=== PATIENT | female | born 1950 | race Caucasian/White ===

== ENCOUNTER → 2017-01-12 | Outpatient (CLI) | payer BC ==
[~2017-01-12] MED LIST: ACET65TA OR; ASPI81TA83 AD; BENI20TA11 OR; CETI10TA OR; K-TA10TA OR; PRIL20CA OR; SYNT137T OR
[2017-01-12 07:30] LABS: MEAN CORPUSCULAR HEMOGLOBIN 31.4 pg (27.0-33.0); MEAN CORPUSCULAR HGB CONC 33.8 g/dl (32.0-36.5); RED CELL DISTRIBUTION WIDTH 12.9 % (11.5-14.5); WHITE BLOOD COUNT 6.9 10^3/uL (4.0-10.0)
[2017-01-12 07:58] LABS: ALBUMIN 3.8 GM/DL (3.2-5.2); ALBUMIN/GLOBULIN RATIO 1.09 (1.00-1.93); ALKALINE PHOSPHATASE 77 U/L (45-117); ALT/SGPT 25 U/L (12-78); ANION GAP 10 MEQ/L (8-16); AST/SGOT 20 U/L (15-37); BILIRUBIN,TOTAL 0.6 MG/DL (0.2-1.0); BLOOD UREA NITROGEN 17 MG/DL (7-18); CALCIUM LEVEL 9.3 MG/DL (8.8-10.2); CARBON DIOXIDE LEVEL 27 MEQ/L (21-32); CHLORIDE LEVEL 104 MEQ/L (98-107); CHOLESTEROL LEVEL 234 MG/DL (<200); CREATININE FOR GFR 0.77 MG/DL (0.55-1.02); GLOMERULAR FILTRATION RATE > 60.0 (>45); GLUCOSE, FASTING 101 MG/DL (80-110); POTASSIUM SERUM 4.1 MEQ/L (3.5-5.1); SODIUM LEVEL 141 MEQ/L (136-145); TOTAL PROTEIN 7.3 GM/DL (6.4-8.2); TRIGLYCERIDES LEVEL 114 MG/DL (<150)
--- NOTE | 2017-01-12 08:01 | REP ---
Clinical: Hypertension . Comparison: 09/27/2013 . Technique: PA and lateral. Findings: The mediastinum and cardiac silhouette are normal. The lung dahl are clear and without acute consolidation, effusion, or pneumothorax. The skeletal structures are intact and normal. Impression: 1. No acute cardiopulmonary process. Signed by Luis Sheth MD 01/12/2017 07:52 A
--- NOTE | 2017-01-12 21:05 | ECGEPIP ---
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
== END ==
LOC: M RAD 06:07
PROVIDERS: ATTEND Family Medicine
DX: I10 Essential (primary) hypertension (principal); R53.83 Other fatigue

== ENCOUNTER 2017-09-25 07:24 | Emergency (ER) | payer MEDICARE ==
[2017-09-25] MEDS ORDERED: ISOVUE-370 76% 100ML VIAL (Q9967) As Ordered (07:51)
[2017-09-25] MEDS: PROMETHAZINE INJ 25 MG/ML VIAL (J2550) IV (08:12)
[2017-09-25] MEDS: MORPHINE 2 MG/ML 1ML SYRINGE (J2270) IV (08:29)
[2017-09-25 08:47] LABS: ALBUMIN 3.1 GM/DL (3.2-5.2); ALBUMIN/GLOBULIN RATIO 0.74 (1.00-1.93); ALKALINE PHOSPHATASE 73 U/L (45-117); ALT/SGPT 25 U/L (12-78); ANION GAP 6 MEQ/L (8-16); AST/SGOT 15 U/L (7-37); BILIRUBIN,DIRECT 0.1 MG/DL (0.0-0.2); BILIRUBIN,TOTAL 0.4 MG/DL (0.2-1.0); BLOOD UREA NITROGEN 12 MG/DL (7-18); CALCIUM LEVEL 8.6 MG/DL (8.8-10.2); CARBON DIOXIDE LEVEL 28 MEQ/L (21-32); CHLORIDE LEVEL 103 MEQ/L (98-107); CK-MB VALUE MASS < 1.0 NG/ML (<3.6); CPK CREATINE PHOSPHOKINASE 125 U/L (26-192); CREATININE FOR GFR 0.78 MG/DL (0.55-1.30); GLOMERULAR FILTRATION RATE > 60.0 (>45); GLUCOSE, FASTING 153 MG/DL (70-100); LIPASE 140 U/L (73-393); POTASSIUM SERUM 3.2 MEQ/L (3.5-5.1); SODIUM LEVEL 137 MEQ/L (136-145); TOTAL PROTEIN 7.3 GM/DL (6.4-8.2); TROPONIN I < 0.02 NG/ML (< 0.10)
[2017-09-25] MEDS: diphenhydrAMINE INJ 50MG/ML VIAL (J1200) IV (09:40)
[2017-09-25] MEDS: methylPREDNISolone INJ 125 MG/2 ML VIAL (J2930) IV (09:40)
[2017-09-25] MEDS: KETOROLAC 30 MG/ML VIAL (J1885) IV (10:56)
[2017-09-25] MEDS: AZITHROMYCIN 250 MG TAB PO (12:20)
== END 2017-09-25 12:37 | disposition home or self-care (01) ==
LOC: M ED 07:24
DX: R51 Headache (principal); R07.9 Chest pain, unspecified; R91.8 Other nonspecific abnormal finding of lung field; J02.0 Streptococcal pharyngitis; I10 Essential (primary) hypertension; E03.9 Hypothyroidism, unspecified; Z79.890 Hormone replacement therapy; Z79.899 Other long term (current) drug therapy; Z87.440 Personal history of urinary (tract) infections; Z86.69 Personal history of other diseases of the nervous system and sense organs; Z85.3 Personal history of malignant neoplasm of breast; Z87.09 Personal history of other diseases of the respiratory system; Z98.890 Other specified postprocedural states; Z88.8 Allergy status to other drugs, medicaments and biological substances; Z88.1 Allergy status to other antibiotic agents; Z88.2 Allergy status to sulfonamides
CPT/HCPCS: J1200

== ENCOUNTER → 2017-10-07 | Outpatient (CLI) | payer MEDICARE ==
[2017-10-07 20:09] LABS: BASO # 0.1 10^3/uL (0.0-0.2); BASO % 0.4 % (0.0-1.0); EOS # 0.2 10^3/uL (0.0-0.50); EOS % 1.3 % (0.0-3.0); HEMATOCRIT 41.3 % (36.0-47.0); HEMOGLOBIN 13.6 g/dl (12.0-15.5); LYMPH # 2.7 10^3/uL (1.5-4.5); LYMPH % 19.6 % (24.0-44.0); MEAN CORPUSCULAR HEMOGLOBIN 30.9 pg (27.0-33.0); MEAN CORPUSCULAR HGB CONC 32.9 g/dl (32.0-36.5); MEAN CORPUSCULAR VOLUME 93.9 fl (80.0-96.0); MONO # 0.8 10^3/uL (0.0-0.8); NEUTROPHILS # 9.7 10^3/uL (1.8-7.7); NEUTROPHILS % 71.7 % (36.0-66.0); PLATELET COUNT, AUTOMATED 282 10^3/uL (150-450); RED CELL DISTRIBUTION WIDTH 12.9 % (11.5-14.5); WHITE BLOOD COUNT 13.5 10^3/uL (4.0-10.0)
== END ==
LOC: M WUC 15:30
DX: R91.8 Other nonspecific abnormal finding of lung field (principal)
CPT/HCPCS: 86713

== ENCOUNTER → 2017-10-19 | Outpatient (CLI) | payer MEDICARE | LOC: M SMT 09:17 | DX: R91.8 Other nonspecific abnormal finding of lung field (principal) | CPT/HCPCS: 71046 ==

== ENCOUNTER → 2017-11-15 | Outpatient (CLI) | payer MEDICARE | LOC: M RAD 07:10 | DX: J84.10 Pulmonary fibrosis, unspecified (principal) | CPT/HCPCS: 71250 ==

== ENCOUNTER → 2018-11-17 | Outpatient (CLI) | payer MEDICARE ==
[~2018-11-17] MED LIST changes: +AZIT500T2 PO; +LOSARTAN/HCT
[2018-11-17 10:48] LABS: HEMATOCRIT 42.2 % (36.0-47.0); MEAN CORPUSCULAR HEMOGLOBIN 31.4 pg (27.0-33.0); MEAN CORPUSCULAR HGB CONC 33.2 g/dl (32.0-36.5); MEAN CORPUSCULAR VOLUME 94.6 fl (80.0-96.0); PLATELET COUNT, AUTOMATED 207 10^3/uL (150-450); RED BLOOD COUNT 4.46 10^6/uL (4.00-5.40); WHITE BLOOD COUNT 6.3 10^3/uL (4.0-10.0)
[2018-11-17 11:16] LABS: ALBUMIN 3.8 GM/DL (3.2-5.2); ALT/SGPT 28 U/L (12-78); AMYLASE 25 U/L (25-115); BILIRUBIN,TOTAL 0.4 MG/DL (0.2-1.0); BLOOD UREA NITROGEN 16 MG/DL (7-18); CALCIUM LEVEL 9.3 MG/DL (8.8-10.2); CARBON DIOXIDE LEVEL 31 MEQ/L (21-32); CHLORIDE LEVEL 105 MEQ/L (98-107); CREATININE FOR GFR 0.76 MG/DL (0.55-1.30); GLOMERULAR FILTRATION RATE > 60.0 (>45); GLUCOSE, FASTING 98 MG/DL (70-100); POTASSIUM SERUM 4.2 MEQ/L (3.5-5.1); SODIUM LEVEL 141 MEQ/L (136-145); TOTAL PROTEIN 7.1 GM/DL (6.4-8.2)
== END ==
LOC: M RAD 09:10
PROVIDERS: ATTEND Family Medicine
DX: K85.92 Acute pancreatitis with infected necrosis, unspecified (principal); Z79.899 Other long term (current) drug therapy

== ENCOUNTER → 2018-11-23 | Outpatient (CLI) | payer MEDICARE ==
[~2018-11-23] MED LIST changes: -AZIT500T2 PO; +AZIT500T5 PO; +GASTROGRAFIN SOLUTION 30ML (Q9963) As Ordered ONE; +ISOVUE-370 76% 100ML VIAL (Q9967) As Ordered ONE
--- NOTE | 2018-11-23 13:51 | REP ---
CT ABDOMEN WITH ORAL CONTRAST, WITH AND WITHOUT IV CONTRAST: TECHNIQUE: Axial noncontrast images through the abdomen followed by contrast-enhanced images through the abdomen using 100 mL Isovue 370 intravenous contrast material, with coronal and sagittal reformations. The visualized lung bases are clear. Tiny cyst or hemangioma seen at the right dome of the liver. This measures only a few millimeters in diameter. No other liver abnormality is seen. The gallbladder is mildly distended and grossly unremarkable. I do not see definite biliary dilatation. The spleen is normal in size with no intrinsic abnormality. The adrenals and pancreas are grossly unremarkable. A couple of tiny subcentimeter cysts are seen in the left kidney. No nephrolithiasis is seen bilaterally and there is no hydroureteronephrosis, with the ureters visualized into the upper pelvis. There is no abdominal aortic aneurysm with mild scattered arthrosclerotic calcification. There is no adenopathy. There is no free air or free fluid in the abdomen. No bowel wall thickening is seen. The appendix is normal. Metallic clips are seen in the anterior abdominal wall. There is a partially imaged left ovarian cyst, diameter of the visualized portion is 3.4 cm maximally. There are degenerative changes of the spine. IMPRESSION: Tiny liver and left renal cysts. No free air, free fluid, adenopathy, or bowel abnormality. In the visualized upper pelvis, a partially imaged cyst is seen of the left ovary 3.4 cm in maximum diameter. Recommend pelvic ultrasound to further evaluate. Electronically Signed by Barrett Deleon MD 11/24/2018 07:43 A
== END ==
LOC: M RAD 08:30
PROVIDERS: ATTEND Family Medicine
DX: N83.202 Unspecified ovarian cyst, left side (principal); K76.89 Other specified diseases of liver; N28.1 Cyst of kidney, acquired
CPT/HCPCS: 74170; Q9963; Q9967

== ENCOUNTER → 2018-12-02 | Outpatient (CLI) | payer MEDICARE ==
[~2018-12-02] MED LIST changes: +AZIT500T2 PO; -AZIT500T5 PO; -GASTROGRAFIN SOLUTION 30ML (Q9963) As Ordered ONE; -ISOVUE-370 76% 100ML VIAL (Q9967) As Ordered ONE
--- NOTE | 2018-12-02 10:30 | REP ---
REASON: Left lower quadrant pain. COMPARISON: 02/25/2009. Transvesical and transvaginal imaging was obtained. The uterus measures 6.9 x 37 x 3.7 cm. Two hypoechoic structures are seen in the uterine parenchyma. One is anterior measuring 1 cm in its greatest dimension, the other seen posterior measuring 1.5 cm in its greatest dimension both representing myomatous change. The endometrial echo complex is thin with a maximal thickness of approximately 2 mm but slightly distorted by the myomatous change. There is no free fluid in the endometrial cavity and there is no free fluid in the cervical canal. The right ovary was not visualized transvesically or transvaginally. The left ovary measures 3.9 x 2.6 x 3.8 cm. Within the substance of the left ovary, there is a 3 cm size anechoic structure, which exhibits posterior wall enhancement and increased through transmission showing no evidence of papillary projections or septations. The urinary bladder measures 5 x 4 x 10 cm. IMPRESSION: 1. Uterine myomatous changes as described above. 2. Left ovarian cyst. 2-month followup is recommended to ensure resolution. Electronically Signed by Jose Martin Willingham DO 12/02/2018 02:12 P
== END ==
LOC: M RAD 08:20
PROVIDERS: ATTEND Family Medicine
DX: R10.32 Left lower quadrant pain (principal); N83.9 Noninflammatory disorder of ovary, fallopian tube and broad ligament, unspecified

== ENCOUNTER → 2018-12-22 | Outpatient (CLI) | payer MEDICARE ==
[~2018-12-22] MED LIST changes: -AZIT500T2 PO; +AZIT500T5 PO
--- NOTE | 2018-12-22 12:59 | REP ---
Clinical: Abnormal lung findings. Technique: Axial noncontrast images from the thoracic inlet to the upper abdomen with coronal and sagittal re-formations. Comparison: 11/08/2017. Findings: Bilateral lung dahl are well-aerated, symmetric and clear. Previously noted left lower lobe infiltrate has completely resolved. No acute consolidation,, nodule or mass lesion. No pleural effusion. No pneumothorax. Tracheobronchial tree is patent. No adenopathy. Mediastinum demonstrates normal thoracic aorta, pulmonary vasculature and heart/pericardium. Musculoskeletal structures are intact. Limited upper abdomen demonstrates normal bilateral adrenal glands. Evidence for prior bilateral mastectomy. Impression: 1. No acute mediastinal or pleuroparenchymal process appreciated. 2. Complete resolution to the previously noted left lower lobe infiltrate. Electronically Signed by Luis Sheth MD 12/22/2018 12:50 P
== END ==
LOC: M RAD 12:29
PROVIDERS: ATTEND Internal Medicine Pulmonary Disease
DX: R91.8 Other nonspecific abnormal finding of lung field (principal); Z90.13 Acquired absence of bilateral breasts and nipples

== ENCOUNTER → 2019-02-06 | Outpatient (CLI) | payer MEDICARE ==
--- NOTE | 2019-02-06 11:33 | REP ---
PELVIC ULTRASOUND: Real-time sonographic evaluation of the pelvis is performed utilizing transabdominal and endovaginal technique. The bladder measures 4.9 x 3.8 x 8.9 cm. The uterus measures 7.6 x 3.6 x 4.2 cm. Endometrial thickness is approximately 2 mm. There is no endometrial fluid collection. There appears to be a fundal fibroid 1.3 cm in diameter. There is an adjacent subcentimeter fibroid. Right ovary is not visualized. Left ovary measures 4.4 x 2.8 x 3.7 cm. There is a simple cyst in the left ovary 3.3 x 2.4 x 2.8 cm. This is essentially unchanged compared to the prior study of 12/02/2018. Blood flow is seen in the left ovary with duplex Doppler evaluation, with no torsion. No free fluid is seen. IMPRESSION: Fibroid changes again seen of the uterus. Simple cyst left ovary is stable compared to the prior study of 12/02/2018. Electronically Signed by Barrett Deleon MD 02/07/2019 05:32 P
== END ==
LOC: M RAD 10:22
PROVIDERS: ATTEND Nurse Practitioner Women's Health
DX: N83.202 Unspecified ovarian cyst, left side (principal); D25.9 Leiomyoma of uterus, unspecified

== ENCOUNTER → 2019-02-20 | Outpatient (CLI) | payer MEDICARE ==
[2019-02-20 10:07] LABS: HEMATOCRIT 45.6 % (36.0-47.0); HEMOGLOBIN 14.9 g/dl (12.0-15.5); MEAN CORPUSCULAR HGB CONC 32.7 g/dl (32.0-36.5); MEAN CORPUSCULAR VOLUME 94.8 fl (80.0-96.0); PLATELET COUNT, AUTOMATED 216 10^3/uL (150-450); RED BLOOD COUNT 4.81 10^6/uL (4.00-5.40); WHITE BLOOD COUNT 6.1 10^3/uL (4.0-10.0)
[2019-02-20 10:28] LABS: INR 1.05; PROTHROMBIN TIME 13.4 SECONDS (11.8-14.0)
[2019-02-20 10:46] LABS: ALBUMIN 3.9 GM/DL (3.2-5.2); ALT/SGPT 28 U/L (12-78); BILIRUBIN,TOTAL 0.5 MG/DL (0.2-1.0); BLOOD UREA NITROGEN 16 MG/DL (7-18); CALCIUM LEVEL 9.3 MG/DL (8.8-10.2); CARBON DIOXIDE LEVEL 29 MEQ/L (21-32); CHLORIDE LEVEL 107 MEQ/L (98-107); CHOLESTEROL LEVEL 244 MG/DL (<200); CHOLESTEROL RISK RATIO 3.436 (<5); CREATININE FOR GFR 0.83 MG/DL (0.55-1.30); GLOMERULAR FILTRATION RATE > 60.0 (>45); GLUCOSE, FASTING 101 MG/DL (70-100); HDL CHOLESTEROL 71 MG/DL (>40); LDL CHOLESTEROL 155 MG/DL (<100); NON-HDL-C 173 MG/DL; POTASSIUM SERUM 4.1 MEQ/L (3.5-5.1); SODIUM LEVEL 142 MEQ/L (136-145); THYROID STIMULATING HORMONE 0.528 uIU/ML (0.358-3.740); TOTAL PROTEIN 7.6 GM/DL (6.4-8.2); TRIGLYCERIDES LEVEL 88 MG/DL (<150)
[2019-02-20 11:06] LABS: HEMOGLOBIN A1c 5.5 %
--- NOTE | 2019-02-20 11:34 | REP ---
CHEST X-RAY: Two views. HISTORY: Preop eye surgery. Comparison chest x-ray October 19, 2017. FINDINGS: The lungs are symmetrically aerated and clear. There are surgical clips overlying the axillary soft tissues bilaterally. The patient appears to be status post bilateral mastectomy. Pleural angles are sharp. Heart size is normal. There are degenerative changes in the thoracic spine. IMPRESSION: Patient status post bilateral mastectomy. Surgical clips are noted. Degenerative changes are seen in the thoracic spine. Otherwise no acute disease. Electronically Signed by Remi Jiménez MD 02/20/2019 12:38 P
--- NOTE | 2019-02-20 21:48 | ECGEPIP ---
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
== END ==
LOC: M LAB 09:44
PROVIDERS: ATTEND Family Medicine
DX: I10 Essential (primary) hypertension (principal); Z90.13 Acquired absence of bilateral breasts and nipples; M51.34 Other intervertebral disc degeneration, thoracic region; Z79.899 Other long term (current) drug therapy

== ENCOUNTER → 2019-12-19 | Outpatient (CLI) | payer MEDICARE ==
[2019-12-19 06:43] LABS: HEMATOCRIT 42.9 % (36.0-47.0); HEMOGLOBIN 14.2 g/dl (12.0-15.5); MEAN CORPUSCULAR HEMOGLOBIN 31.2 pg (27.0-33.0); MEAN CORPUSCULAR HGB CONC 33.1 g/dl (32.0-36.5); MEAN CORPUSCULAR VOLUME 94.3 fl (80.0-96.0); PLATELET COUNT, AUTOMATED 207 10^3/uL (150-450); RED BLOOD COUNT 4.55 10^6/uL (4.00-5.40); WHITE BLOOD COUNT 7.9 10^3/uL (4.0-10.0)
[2019-12-19 07:20] LABS: ALBUMIN 3.8 GM/DL (3.2-5.2); ALT/SGPT 28 U/L (12-78); BILIRUBIN,TOTAL 0.4 MG/DL (0.2-1.0); BLOOD UREA NITROGEN 17 MG/DL (7-18); CARBON DIOXIDE LEVEL 31 MEQ/L (21-32); CHLORIDE LEVEL 106 MEQ/L (98-107); CHOLESTEROL LEVEL 229 MG/DL (<200); CHOLESTEROL RISK RATIO 3.948 (<5); CREATININE FOR GFR 0.75 MG/DL (0.55-1.30); GLOMERULAR FILTRATION RATE > 60.0 (>45); GLUCOSE, FASTING 101 MG/DL (70-100); HDL CHOLESTEROL 58 MG/DL (>40); LDL CHOLESTEROL 150 MG/DL (<100); NON-HDL-C 171 MG/DL; SODIUM LEVEL 140 MEQ/L (136-145); TOTAL PROTEIN 7.1 GM/DL (6.4-8.2); TRIGLYCERIDES LEVEL 107 MG/DL (<150)
[2019-12-19 07:44] LABS: HEMOGLOBIN A1c 5.6 %
[2019-12-19 10:14] LABS: TOTAL 25(OH) VITAMIN D 37.4 NG/ML (30.0-100.0)
== END ==
LOC: M LAB 06:01
PROVIDERS: ATTEND Family Medicine
DX: I10 Essential (primary) hypertension (principal); E11.9 Type 2 diabetes mellitus without complications; E03.9 Hypothyroidism, unspecified; R53.83 Other fatigue

== ENCOUNTER → 2020-10-23 | Outpatient (REF) | payer MEDICARE | LOC: M LAB REF 12:10 | PROVIDERS: ATTEND Internal Medicine | DX: R10.9 Unspecified abdominal pain (principal) ==

== ENCOUNTER 2020-11-05 06:29 | Emergency (ER) | payer MEDICARE ==
[~2020-11-05] VITALS: Ht 157.5 cm; Wt 81.8 kg
[2020-11-05 06:30] VITALS: BP 178/93
[2020-11-05] MEDS ORDERED: HYDR12.55 (06:39)
[2020-11-05] MEDS ORDERED: SYNT137T7 (06:39)
[2020-11-05] MEDS ORDERED: LOSA50TA88 (06:39)
[2020-11-05] MEDS ORDERED: DOXY100T27 (06:39)
[2020-11-05] MEDS ORDERED: PRED20TA (06:39)
[2020-11-05] MEDS ORDERED: POTA1TAB23 (06:39)
[2020-11-05] MEDS ORDERED: ALBU8.5H (06:39)
--- NOTE | 2020-11-05 08:10 | REP ---
INDICATION: cough x10 days. COMPARISON: Comparison radiographs September 27, 2013.. TECHNIQUE: Three views, soft tissue neck series. FINDINGS: There is straightening of the normal cervical lordosis. Degenerative disc disease is noted at C5-6 and C6-7 similar to the changes seen on the 2014 prior study. The prevertebral soft tissues are not widened. Epiglottis and aryepiglottic folds are intact. The laryngeal and subglottic airway is unremarkable. Nasopharynx and hypopharynx appear clear. IMPRESSION: Negative soft tissue neck radiographs apart from some spondylosis in the cervical spine. <Electronically signed by Conor Jiménez > 11/05/20 0868
--- NOTE | 2020-11-05 08:12 | REP ---
INDICATION: cough x10 days. COMPARISON: 02/20/2019 TECHNIQUE: Two views FINDINGS: The lung dahl are well inflated. CP angles sharply defined without effusion and there is no lateral pleural thickening, apical scarring, pulmonary nodule or parenchymal mass. Prominent epicardial fat pad along the right heart border again seen. Heart is not enlarged. No vascular redistribution. The aorta is normal for age. Airway intact. Degenerative changes in the spine. No free air under the diaphragm. The patient is status post bilateral mastectomy with axillary surgical clips bilaterally. IMPRESSION: Prior bilateral mastectomy without acute cardiopulmonary change. <Electronically signed by Jeffery Greenberg > 11/05/20 0819
[2020-11-05] MEDS ORDERED: ONDANSETRON 4MG/2ML VIAL IV ONE (09:10)
[2020-11-05] MEDS ORDERED: NS 1,000 ML IV ONE (09:10)
[2020-11-05] MEDS ORDERED: ACETAMINOPHEN 500 MG TAB PO ONE (09:10)
--- NOTE | 2020-11-05 09:42 | REP ---
INDICATION: headache, nausea. COMPARISON: None. TECHNIQUE: CT BRAIN PERFORMED IN THE AXIAL PLANE. CORONAL RECONSTRUCTION IMAGES ARE PERFORMED. FINDINGS: THE VENTRICLES ARE NORMAL IN SIZE AND POSITION FOR HER GIVEN AGE. THERE IS NO MIDLINE SHIFT OR MASS EFFECT. MONTERO-WHITE DIFFERENTIATION IS WELL MAINTAINED. THERE IS NO ACUTE INTRACRANIAL HEMORRHAGE OR EXTRA-AXIAL FLUID COLLECTION. BONE WINDOW EXAMINATION IS UNREMARKABLE. VISUALIZED MASTOID AIR CELLS AND PARANASAL SINUSES ARE CLEAR. IMPRESSION: NEGATIVE NONCONTRAST CT BRAIN. <Electronically signed by Jeffery Greenberg > 11/05/20 0938
[2020-11-05 09:52] LABS: HEMATOCRIT 49.7 % (36.0-47.0); HEMOGLOBIN 16.5 g/dl (12.0-15.5); MEAN CORPUSCULAR HEMOGLOBIN 31.1 pg (27.0-33.0); MEAN CORPUSCULAR HGB CONC 33.2 g/dl (32.0-36.5); MEAN CORPUSCULAR VOLUME 93.8 fl (80.0-96.0); PLATELET COUNT, AUTOMATED 237 10^3/uL (150-450); WHITE BLOOD COUNT 14.8 10^3/uL (4.0-10.0)
[2020-11-05] MEDS ORDERED: ALBUTEROL 90 MCG/ACT 8GM HFA INHALER INH ONE (10:00)
[2020-11-05] MEDS ORDERED: BENZONATATE 100 MG CAP PO ONE (10:00)
[2020-11-05 10:46] LABS: ATYPICAL LYMPH 7 % (0-5); BASOPHILS 1 % (0-1); LYMPHOCYTES 27 % (16-44); MONOCYTES 8 % (0-5); NEUTROPHILS 56 % (28-66)
[2020-11-05 10:47] LABS: EOSINOPHILS 1 % (0-3)
[2020-11-05 10:48] LABS: PLATELET ESTIMATE NORMAL (NORMAL)
[2020-11-05 12:08] LABS: ALBUMIN 3.7 GM/DL (3.2-5.2); ALT/SGPT 52 U/L (12-78); AMYLASE 17 U/L (25-115); BILIRUBIN,DIRECT < 0.1 MG/DL (0.0-0.2); BILIRUBIN,TOTAL 0.6 MG/DL (0.2-1.0); BLOOD UREA NITROGEN 24 MG/DL (7-18); CALCIUM LEVEL 8.5 MG/DL (8.8-10.2); CARBON DIOXIDE LEVEL 29 MEQ/L (21-32); CHLORIDE LEVEL 105 MEQ/L (98-107); CK-MB VALUE MASS < 1.0 NG/ML (<3.6); CPK CREATINE PHOSPHOKINASE 76 U/L (26-192); CREATININE FOR GFR 0.83 MG/DL (0.55-1.30); FREE T4 1.41 NG/DL (0.76-1.46); GLOMERULAR FILTRATION RATE > 60.0 (>45); GLUCOSE, FASTING 88 MG/DL (70-100); LIPASE 167 U/L (73-393); MB/CK RELATIVE INDEX 1.32 (< OR =4); SODIUM LEVEL 140 MEQ/L (136-145); TROPONIN I < 0.02 NG/ML (< 0.10)
[2020-11-05] MEDS ORDERED: METOCLOPRAMIDE INJ 10MG/2ML VIAL (J2765 PER 1) IV ONE (12:45)
[2020-11-05] MEDS ORDERED: PANTOPRAZOLE 40MG VIAL (C9113 PER 1) IV ONE (12:45)
[2020-11-05] MEDS ORDERED: FLON1SPR NARES (13:14)
[2020-11-05] MEDS ORDERED: REGL5TAB2 PO (13:15)
[2020-11-05] MEDS ORDERED: ACETAMINOPHEN 325 MG TAB PO ONE (13:25)
[2020-11-05] MEDS ORDERED: PANT20TA6 PO (14:27)
[2020-11-05] MEDS ORDERED: AUGM875T28 PO (14:29)
--- NOTE | 2020-11-06 05:10 | ECGEPIP ---
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
== END 2020-11-05 15:39 | disposition home or self-care (01) ==
LOC: M ED 06:29
DX: J01.90 Acute sinusitis, unspecified (principal); H61.20 Impacted cerumen, unspecified ear; R11.0 Nausea; E86.0 Dehydration; I10 Essential (primary) hypertension; E03.9 Hypothyroidism, unspecified; Z90.13 Acquired absence of bilateral breasts and nipples
CPT/HCPCS: 36415; 70360; 70450; 71046; 80048; 80076; 81001; 82150; 82550; 82553; 83690; 84439; 84443; 84484; 85025; 87798; 87880; 93005; 94640; 96361; 96374; 96375; 99284; C9113; J2405; J2765

== ENCOUNTER → 2020-11-06 | Outpatient (CLI) | payer MEDICARE ==
[~2020-11-06] MED LIST changes: +ALBU8.5H; +AUGM875T28 PO; +DOXY100T27; +FLON1SPR NARES; +HYDR12.55; +LOSA50TA88; +PANT20TA6 PO; +POTA1TAB23; +PRED20TA; +REGL5TAB2 PO; +SYNT137T7
--- NOTE | 2020-11-06 13:35 | REP ---
INDICATION: F/U LT OVARIAN CYST. COMPARISON: 02/06/2019 TECHNIQUE: Transabdominal sonography using the bladder is acoustic window with color and Doppler evaluation of the adnexa. FINDINGS: Bladder is well filled. Uterus seen and anteverted measuring 8.2 x 2.8 x 5.9 cm. There is a central endometrial echogenic stripe with a thickness of 6.9 mm. No definite fluid in the endometrial cavity. No free fluid in the cul-de-sac. Left ovary is 2.4 x 1.3 x 1.7 cm. Doppler tracing shows resistive index 0.51. There is complete resolution of the cyst seen in the left ovary on the previous study. Normal color flow in that ovary. Right ovary is 4.4 x 3 x 3.7 cm and it shows Doppler tracing with resistive index 0.68. Color flow is confirmed in the ovary without torsion. However there is now a 3.6 x 3.2 x 2.9 cm cyst within the right ovary. It may have 1 septation or be 2 adjacent cysts. No fluid adjacent to either ovary or in the cul-de-sac. IMPRESSION: 1. Complete clearing of the left ovarian cyst seen on previous ultrasound 02/06/2019. 2. Interval development of a cyst in the right ovary 3.6 x 3.2 x 2.9 cm, either a mildly complex cyst with septation or 2 adjacent cysts. No color flow within it or other internal echoes. There is normal blood flow to both ovaries and Doppler tracings show arterial flow, no evidence of torsion. 3. Uterus, endometrial stripe and cul-de-sac unremarkable. <Electronically signed by Jeffery Greenberg > 11/06/20 [id number]
== END ==
LOC: M RAD 12:44
PROVIDERS: ATTEND Internal Medicine
DX: N83.202 Unspecified ovarian cyst, left side (principal)

== ENCOUNTER → 2020-11-28 | Outpatient (CLI) | payer MEDICARE ==
[~2020-11-28] MED LIST changes: +E-Z-GAS II EFFERVESCENT PACKET (SODIUM BICARB./CITRIC ACID/SIMETHICONE) As Ordered ONE; +E-Z-HD 98% w/w 340GM SUSP BTL As Ordered ONE; +E-Z-PAQUE 96% w/w SUSP 176GM BTL As Ordered ONE
--- NOTE | 2020-11-28 21:56 | REP ---
INDICATION: DYSPHAGIA. COMPARISON: None. TECHNIQUE: The procedure was performed under the direct supervision of Dr. Jiménez. The images were reviewed with Dr. Jiménez. Liquid barium and gas producing crystals were given in the erect position as well as liquid barium in the prone oblique position in order to perform a double contrast upper GI examination. A combination of fluoroscopy, spot films and last image hold technology was utilized. 2.2 minutes of fluoro time was utilized for this procedure. 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 The intestinal gas pattern is non-specific. There are multiple surgical clips seen throughout the abdomen. There are osteoarthritic changes at the lumbar facets and pubic symphysis. The oral and pharyngeal stages of deglutition are unremarkable. During esophageal transport there are tertiary waves demonstrated. There is no esophagitis, stricture, mucosal ring or hiatal hernia. There is gastroesophageal reflux demonstrated to the level of the miles. The stomach conway are normally outlined. The rugal folds are smooth and regular. There is no gastritis neoplasm or ulcer disease. The duodenal conway are normally outlined. The mucosal folds are smooth and regular. There is no duodenitis pancreatitis peptic ulcer disease or neoplasm. The visualized portion of the proximal small bowel appears normal in course and caliber. IMPRESSION: 1. Tertiary waves. 2. There is gastroesophageal reflux demonstrated to the level of the miles. <Electronically signed by Jeronimo Wolfe > 11/28/20 1617 <Electronically signed by Conor Jiménez > 11/28/20 [id number]
== END ==
LOC: M RAD 08:45
PROVIDERS: ATTEND Internal Medicine
DX: R13.10 Dysphagia, unspecified (principal)

== ENCOUNTER → 2021-01-07 | Outpatient (CLI) | payer MEDICARE ==
[~2021-01-07] MED LIST changes: -E-Z-GAS II EFFERVESCENT PACKET (SODIUM BICARB./CITRIC ACID/SIMETHICONE) As Ordered ONE; -E-Z-HD 98% w/w 340GM SUSP BTL As Ordered ONE; -E-Z-PAQUE 96% w/w SUSP 176GM BTL As Ordered ONE
== END ==
LOC: M PLALAB 10:50
PROVIDERS: ATTEND Obstetrics & Gynecology
DX: N83.201 Unspecified ovarian cyst, right side (principal); Z79.51 Long term (current) use of inhaled steroids; Z79.52 Long term (current) use of systemic steroids; Z79.899 Other long term (current) drug therapy

== ENCOUNTER → 2021-01-16 | Outpatient (CLI) | payer MEDICARE ==
--- NOTE | 2021-01-16 13:06 | REP ---
INDICATION: RIGHT OVARIAN CYST. COMPARISON: Comparison pelvic sonography November 06, 2020. TECHNIQUE: Transabdominal and transvaginal scanning were performed. FINDINGS: Uterine dimensions are normal at 7.1 x 3.8 by 4.5 cm. Endometrial echo is 0.3 cm thick and centrally placed. No free fluid is seen in the cul-de-sac. Visualized bladder conway are smooth. There is a 0.6 cm hypoechoic area in the anterior uterus and a 1.4 cm hyperechoic area posterior to the endometrium in the uterus consistent with fibroid change. The right ovary has dimensions of 2.3 x 1.4 x 1.9 cm. It's Doppler flow is normal with a resistive index of 0.61. No right ovarian abnormality. No right ovarian cyst seen. The left ovary dimensions are normal as well at 3.9 x 3.0 x 3.8 cm. It's Doppler flow was normal with resistive index of 0.55. There is a 3.7 x 2.5 x 3.1 cm unilocular simple cyst in the left ovary. IMPRESSION: Small uterine fibroids. 3.7 cm unilocular simple appearing left ovarian cyst. No right ovarian cyst seen today. <Electronically signed by Conor Jiménez > 01/16/21 [id number]
== END ==
LOC: M WHC 12:22
PROVIDERS: ATTEND Obstetrics & Gynecology
DX: N83.202 Unspecified ovarian cyst, left side (principal); D25.9 Leiomyoma of uterus, unspecified

== ENCOUNTER → 2021-02-12 | Outpatient (CLI) | payer MEDICARE ==
[~2021-02-12] MED LIST changes: +LEVOTAB10; +OMEP40CA4
== END ==
LOC: M LABSMTC 09:45
PROVIDERS: ATTEND Anesthesiology
DX: Z01.812 Encounter for preprocedural laboratory examination (principal); Z20.822 Contact with and (suspected) exposure to COVID-19

== ENCOUNTER 2021-02-17 07:28 | Day surgery (SDC) | payer MEDICARE ==
[~2021-02-17] VITALS: Ht 157.5 cm; Wt 83.8 kg
[~2021-02-17 07:28] MED LIST changes: +NS 1,000 ML IV ONE
--- OUTSIDE RECORDS SUMMARY | 2021-02-17 07:32 | CCD | Continuity of Care Document ---
Author Author Marycruz Keating M.D. Organization Unknown Address [address] [place] [address] Phone [phone] Care Team Providers Care Lead Consultant Name Role Phone Tamara Keating MD [facility] [phone] Problems Active Problems Provider Date Essential hypertension Tamara Keating M.D. Onset: 2020 Abnormal glucose level Tamara Keating M.D. Onset: 2020 Pure hypercholesterolemia Tamara Keating M.D. Onset: 10/2020 Hypothyroidism Tamara Keating M.D. Onset: Social History Type Date Description Comments Sex Unknown ETOH Use Occasionally consumes alcohol 1- 3 times a week Tobacco Use Start: Unknown End: Unknown Patient is a former smoker smoked for 12 years x1/2 ppd quit in 1987 Smoking Status Reviewed: 10/23/20 Patient is a former smoker sm oked for 12 years x1/2 ppd quit in 1987 Allergies and adverse reactions Active Allergies Criticality Reaction | Severity Comments Date Heparin Unable to assess criticality causes her t o clot 10/23/2020 Medications Active Medications SIG Qnty Indications Ordering Provide r Date Xyzal Allergy 24HR 5mg Tablets 1 by mouth every day and 1 po qd prn machine bender Jennifer Coker 01/23/[address] 1 by mouth every day 30caps Tamara Keating M.D. 12/04/19 21 Losartan Potassium 50mg Tablets 1 by mouth every day 90tabs Tamara Keating M.D. 10/24/19 21 Synthroid 137mcg Tablets 1 by mouth every day Jose 90tabs Tamara Keating M.D. 10/24/19 21 Hydrochlorothiazide 12.5mg Tablets 1 by mouth every day 90tabs Tamara Keating M.D. 10/24/19 21 Klor-Con M10 10Meq Tablets ER 1 by mouth every day 90tabs Tamara Keating M.D. 10/24/19 21 Multi For Her 50+ Capsules e very day Tamara Keating M.D. 10/23/2020 Vitamin D3 Super Strength 50mcg (2000 Ut) Capsules 1 by mouth every day 30caps Monster Coker 10/23/2020 Calcium 600mg/d Tamara Keating M.D. 0 10/23/2020 History Medications Omeprazole 20mg Capsules DR 1 by mouth twice a day 60caps Tamara Keating M.D. 11/30/19 21 - 12/03/2020 Fexofenadine HCL 180mg Tablets take one tablet by mouth every day 90tabs Jennifer Coker 10/23/2020 - 01/23/2021 Medications Administered in Office Medication SIG Qnty Indications Ordering Provider Date Administration Of Flu Vaccine Inj ection Tamara Keating M.D. 01/24/20 21 Covid-19 vaccine, Unspecified Inj ection Unknown 06/21/2020 Covid-19 vaccine, Unspecified Inj ection Unknown 05/21/2020 Immunizations CPT Code Status Date Vaccine Lot # [id number] Given 01/23/2021 Influenza Vaccin e Quadrivalent Preser/Antibiotic Free Im Use [id number] Vital Signs Date Vital Result Comment 01/23/2021 8:22am BP Systolic 126 mmHg LT Arm BP Diastolic 86 mmHg LT Arm Heart Rate 64 /min Height 62 inches 5'2" Weight 186.50 lb BMI (Body Mass Index) 34.1 kg/m2 10/23/2020 7:53am BP Systolic 124 mmHg BP Diastolic 72 mmHg Heart Rate 81 /min Height 62 inches 5'2" Weight 187.00 lb BMI (Body Mass Index) 34.2 kg/m2 Results Test Acquired Date Facility Test Result H/L Range Note Lipid Profile 01/21/2021 [facility] Tool Drawing Checker: [place] [address] [phone] Cholesterol 237 mg/dL High 131 - 200 Triglycerides 93 mg/dL 30 - 150 HDL Cholesterol 62 mg/dL High 35 - 60 LDL (Calculated) 156 CALC 50 - 159 Basic Metabolic Panel 01/21/2021 [facility] Tool Drawing Checker: Dr Nomi Aragon [place] [id number] [phone] Glucose 99 mg/dL 74 - 99 1 BUN 18 mg/dL 7 - 18 Creatinine 0.9 mg/dL 0.6 - 1.3 Sodium 143 mEq/L 136 - 145 Potassium 4.0 mEq/L 3.5 - 5.1 Chloride 104 mEq/L 98 - 107 Carbon Dioxide 24 mEq/L 21 - 32 Calcium 9.5 mg/dL 8.5 - 10.1 GFR >= 60 mL/min >60 GFR >= 60 mL/min >60 2 Laboratory test finding 01/07/2021 [place] [id number] [phone] CA 125 3.8 U/ML Normal <30.2 3 Human Epididymis Protein 4 01/07/[address] [address] [phone] He4 45.3 pmol/L Normal 0.0-96.5 4 Liver Profile 11/05/2020 [facility] nter [address] [place] [address] [phone] Ast/Sgot 26 U/L Normal 7-37 Alt/SGPT 52 U/L Normal 12-78 Alkaline Phosphatase 81 U/L Normal 45-117 Bilirubin,Total 0.6 mg/dL Normal 0.2-1.0 Bilirubin,Direct < 0.1 mg/dL Normal 0.0-0.2 Total Protein 7.0 GM/DL Normal 6.4-8.2 Albumin 3.7 GM/DL Normal 3.2-5.2 Albumin/Globulin Ratio 1.1 Low 1.2-2.2 Ua W/ Reflex To Culture 11/05/2020 [place] [id number] [phone] Appearance, Urine RFX CLEAR Normal Clear Color, Urine RFX STRAW Normal Yellow PH,Urine RFX 6.0 units Normal 5.0-9.0 Specific Laurel Ur Auto RFX 1.005 Normal 1.002-1.035 Protein, Urine Auto RFX NEGATIVE mg/dL Normal Negative Glucose, Urine (Ua) Auto RFX NEGATIVE mg/dL Normal Negative Ketone, Urine Auto RFX NEGATIVE mg/dL Normal Negative Urobilinogen, Urine Auto RFX 0.2 mg/dL Normal 0.0-2.0 Bilirubin, Urine Auto RFX NEGATIVE Normal Negative Nitrite, Urine Auto RFX NEGATIVE Normal Negative Leukocyte Esterase Ur Auto RFX NEGATIVE Normal Negative Blood, Urine Blood RFX NEGATIVE Normal Negative WBC, Urine Auto RFX 0 /HPF Normal 0-3 RBC, Urine Auto RFX 1 /HPF Normal 0-3 Bacteria, Urine Auto RFX NEGATIVE Normal Negative Squam Epithelial Cell Ur Aurfx 0 /HPF Normal 0-6 Hyaline Cast, Urine Auto RFX 0 /LPF Normal 0-1 Gats (Negative Strep Screen) 11/05/[address] [address] [phone] Gats Culture (Neg Strep SCR) FULL REPORT IN L <SEE N OTE> Normal 5 Laboratory test finding 11/05/[address] [address] [phone] Platelet Estimate NORMAL Normal Normal Differential 11/05/2020 [facility] nter [address] [place] [address] [phone] Neutrophils 56 % Normal 28-66 Lymphocytes 27 % Normal 16-44 Monocytes 8 % High 0-5 Eosinophils 1 % Normal 0-3 Basophils 1 % Normal 0-1 Atypical Lymph 7 % High 0-5 RBC Morphology NORMAL Normal CBC With Differential 11/05/[address] [address] [phone] White Blood Count 14.8 10 High 4.0-10.0 Red Blood Count 5.30 10 Normal 4.00-5.40 Hemoglobin 16.5 g/dL High 12.0-15.5 Hematocrit 49.7 % High 36.0-47.0 Mean Corpuscular Volume 93.8 fl Normal 80.0-96.0 Mean Corpuscular Hemoglobin 31.1 pg Normal 27.0-33.0 Mean Corpuscular HGB Conc 33.2 g/dL Normal 32.0-36.5 Red Cell Distribution Width 13.1 % Normal 11.5-14.5 Platelet Count, Automated 237 10 Normal 150-450 Nucleated Red Blood Cell % 0.0 % Normal 0-0 Laboratory test finding 11/05/2020 [facility] [address] [place] [address] [phone] Gisela Strep A NEGATIVE Normal Negative Respiratory Panel 11/05/2020 [facility] nter [address] [place] [address] [phone] Respiratory Panel This respiratory <SEE NOTE> 6 Laboratory test finding 11/05/[address] [address] [phone] Amylase 17 U/L Low 25-115 7 Lipase 167 U/L Normal 73-393 8 Thyroid Stimulating Hormone 1.390 uIU/ML Normal 0.358-3.740 9 Free T4 1.41 ng/dL Normal 0.76-1.46 10 Basic Metabolic Profile 11/05/[address] [address] [phone] Glucose, Fasting 88 mg/dL Normal 70-100 Blood Urea Nitrogen 24 mg/dL High 7-18 Creatinine For GFR 0.83 mg/dL Normal 0.55-1.30 Glomerular Filtration Rate > 60.0 Normal >45 1 1 Sodium Level 140 mEq/L Normal 136-145 Potassium Serum 4.0 mEq/L Normal 3.5-5.1 Chloride Level 105 mEq/L Normal 98-107 Carbon Dioxide Level 29 mEq/L Normal 21-32 Anion Gap 6 mEq/L Low 8-16 Calcium Level 8.5 mg/dL Low 8.8-10.2 Cardiac Marker Panel 11/05/2020 [facility] enter [address] [place] [address] [phone] CPK Creatine Phosphokinase 76 U/L Normal 26-19 2 CK-MB Value Mass < 1.0 NG/ML Normal <3.6 MB/CK Relative Index 1.32 Normal < Or =4 12 Troponin I < 0.02 NG/ML Normal < 0.10 13 Laboratory test finding 10/23/2020 [facility] [address] [place], [place] [id number] [phone] Lipase 181 U/L Normal 73-393 Complete Blood Count 10/23/2020 [facility] Tool Drawing Checker: [place] [address] [phone] WBC 7.1 x10*3/UL 4.1 - 10.9 RBC 4.41 x10*6/UL 4.20 - 6.30 Hemoglobin 13.7 g/dL 12.0 - 18.0 Hematocrit 40.0 % 37.0 - 51.0 MCV 90.7 fL 80.0 - 97.0 MCH 31.1 pg 26.0 - 32.0 MCHC 34.3 g/dL 31.0 - 38.0 RDW 13.2 % 11.6 - 13.7 PLT 195 x10*3/UL 140 - 440 MPV 8.0 FL 7.8 - 11.0 Lymph % 30.1 % 10.0 - 58.5 Mid % 7.8 % 1.7 - 9.3 Neut % 62.1 % 37.0 - 92.0 Lymph # 2.1 x10*3/UL 0.6 - 4.1 Mid # 0.6 x10*3/UL 0.1 - 0.6 Neut # 4.4 x10*3/UL 2.0 - 7.8 A1c 10/23/2020 [facility] Tool Drawing Checker: [place] [address] [phone] Hba1c 5.8 % High <5.7 14 Est Avg Glucose 120 mg/dL High 60 - 110 Laboratory test finding 10/23/2020 [facility] Tool Drawing Checker: [place] [address] [phone] Magnesium 2.0 mg/dL 1.8 - 2.4 Comprehensive Chem Profile 10/23/2020 [facility] Tool Drawing Checker: Dr Nomi Aragon [place] [id number] [phone] Glucose 110 mg/dL High 74 - 99 15 BUN 22 mg/dL High 7 - 18 Creatinine 0.8 mg/dL 0.6 - 1.3 Sodium 142 mEq/L 136 - 145 Potassium 4.2 mEq/L 3.5 - 5.1 Chloride 104 mEq/L 98 - 107 Carbon Dioxide 29 mEq/L 21 - 32 Calcium 9.2 mg/dL 8.5 - 10.1 Alk. Phosphatase 89 mg/dL 46 - 116 Total Bilirubin 0.5 mg/dL 0.2 - 1.0 Ast (Sgot) 23 U/L 15 - 37 Alt (SGPT) 29 U/L 12 - 78 Albumin 4.1 g/dL 3.4 - 5.0 Total Protein 7.3 g/dL 6.4 - 8.2 A/G Ratio 1.28 CALC 1.00 - 1.90 GFR >= 60 mL/min >60 GFR >= 60 mL/min >60 16 Lipid Profile 10/23/2020 [facility] , Tool Drawing Checker: [place] [address] [phone] Cholesterol 242 mg/dL High 131 - 200 Triglycerides 76 mg/dL 30 - 150 HDL Cholesterol 67 mg/dL High 35 - 60 LDL (Calculated) 160 CALC High 50 - 159 Laboratory test finding 10/23/2020 [facility], Tool Drawing Checker: Dr Nomi Aragon [place] [id number] [phone] Thyroid Stimulating Hormone 0.51 uIU/mL 0.3 6 - 3.74 Ua Dipstick Only 10/23/2020 [facility] , Tool Drawing Checker: Dr Nomi Aragon [place] [id number] [phone] Urine Color YELLOW Yellow Urine Appearance CLEAR Clear Urine PH 7.0 units 5.0 - 9.0 Urine Specific Laurel 1.015 1.005 - 1.030 Urine Leukocytes NEGATIVE Negative Urine Blood NEGATIVE Negative Urine Protein NEGATIVE Negative -Trace Urine Glucose NEGATIVE mg/dL Negative Urine Nitrite NEGATIVE Negative Urine Ketone NEGATIVE mg/dL Negative Urine Bilirubin NEGATIVE Negative Urine Urobilinogen 0.2 mg/dL 0.2 - 1.0 1 100-125 mg/dL PRE-DIABET ES/FASTING >126 mg/dL DIABETES/FASTING 2 CHRONIC KIDNEY DISEASE STAGI NG PER NKF STAGE I & II GFR >= 60 NORMAL TO MILDLY DECREASED STAGE III GFR 30-59 MODERATELY DECREASED STAGE IV GFR 15-29 SEVERELY DECREASED STAGE V GFR <15 VERY LITTLE GFR LEFT ESRD GFR <15 ON AWARD MACHINE OPERATOR 3 THE [place] 125 ASSAY IS PERFORME D ON THE Mall StreetAUR BY CHEMILUMINESCENCE AND SHOULD NOT BE COMPARED INTERCHANGEABLY WITH OTHER METHODS. IT SHOULD NOT BE USED ALONE A SCREENING TEST OR DIAGNOSIS FOR THE PRESENCE OR ABSENCE OF MALIGNANT DISEASE. PREDICTIONS OF DISEASE RECURRENCE SHOULD NOT BE BASED SOLELY ON VALUES OBTAINED FROM SERIAL PATIENT SERUM VALUES. 4 [employer] Electroche miluminescence Immunoassay (ECLIA) . Values obtained with different assay methods or kits cannot be used interchangeably. Results cannot be interpreted as absolute evidence of the presence or absence of malignant disease. Performed at: [address] [id number] Tool Drawing Checker: Brian Zimmerman MD, Phone: [phone] FULL REPORT IN LAB NOTES (eC W and [place]). NEGATIVE FOR STREP PYOGENES (GROUP A) 6 This respiratory PCR panel d etects Influenza A H1, H3 and 2009 H1 viruses, Influenza B virus, Resp iratory Syncytial Virus, Human metapneumovirus, Parainfluenza virus 1, 2, 3 and 4, Adenovirus, Rhinovirus/Enterovirus, Coronavirus HKU1, NL63, OC43, 229E and SARS-CoV-2 (COVID 19), Bordetella pertussis, Bordetella parapertussis, Mycoplasma pneumoniae and Chlamydia pneumoniae. POSITIVE by MULTIPLEXED NUCLEIC ACID PCR SARS-CoV-2 (COVID 19) NEGATIVE - SARS-CoV-2 (COVID19) ORGANISM 1: PARAINFLUENZA 3 (PIV3) Parainfluenza 3 (PIV 3) is usually seen in children under 6 months old. Outbreaks have been seen in intensive care units and epidemics are most common in the spring and summer. Symptoms of PIV 3 usually include bronchiolitis, bronchitis, and pneumonia. ORGANISM 1: PARAINFLUENZA 3 (PIV3) 7 SPECIMEN TO BE RECOLLECTED D UE TO HEMOLYSIS. LAB ASSIST at 1017 SPECIMEN TO BE RECOLLECTED DUE TO HEMOLYSIS. @Previously received by ELAINE on 11/05/20 at 0948. @Unreceived by ELAINE on 11/05/20 at 1017. 8 SPECIMEN TO BE RECOLLECTED D UE TO HEMOLYSIS. LAB ASSIST at 1017 SPECIMEN TO BE RECOLLECTED DUE TO HEMOLYSIS. @Previously received by ADRIANA on 11/05/20 at 0948. @Unreceived by TIM on 11/05/20 at 1017. 9 SPECIMEN TO BE RECOLLECTED D UE TO HEMOLYSIS. LAB ASSIST at 1017 SPECIMEN TO BE RECOLLECTED DUE TO HEMOLYSIS. @Previously received by ADRIANA on 11/05/20 at 0948. @Unreceived by TIM on 11/05/20 at 1017. 10 SPECIMEN TO BE RECOLLECTED D UE TO HEMOLYSIS. LAB ASSIST at 1017 SPECIMEN TO BE RECOLLECTED DUE TO HEMOLYSIS. @Previously received by ADRIANA on 11/05/20 at 0948. @Unreceived by TIM on 11/05/20 at 1017. 11 Units are mL/min/1.73 m2 Chronic Kidney Disease Staging per NKF: Stage I & II GFR >=60 Normal to Mildly Decreased Stage III GFR 30-59 Moderately Decreased Stage IV GFR 15-29 Severely Decreased Stage V GFR <15 Very Little GFR Left ESRD GFR <15 on AWARD MACHINE OPERATOR 12 DIAGNOSIS CRITERIA MMB ng/ml Relative Index (RI) NON-AMI < or = 5 N/A MONTERO ZONE > 5 < or = 4 AMI > 5 > 4 13 Troponin I Reference Interva l for [employer] LOCI: 99th Percentile= 0.00-0.045 ng/ml Risk Stratification: <= 0.10 ng/ml Decreased Risk for Adverse Clinical Events. 0.10-1.50 ng/ml Increased Risk for Adv erse Clinical Events. Evaluation of additional criterion and/or repeat testing in 2-6 hours is suggested to rule out myocardial damage. >= 1.50 ng/ml Indicative of Myocardial Injury. 14 Lab Result Notes: Pre-Diabetes 5.7 - 6.4 % Diabetes = or > 6.5% 15 100-125 mg/dL PRE-DIABET ES/FASTING >126 mg/dL DIABETES/FASTING 16 CHRONIC KIDNEY DISEASE STAGI NG PER NKF STAGE I & II GFR >= 60 NORMAL TO MILDLY DECREASED STAGE III GFR 30-59 MODERATELY DECREASED STAGE IV GFR 15-29 SEVERELY DECREASED STAGE V GFR <15 VERY LITTLE GFR LEFT ESRD GFR <15 ON AWARD MACHINE OPERATOR Procedures Date Code Description Status 01/23/2021 40298 Office/Outpatient Established Mo d MDM 30-39 Min Completed 10/23/2020 72577 Office/Outpatient New Moderate M DM 45-59 Minutes Completed 10/23/2020 24660 EKG/Interpretation & Report Comp leted 01/27/2019 [id number] Bone Mineral Density Test Comple Digital Fuel Description No Information Available Encounters Type Date Location Provider Dx Diagnosis Office Visit 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 01/23/2021 R73.09 Other abnormal glucose Tamara Keating M.D. 01/23/2021 I49.3 Ventricular premature depolariza tion Tamara Keating M.D. 01/23/2021 Z85.3 Personal history of malignant ne oplasm of breast Tamara Keating M.D. 01/23/2021 L50.0 Allergic urticaria Tamara hernández M.D. 01/23/2021 N83.299 Other ovarian cyst, unspecified side Tamara Keating M.D. 01/23/2021 R13.10 Dysphagia, unspecified Tamara Keating M.D. 01/23/2021 Z15.89 Genetic susceptibility to other disease Tamara Keating M.D. 01/23/2021 H04.123 Dry eye syndrome of bilateral la crimal glands Tamara Keating M.D. 01/23/2021 E03.9 Hypothyroidism, unspecified Monica Keating M.D. 01/23/2021 R01.1 Cardiac murmur, unspecified Monica Keating M.D. 01/23/2021 Z23 Encounter for immunization Tamara Keating M.D. 01/23/2021 H61.23 Impacted cerumen, bilateral Monica Keating M.D. 01/21/2021 E78.00 Pure hypercholesterolemia, unspe cified Tamara Keating M.D. 01/21/2021 E78.00 Pure hypercholesterolemia, unspe cified Lab Schedule 10/23/2020 Z85.3 Personal history of malignant ne oplasm of breast Tamara Keating M.D. 10/23/2020 Z15.89 Genetic susceptibility to other disease Tamara Keating M.D. 10/23/2020 I10 Essential (primary) hypertension Tamara Keating M.D. 10/23/2020 I49.3 Ventricular premature depolariza tion Tamara Keating M.D. 10/23/2020 R01.1 Cardiac murmur, unspecified Monica Keating M.D. 10/23/2020 L23.9 Allergic contact dermatitis, uns pecified cause Tamara Keating M.D. 10/23/2020 N83.299 Other ovarian cyst, unspecified side Tamara Keating M.D. 10/23/2020 R73.09 Other abnormal glucose Tamara Keating M.D. 10/23/2020 E78.00 Pure hypercholesterolemia, unspe cified Tamara Keating M.D. 10/23/2020 R13.10 Dysphagia, unspecified Tamara Keating M.D. 10/23/2020 E03.9 Hypothyroidism, unspecified Monica Keating M.D. 10/23/2020 Z13.89 Encounter for screening for othe r disorder Tamara Keating M.D. 10/23/2020 M19.90 Unspecified osteoarthritis, unsp ecified site Tamara Keating M.D. Plan of Treatment Future Appointment(s):* 05/27/2021 7:40 am - Lab Schedule at [facility] * 05/29/2021 8:30 am - Tamara Keating M.D. at [facility] * 05/29/2021 8:00 am - [facility] 01/23/2021 - Tamara Keating M.D.* I10 Essential (primary) hypertension * R73.09 Other abnormal glucose * I49.3 Ventricular premature depolarization * Z85.3 Personal history of malignant neoplasm of breast * L50.0 Allergic urticaria * N83.299 Other ovarian cyst, unspecified side * R13.10 Dysphagia, unspecified * Z15.89 Genetic susceptibility to other disease * H04.123 Dry eye syndrome of bilateral lacrimal glands * E03.9 Hypothyroidism, unspecified * R01.1 Cardiac murmur, unspecified * Z23 Encounter for immunization * H61.23 Impacted cerumen, bilateral * All * New Medication:* Xyzal Allergy 24HR 5 mg - 1 by mouth every day and 1 po qd prn * Comments:* 13. Health Maintenance. She is getting flu shot and will get a COVID booster when Moderna is approved. 2019 DEXA reviewed and essentially normal, consider repeat in 5 years. She is about to have her EGD/Colonoscopy Functional Status Description No Information Available Mental Status Description No Information Available Referrals Refer to Reason for Referral Status Appt Date [facility] CONSULT FOR RT OVARIAN C YST Created [address] [place] [address] [phone] Alexy Tipton MD [facility] CONSULT FOR ALLERGIC DERMATITIS Pat ient Notified 12/06/2020 [facility] [address],[place] [address] [phone] Jalen Zamora MD CONSULT FOR SCREENING COLONOSCOPY Patien t Notified 12/19/2020 [address] [place] [address] [phone] Christopher Lora MD CARDIAC ECHO WITH DOPPLER DX : MURMUR NO PRIOR AUTH REQ PER [employer] Sent 01/16/2021 [facility] [address], [place] [address] [phone]
--- OUTSIDE RECORDS SUMMARY | 2021-02-17 07:32 | CCD ---
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 12/04/19 21 Losartan Potassium 50mg Tablets 1 by mouth every day 90tabs Tamara Keating M.D. 10/24/19 21 Synthroid 137mcg Tablets 1 by mouth every day Jose 90tabs Tamara Keating M.D. 10/24/19 21 Hydrochlorothiazide 12.5mg Tablets 1 by mouth every day 90tabs Tamara Keaitng M.D. 10/24/19 21 Klor-Con M10 10Meq Tablets [...] DR 1 by mouth twice a day 60caplibby Keating M.D. 11/30/19 21 - 12/03/2020 Fexofenadine HCL 180mg Tablets take one tablet by mouth every day 90tabs Jennifer Coker 10/23/2020 - 01/23/2021 Medications Administered in Office Medication SIG Qnty Indications Ordering Provider Date Covid-19 vaccine, Unspecified Inj ection Unknown 06/21/2020 Covid-19 vaccine, Unspecified Inj ection Unknown 05/21/2020 Immunizations CPT Code Status Date Vaccine Lot # [id number] Given 01/23/2021 Influenza Vaccin e Quadrivalent Preser/Antibiotic Free Im Use [id number] Vital Signs Date Vital Result Comment 01/23/2021 [...] Result H/L Range Note Lipid Profile 01/21/2021 [facility] Nail Expert: Dr Nomi Aragon [place] [id number] [phone] Cholesterol 237 mg/dL High 131 - 200 Triglycerides 93 mg/dL 30 - 150 HDL Cholesterol 62 mg/dL High 35 - 60 LDL (Calculated) 156 CALC 50 - 159 Basic Metabolic Panel 01/21/2021 [facility] Nail Expert: [place] [address] [phone] Glucose 99 mg/dL 74 - 99 1 [...] mL/min >60 2 Laboratory test finding 01/07/[address] [address] [phone] CA 125 3.8 U/ML Normal <30.2 3 Human Epididymis Protein 4 01/07/[address] [address] [phone] He4 45.3 pmol/L Normal 0.0-96.5 4 Liver Profile 11/05/2020 [facility] nter [address] [place] [address] [phone] Ast/Sgot 26 U/L Normal 7-37 Alt/SGPT 52 U/L Normal 12-78 Alkaline Phosphatase 81 U/L Normal 45-117 Bilirubin,Total 0.6 mg/dL Normal 0.2-1.0 Bilirubin,Direct < 0.1 mg/dL Normal 0.0-0.2 Total Protein 7.0 GM/DL Normal 6.4-8.2 Albumin 3.7 GM/DL Normal 3.2-5.2 Albumin/Globulin Ratio 1.1 Low 1.2-2.2 Ua W/ Reflex To Culture 11/05/[address] [address] [phone] Appearance, Urine RFX CLEAR Normal Clear Color, Urine RFX STRAW Normal Yellow PH,Urine RFX 6.0 units Normal 5.0-9.0 Specific [place] Ur Auto RFX 1.005 Normal 1.002-1.035 Protein, [...] Normal 0-1 Gats (Negative Strep Screen) 11/05/[address] [id number] [phone] Gats Culture (Neg Strep SCR) FULL REPORT IN L <SEE N OTE> Normal 5 Laboratory test finding 11/05/2020 [facility] [address] [place] [address] [phone] Platelet Estimate NORMAL Normal Normal Differential 11/05/2020 [facility] nter [address] [place] [address] [id number] [phone] Neutrophils 56 % Normal 28-66 Lymphocytes 27 % Normal 16-44 Monocytes 8 % High 0-5 Eosinophils 1 % Normal 0-3 Basophils 1 % Normal 0-1 Atypical Lymph 7 % High 0-5 RBC Morphology NORMAL Normal CBC With Differential 11/05/[address] [id number] [phone] White Blood Count 14.8 10 High 4.0-10.0 [...] % Normal 0-0 Laboratory test finding 11/05/2020 [facility] [address] [place] [address] [phone] Gisela Strep A NEGATIVE Normal Negative Respiratory Panel 11/05/2020 [facility] nter [address] [place] [address] [phone] Respiratory Panel This respiratory <SEE NOTE> 6 Laboratory test finding 11/05/[address] [address] [phone] Amylase 17 U/L Low 25-115 7 Lipase 167 U/L Normal 73-393 8 Thyroid Stimulating Hormone 1.390 uIU/ML Normal 0.358-3.740 9 Free T4 1.41 ng/dL Normal 0.76-1.46 10 Basic Metabolic Profile 11/05/[address] [address] [phone] Glucose, Fasting 88 mg/dL Normal 70-100 Blood [...] mg/dL Low 8.8-10.2 Cardiac Marker Panel 11/05/2020 [facility] enter [address] [place] [address] [phone] CPK Creatine Phosphokinase 76 U/L Normal 26-19 2 CK-MB Value Mass < 1.0 NG/ML Normal <3.6 MB/CK Relative Index 1.32 Normal < Or =4 12 Troponin I < 0.02 NG/ML Normal < 0.10 13 Laboratory test finding 10/23/2020 [place] [address] [employer] [place], [place] [id number] [phone] Lipase 181 U/L Normal 73-393 Complete Blood Count 10/23/2020 [facility] Nail Expert: Dr Nomi Aragon [place], [place] [id number] [phone] WBC 7.1 x10*3/UL 4.1 - 10.9 RBC [...] 4.4 x10*3/UL 2.0 - 7.8 A1c 10/23/2020 [facility] Nail Expert: [place] [address] [phone] Hba1c 5.8 % High <5.7 14 Est Avg Glucose 120 mg/dL High 60 - 110 Laboratory test finding 10/23/2020 [facility] Nail Expert: [place] [address] [phone] Magnesium 2.0 mg/dL 1.8 - 2.4 Comprehensive Chem Profile 10/23/2020 [facility] Nail Expert: [place] [address] [phone] Glucose 110 mg/dL High 74 - 99 [...] 60 mL/min >60 16 Lipid Profile 10/23/2020 [facility] , Nail Expert: [place] [address] [phone] Cholesterol 242 mg/dL High 131 - 200 Triglycerides 76 mg/dL 30 - 150 HDL Cholesterol 67 mg/dL High 35 - 60 LDL (Calculated) 160 CALC High 50 - 159 Laboratory test finding 10/23/2020 [facility], Nail Expert: [place] [address] [phone] Thyroid Stimulating Hormone 0.51 uIU/mL 0.3 6 - 3.74 Ua Dipstick Only 10/23/2020 [facility] Nail Expert: [place] [address] [phone] Urine Color YELLOW Yellow Urine Appearance CLEAR Clear Urine PH 7.0 units 5.0 - 9.0 Urine Specific [place] 1.015 1.005 - 1.030 Urine Leukocytes NEGATIVE [...] LITTLE GFR LEFT ESRD GFR <15 ON [address] 3 THE CA 125 ASSAY IS PERFORME D ON THE [employer] BY CHEMILUMINESCENCE AND SHOULD NOT BE COMPARED [...] or absence of malignant disease. Performed at: [address] [id number] Nail Expert: Brian Zimmerman MD, Phone: [phone] FULL REPORT IN LAB NOTES (eC [...] ELAINE on 11/05/20 at 0948. @Unreceived by KWILLI on 11/05/20 at 1017. 9 SPECIMEN TO BE RECOLLECTED D UE TO HEMOLYSIS. LAB ASSIST at 1017 SPECIMEN TO BE RECOLLECTED DUE TO HEMOLYSIS. @Previously received by on 11/05/20 at 0948. @Unreceived by on 11/05/20 at 1017. 10 SPECIMEN TO BE RECOLLECTED D UE TO HEMOLYSIS. LAB ASSIST at 1017 SPECIMEN TO BE RECOLLECTED DUE TO HEMOLYSIS. @Previously received by VINITA on 11/05/20 at 0948. @Unreceived by on 11/05/20 at 1017. 11 Units are mL/min/1.73 m2 Chronic Kidney Disease Staging per NKF: Stage I & II GFR >=60 Normal to Mildly Decreased Stage III GFR 30-59 Moderately Decreased Stage IV GFR 15-29 Severely Decreased Stage V GFR <15 Very Little GFR Left ESRD GFR <15 on [address] 12 DIAGNOSIS CRITERIA MMB ng/ml Relative Index (RI) NON-AMI < or = 5 N/A MONTERO ZONE > 5 < or = 4 AMI > 5 > 4 13 Troponin I Reference Interva l for Siemens Brokaw LOCI: 99th Percentile= 0.00-0.045 ng/ml Risk Stratification: [...] LITTLE GFR LEFT ESRD GFR <15 ON [address] Procedures Date Code Description Status 10/23/2020 52911 Office/Outpatient New Moderate M DM 45-59 Minutes Completed 10/23/2020 01828 EKG/Interpretation & Report Comp leted 01/27/2019 973331582 Bone Mineral Density Test Comple Interventional Spine Description No Information Available Encounters Type Date Location Provider Dx Diagnosis Office Visit 10/23/2020 8:00a [facility], PLeanna Keating M.D. 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 01/23/2021 H61.23 Impacted cerumen, bilateral Monica Keating M.D. 01/23/2021 R01.1 Cardiac murmur, unspecified Monica Keating M.D. 01/21/2021 E78.00 Pure hypercholesterolemia, [...] Keating M.D. 10/23/2020 E78.00 Pure hypercholesterolemia, unspe cianabella Keating M.D. 10/23/2020 R13.10 Dysphagia, mariaelenaified Tamara Keating M.D. 10/23/2020 E03.9 Hypothyroidism, unspecified Monica Keating M.D. 10/23/2020 Z13.89 Encounter for screening for othe r disorder Tamara Keating M.D. 10/23/2020 M19.90 Unspecified osteoarthritis, unsp ecified site Tamara Keating M.D. Plan of Treatment Future Appointment(s):* 05/27/2021 7:40 am - [facility] Schedule [email or web address] * 05/29/2021 8:30 am - Tamara Keating M.D. at [facility] * 05/29/2021 8:00 am - Nurse #2 at [facility] 01/23/2021 - Tamara Keating M.D.* I10 [...] lacrimal glands * E03.9 Hypothyroidism, unspecified * H61.23 Impacted cerumen, bilateral * R01.1 Cardiac murmur, unspecified * All * New Medication:* Xyzal Allergy 24HR 5 mg - 1 by mouth every day and 1 po qd prn * Comments:* 13. Health Maintenance. She is getting flu shot and will get a COVID booster when Moderna is approved ____ 2019 reviewed and essentially normal, consider repeat in 5 years. She is about to have her EGD/Colonoscopy 02/23 Functional Status Description No Information Available Mental Status Description No Information Available Referrals Refer to Reason for Referral Status Appt Date [facility] CONSULT FOR RT OVARIAN C YST Created [address] [place] [address] [phone] Alexy Tipton MD WILDLIFE CONSERVATION PROFESSOR CONSULT FOR ALLERGIC DERMATITIS Pat ient Notified 12/06/2020 [facility] [address],[place] [address] [phone] Jalen Zamora MD CONSULT FOR SCREENING COLONOSCOPY Patien t Notified 12/19/2020 [address] [address] [phone] Christopher Lora MD CARDIAC ECHO WITH DOPPLER DX : MURMUR NO PRIOR AUTH REQ PER [employer] WEBSITE Sent 01/16/2021 [facility] [address], [place] [phone]
--- OUTSIDE RECORDS SUMMARY | 2021-02-17 07:32 | CCD | Continuity of Care Document ---
Author Author Marycruz SCHULZ Organization Unknown Address [address] [place] [address] Phone [phone] Care Team Providers Care Environmental Conservation Officer Name Role Phone Preston Barr MD AUT [phone] Tamara Keating MD AUT [phone] Problems Description No Information Available Social History Type Date Description Comments Sex Unknown Allergies, Adverse Reactions, Alerts Description No Information Available Medications Description No Information Available Immunizations Description No Information Available Vital Signs Description No Information Available Results Description No Information Available Procedures Description No Information Available Medical Devices Description No Information Available Encounters Description No Information Available Assessments Description No Information Available Plan of Treatment No Information Available Functional Status Description No Information Available Mental Status Description No Information Available Referrals Description No Information Available
--- OUTSIDE RECORDS SUMMARY | 2021-02-17 07:32 | CCD | Continuity of Care Document ---
Author Organization Unknown Address Unknown Phone Unavailable Care Team Providers Care New Business Clerk Name Role Phone Tamara Keating MD AUT [phone] Problems Active Problems Provider Date Essential hypertension [...] 12 years x1/2 ppd quit in 1987 Allergies, Adverse Reactions, Alerts Active Allergies Criticality Reaction | Severity Comments Date Heparin Unable to assess criticality causes her t o clot 10/23/2020 Medications Active Medications SIG Qnty Indications Ordering Provide r Date Omeprazole 40mg Capsules DR 1 by mouth [...] Ut) Capsules 1 by mouth every day 30Monster Cohen 10/23/2020 Fexofenadine HCL 180mg Tablets take one tablet by mouth every day 90tabs Jennifer Coker 10/23/2020 Calcium 600mg/d Tamara Keating M.D. 0 10/23/2020 History Medications Omeprazole 20mg Capsules DR 1 by mouth twice a day 60ingrid Keating M.D. 11/30/19 21 - 12/03/2020 Medications Administered in Office Medication SIG Qnty Indications Ordering Provider Date Covid-19 vaccine, Unspecified Inj ection Unknown 06/21/2020 Covid-19 vaccine, Unspecified Inj ection Unknown 05/21/2020 Immunizations Description No Information Available Vital Signs Date Vital Result Comment 10/23/2020 7:53am BP Systolic 124 mmHg BP Diastolic 72 mmHg Heart Rate 81 /min Height 62 inches 5'2" Weight 187.00 lb BMI (Body Mass Index) 34.2 kg/m2 Results Test Acquired Date Facility Test Result H/L Range Note Human Epididymis Protein 4 01/07/2021 [facility] [address] [place] [address] [phone] He4 45.3 pmol/L Normal 0.0-96.5 1 Laboratory test finding 01/07/2021 [facility] [address] [place] [address] [phone] CA 125 3.8 U/ML Normal <30.2 2 Liver Profile 11/05/2020 [facility] [address] [place] [address] [phone] Ast/Sgot 26 U/L Normal 7-37 Alt/SGPT 52 U/L Normal 12-78 Alkaline Phosphatase 81 U/L Normal 45-117 Bilirubin,Total 0.6 mg/dL Normal 0.2-1.0 Bilirubin,Direct < 0.1 mg/dL Normal 0.0-0.2 Total Protein 7.0 GM/DL Normal 6.4-8.2 Albumin 3.7 GM/DL Normal 3.2-5.2 Albumin/Globulin Ratio 1.1 Low 1.2-2.2 Ua W/ Reflex To Culture 11/05/[address] [address] [phone] Appearance, Urine RFX CLEAR Normal Clear Color, Urine RFX STRAW Normal Yellow PH,Urine RFX 6.0 units Normal 5.0-9.0 Specific [place] Ur Auto RFX 1.005 Normal 1.002-1.035 Protein, [...] Normal 0-1 Gats (Negative Strep Screen) 11/05/[address] [address] [phone] Gats Culture (Neg Strep SCR) FULL REPORT IN L <SEE N OTE> Normal 3 Laboratory test finding 11/05/2020 [facility] [address] [place] [address] [phone] Platelet Estimate NORMAL Normal Normal Differential 11/05/2020 [facility] [address] [place] [address] [phone] Neutrophils 56 % Normal 28-66 Lymphocytes 27 % Normal 16-44 Monocytes 8 % High 0-5 Eosinophils 1 % Normal 0-3 Basophils 1 % Normal 0-1 Atypical Lymph 7 % High 0-5 RBC Morphology NORMAL Normal CBC With Differential 11/05/[address] [address] [phone] White Blood Count 14.8 10 High 4.0-10.0 [...] % Normal 0-0 Laboratory test finding 11/05/[address] [address] [phone] Gisela Strep A NEGATIVE Normal Negative Respiratory Panel 11/05/2020 [facility] [address] [place] [address] [phone] Respiratory Panel This respiratory <SEE NOTE> 4 Laboratory test finding 11/05/[address] [address] [phone] Amylase 17 U/L Low 25-115 5 Lipase 167 U/L Normal 73-393 6 Thyroid Stimulating Hormone 1.390 uIU/ML Normal 0.358-3.740 7 Free T4 1.41 ng/dL Normal 0.76-1.46 8 Basic Metabolic Profile 11/05/[address] [address] [phone] Glucose, Fasting 88 mg/dL Normal 70-100 Blood Urea Nitrogen 24 mg/dL High 7-18 Creatinine For GFR 0.83 mg/dL Normal 0.55-1.30 Glomerular Filtration Rate > 60.0 Normal >45 9 Sodium Level 140 mEq/L Normal 136-145 Potassium Serum 4.0 mEq/L Normal 3.5-5.1 Chloride Level 105 mEq/L Normal 98-107 Carbon Dioxide Level 29 mEq/L Normal 21-32 Anion Gap 6 mEq/L Low 8-16 Calcium Level 8.5 mg/dL Low 8.8-10.2 Cardiac Marker Panel 11/05/2020 [facility] [address] [place] [address] [phone] CPK Creatine Phosphokinase 76 U/L Normal 26-19 2 CK-MB Value Mass < 1.0 NG/ML Normal <3.6 MB/CK Relative Index 1.32 Normal < Or =4 10 Troponin I < 0.02 NG/ML Normal < 0.10 11 Laboratory test finding 10/23/2020 [facility] [address] [place] [address] [phone] Lipase 181 U/L Normal 73-393 Complete Blood Count 10/23/2020 [facility] Manager Environmental Health: [place] [address] [phone] WBC 7.1 x10*3/UL 4.1 - 10.9 RBC [...] 4.4 x10*3/UL 2.0 - 7.8 A1c 10/23/2020 [facility] Manager Environmental Health: [place] [address] [phone] Hba1c 5.8 % High <5.7 12 Est Avg Glucose 120 mg/dL High 60 - 110 Laboratory test finding 10/23/2020 [facility], Manager Environmental Health: [place] [address] [phone] Magnesium 2.0 mg/dL 1.8 - 2.4 Comprehensive Chem Profile 10/23/2020 [facility], Manager Environmental Health: [place] [address] [phone] Glucose 110 mg/dL High 74 - 99 13 BUN 22 mg/dL High 7 - 18 [...] mL/min >60 GFR >= 60 mL/min >60 14 Lipid Profile 10/23/2020 [facility] , Manager Environmental Health: [place] [address] [phone] Cholesterol 242 mg/dL High 131 - 200 Triglycerides 76 mg/dL 30 - 150 HDL Cholesterol 67 mg/dL High 35 - 60 LDL (Calculated) 160 CALC High 50 - 159 Laboratory test finding 10/23/2020 [facility], Manager Environmental Health: [place] [address] [phone] Thyroid Stimulating Hormone 0.51 uIU/mL 0.3 6 - 3.74 Ua Dipstick Only 10/23/2020 [facility] , Manager Environmental Health: [place] [address] [phone] Urine Color YELLOW Yellow Urine Appearance CLEAR Clear Urine PH 7.0 units 5.0 - 9.0 Urine Specific [place] 1.015 1.005 - 1.030 Urine Leukocytes NEGATIVE Negative Urine Blood NEGATIVE Negative Urine Protein NEGATIVE Negative -Trace Urine Glucose NEGATIVE mg/dL Negative Urine Nitrite NEGATIVE Negative Urine Ketone NEGATIVE mg/dL Negative Urine Bilirubin NEGATIVE Negative Urine Urobilinogen 0.2 mg/dL 0.2 - 1.0 1 [employer] Electroche miluminescence Immunoassay (ECLIA) . Values obtained with different assay methods or kits cannot be used interchangeably. Results cannot be interpreted as absolute evidence of the presence or absence of malignant disease. Performed at: [address] [id number] 61 Manager Environmental Health: Brian Zimmerman MD, Phone: [phone] 2 THE CA 125 ASSAY IS PERFORME D ON THE [employer] BY CHEMILUMINESCENCE AND SHOULD NOT BE COMPARED INTERCHANGEABLY WITH OTHER METHODS. IT SHOULD NOT BE USED ALONE A SCREENING TEST OR DIAGNOSIS FOR THE PRESENCE OR ABSENCE OF MALIGNANT DISEASE. PREDICTIONS OF DISEASE RECURRENCE SHOULD NOT BE BASED SOLELY ON VALUES OBTAINED FROM SERIAL PATIENT SERUM VALUES. 3 FULL REPORT IN LAB NOTES (eC W and [place]). NEGATIVE FOR STREP PYOGENES (GROUP A) 4 This respiratory PCR panel d etects Influenza [...] and pneumonia. ORGANISM 1: PARAINFLUENZA 3 (PIV3) 5 SPECIMEN TO BE RECOLLECTED D UE TO HEMOLYSIS. LAB ASSIST at 1017 SPECIMEN TO BE RECOLLECTED DUE TO HEMOLYSIS. @Previously received by ELAINE on 11/05/20 at 0948. @Unreceived by ELAINE on 11/05/20 at 1017. 6 SPECIMEN TO BE RECOLLECTED D UE TO HEMOLYSIS. LAB ASSIST at 1017 SPECIMEN TO BE RECOLLECTED DUE TO HEMOLYSIS. @Previously received by ADRIANA on 11/05/20 at 0948. @Unreceived by TIM on 11/05/20 at 1017. 7 SPECIMEN TO BE RECOLLECTED D UE TO HEMOLYSIS. LAB ASSIST at 1017 SPECIMEN TO BE RECOLLECTED DUE TO HEMOLYSIS. @Previously received by ADRIANA on 11/05/20 at 0948. @Unreceived by CoursePeerVINITA on 11/05/20 at 1017. 8 SPECIMEN TO BE RECOLLECTED D UE TO HEMOLYSIS. LAB ASSIST at 1017 SPECIMEN TO BE RECOLLECTED DUE TO HEMOLYSIS. @Previously received by ADRIANA on 11/05/20 at 0948. @Unreceived by TIM on 11/05/20 at 1017. 9 Units are mL/min/1.73 m2 Chronic Kidney Disease Staging per NKF: Stage I & II GFR >=60 Normal to Mildly Decreased Stage III GFR 30-59 Moderately Decreased Stage IV GFR 15-29 Severely Decreased Stage V GFR <15 Very Little GFR Left ESRD GFR <15 on SPRING MACHINE OPERATOR 10 DIAGNOSIS CRITERIA MMB ng/ml Relative Index (RI) NON-AMI < or = 5 N/A MONTERO ZONE > 5 < or = 4 AMI > 5 > 4 11 Troponin I Reference Interva l for [facility] LOCI: 99th Percentile= 0.00-0.045 ng/ml Risk Stratification: <= 0.10 ng/ml Decreased Risk for Adverse Clinical Events. 0.10-1.50 ng/ml Increased Risk for Adv erse Clinical Events. Evaluation of additional criterion and/or repeat testing in 2-6 hours is suggested to rule out myocardial damage. >= 1.50 ng/ml Indicative of Myocardial Injury. 12 Lab Result Notes: Pre-Diabetes 5.7 - 6.4 % Diabetes = or > 6.5% 13 100-125 mg/dL PRE-DIABET ES/FASTING >126 mg/dL DIABETES/FASTING 14 CHRONIC KIDNEY DISEASE STAGI NG PER NKF STAGE I & II GFR >= 60 NORMAL TO MILDLY DECREASED STAGE III GFR 30-59 MODERATELY DECREASED STAGE IV GFR 15-29 SEVERELY DECREASED STAGE V GFR <15 VERY LITTLE GFR LEFT ESRD GFR <15 ON SPRING MACHINE OPERATOR Procedures Date Code Description Status 10/23/2020 86780 Office/Outpatient New Moderate M DM 45-59 Minutes Completed 10/23/2020 63267 EKG/Interpretation & Report Comp leted 01/27/2019 [id number] Bone Mineral Density Test Comple Lionsharp Voiceboard Description No Information Available Encounters Type Date Location Provider Dx Diagnosis Office Visit 10/23/2020 8:00a [facility] Marshal Keating M.D. Z85.3 Personal history of malignan [...] unspecified site Assessments Date Code Description Provider 10/23/2020 Z85.3 Personal history of malignant ne [...] Keating M.D. Plan of Treatment Future Appointment(s):* 01/21/2021 8:50 am - Lab Schedule at [facility] * 01/23/2021 8:30 am - Tamara Keating M.D. at [facility] 10/23/2020 - Tamara Keating M.D.* Z85.3 Personal history of malignant neoplasm of breast * Z15.89 Genetic susceptibility to other disease * I10 Essential (primary) hypertension * I49.3 Ventricular premature depolarization * R01.1 Cardiac murmur, unspecified * L23.9 Allergic contact dermatitis, unspecified cause * N83.299 Other ovarian cyst, unspecified side * R73.09 Other abnormal glucose * E78.00 Pure hypercholesterolemia, unspecified * R13.10 Dysphagia, unspecified * E03.9 Hypothyroidism, unspecified * Z13.89 Encounter for screening for other disorder * M19.90 Unspecified osteoarthritis, unspecified site * All * New Medication:* Losartan Potassium 50 mg - 1 by mouth every day * Synthroid 137 mcg - 1 by mouth every day Jose * Hydrochlorothiazide 12.5 mg - 1 by mouth every day * Klor-Con M10 10 Meq - 1 by mouth every day * Multi For Her 50+ - every day * Vitamin D3 Super Strength 50 mcg (2000 Ut) - 1 by mouth every day * Fexofenadine HCL 180 mg - take one tablet by mouth every day * Calcium - 600mg/d * Comments:* 13. Health Maintenance. Due for colonoscopy. Refer to Dr Zamora. Mammogram is not indicated as she has had bilateral mastectomy. Bone density reportedly normal in 2019, I'll try to get a copy. She believes she's up to date with vaccines. Her vaccine record is obtained from [facility] and shows she has had the COVID vaccine, Shingles, Pneumonia shots, but no evidence of a Tetanus, consider booster. Diet/exercise, calcium are reviewed. Functional Status Description No Information Available Mental Status Description No Information Available Referrals Refer to Reason for Referral Status Appt Date [facility] CONSULT FOR RT OVARIAN C YST Created [address] [place] [address] [phone] Alexy Titpon MD MEDICARE INTERVIEWER CONSULT FOR ALLERGIC DERMATITIS Pat ient Notified 12/06/2020 [facility] [address] [place] [address] [phone] Jalen Zamora MD CONSULT FOR SCREENING COLONOSCOPY Patien t Notified 12/19/2020 [address] [facility] [address] [phone] Christopher Lora MD CARDIAC ECHO WITH DOPPLER DX : MURMUR NO PRIOR AUTH REQ PER [facility] [employer] Sent 01/16/2021 [facility] [address], [place] [address] [phone]
--- OUTSIDE RECORDS SUMMARY | 2021-02-17 07:32 | CCD | Continuity of Care Document ---
Author Author Lab Schedule, [facility] Organization Unknown Address [address] [address] Phone Unavailable Care Team Providers Care Health Insurance Sales Agent Name Role Phone Tamara Keating MD [facility] [phone] Problems Active Problems Provider Date Essential hypertension [...] mouth every day 30caps Monster Coker 10/23/2020 Fexofenadine HCL 180mg Tablets take one tablet by mouth every day 90tabs Jennifer Coker 10/23/2020 Calcium 600mg/d Tamara Keating M.D. 0 10/23/2020 History Medications Omeprazole 20mg Capsules DR 1 by mouth twice a day 60caps Tamara Keating M.D. 11/30/19 21 - 12/03/2020 Medications [...] Result H/L Range Note Lipid Profile 01/21/2021 [facility] Vessel Liner: [place] [address] [phone] Cholesterol 237 mg/dL High 131 - 200 Triglycerides 93 mg/dL 30 - 150 HDL Cholesterol 62 mg/dL High 35 - 60 LDL (Calculated) 156 CALC 50 - 159 Basic Metabolic Panel 01/21/2021 [facility] Vessel Liner: Dr Nomi Aragon [place], [place] [address] [phone] Glucose 99 mg/dL 74 - 99 1 [...] mL/min >60 2 Laboratory test finding 01/07/2021 [place] 7[address]7537 [phone] CA 125 3.8 U/ML Normal <30.2 3 Human Epididymis Protein 4 01/07/[address] [address] [address] [phone] He4 45.3 pmol/L Normal 0.0-96.5 4 Liver Profile 11/05/2020 [facility] [address] [place] [address] [phone] Ast/Sgot 26 U/L Normal 7-37 Alt/SGPT 52 U/L Normal 12-78 Alkaline Phosphatase 81 U/L Normal 45-117 Bilirubin,Total 0.6 mg/dL Normal 0.2-1.0 Bilirubin,Direct < 0.1 mg/dL Normal 0.0-0.2 Total Protein 7.0 GM/DL Normal 6.4-8.2 Albumin 3.7 GM/DL Normal 3.2-5.2 Albumin/Globulin Ratio 1.1 Low 1.2-2.2 Ua W/ Reflex To Culture 11/05/[address] [address] [phone] Appearance, Urine RFX CLEAR Normal Clear Color, Urine RFX STRAW Normal Yellow PH,Urine RFX 6.0 units Normal 5.0-9.0 Specific [place] Ur Auto RFX 1.005 Normal 1.002-1.035 Protein, [...] Normal 0-1 Gats (Negative Strep Screen) 11/05/[address] [address] [phone] Gats Culture (Neg Strep SCR) FULL REPORT IN L <SEE N OTE> Normal 5 Laboratory test finding 11/05/[address] [address]13102 [phone] Platelet Estimate NORMAL Normal Normal Differential 11/05/2020 [facility] [address] [place] [address] [phone] Neutrophils 56 % Normal 28-66 Lymphocytes 27 % Normal 16-44 Monocytes 8 % High 0-5 Eosinophils 1 % Normal 0-3 Basophils 1 % Normal 0-1 Atypical Lymph 7 % High 0-5 RBC Morphology NORMAL Normal CBC With Differential 11/05/[address] [address] [phone] White Blood Count 14.8 10 High 4.0-10.0 [...] % Normal 0-0 Laboratory test finding 11/05/[address] [address]8826 [phone] Gisela Strep A NEGATIVE Normal Negative Respiratory Panel 11/05/2020 [facility] [address] [place] [address] [phone] Respiratory Panel This respiratory <SEE NOTE> 6 Laboratory test finding 11/05/[address] [address] [phone] Amylase 17 U/L Low 25-115 7 Lipase 167 U/L Normal 73-393 8 Thyroid Stimulating Hormone 1.390 uIU/ML Normal 0.358-3.740 9 Free T4 1.41 ng/dL Normal 0.76-1.46 10 Basic Metabolic Profile 11/05/[address] [address] [phone] Glucose, Fasting 88 mg/dL Normal 70-100 Blood [...] mg/dL Low 8.8-10.2 Cardiac Marker Panel 11/05/[address] [address] [phone] CPK Creatine Phosphokinase 76 U/L Normal 26-19 2 CK-MB Value Mass < 1.0 NG/ML Normal <3.6 MB/CK Relative Index 1.32 Normal < Or =4 12 Troponin I < 0.02 NG/ML Normal < 0.10 13 Laboratory test finding 10/23/[address] [address] [phone] Lipase 181 U/L Normal 73-393 Complete Blood Count 10/23/2020 [facility] Vessel Liner: [place] [address] [phone] WBC 7.1 x10*3/UL 4.1 - 10.9 RBC [...] 4.4 x10*3/UL 2.0 - 7.8 A1c 10/23/2020 [facility] , Vessel Liner: Dr Nomi Aragon [place], [place] [address] [phone] Hba1c 5.8 % High <5.7 14 Est Avg Glucose 120 mg/dL High 60 - 110 Laboratory test finding 10/23/2020 [facility], Vessel Liner: [place] [address] [phone] Magnesium 2.0 mg/dL 1.8 - 2.4 Comprehensive Chem Profile 10/23/2020 [facility], Vessel Liner: [place] [address] [phone] Glucose 110 mg/dL High 74 - 99 [...] 60 mL/min >60 16 Lipid Profile 10/23/2020 [facility] , Vessel Liner: Dr Nomi Aragon [place], [place] [address] [phone] Cholesterol 242 mg/dL High 131 - 200 Triglycerides 76 mg/dL 30 - 150 HDL Cholesterol 67 mg/dL High 35 - 60 LDL (Calculated) 160 CALC High 50 - 159 Laboratory test finding 10/23/2020 [facility], Vessel Liner: Dr Nomi Aragon [place], [place] [address] [phone] Thyroid Stimulating Hormone 0.51 uIU/mL 0.3 6 - 3.74 Ua Dipstick Only 10/23/2020 [facility] , Vessel Liner: Dr Nomi Aragon [place], [place] [address] [phone] Urine Color YELLOW Yellow Urine Appearance CLEAR Clear Urine PH 7.0 units 5.0 - 9.0 Urine Specific [place] 1.015 1.005 - 1.030 Urine Leukocytes NEGATIVE [...] LITTLE GFR LEFT ESRD GFR <15 ON SOFT TILE SETTER 3 THE CA 125 ASSAY IS PERFORME D ON THE [employer] BY CHEMILUMINESCENCE AND SHOULD NOT BE COMPARED [...] or absence of malignant disease. Performed at: [facility] [address] [id number] 61 Vessel Liner: Brian Zimmerman MD, Phone: [phone] FULL REPORT IN LAB NOTES (eC [...] RECOLLECTED DUE TO HEMOLYSIS. @Previously received by [email or web address] on 11/05/20 at 0948. @Unreceived by [email or web address] on 11/05/20 at 1017. 8 SPECIMEN TO BE RECOLLECTED D UE TO HEMOLYSIS. LAB ASSIST at 1017 SPECIMEN TO BE RECOLLECTED DUE TO HEMOLYSIS. @Previously received by KIT [email or web address] on 11/05/20 at 0948. @Unreceived by [email or web address] on 11/05/20 at 1017. 9 SPECIMEN TO BE RECOLLECTED D UE TO HEMOLYSIS. LAB ASSIST at 1017 SPECIMEN TO BE RECOLLECTED DUE TO HEMOLYSIS. @Previously received by [email or web address] on 11/05/20 at 0948. @Unreceived by [email or web address] on 11/05/20 at 1017. 10 SPECIMEN TO BE RECOLLECTED D UE TO HEMOLYSIS. LAB ASSIST at 1017 SPECIMEN TO BE RECOLLECTED DUE TO HEMOLYSIS. @Previously received by KIT digitalLinda on 11/05/20 at 0948. @Unreceived by ELAINE on 11/05/20 at 1017. 11 Units are mL/min/1.73 m2 Chronic Kidney Disease Staging per NKF: Stage I & II GFR >=60 Normal to Mildly Decreased Stage III GFR 30-59 Moderately Decreased Stage IV GFR 15-29 Severely Decreased Stage V GFR <15 Very Little GFR Left ESRD GFR <15 on SOFT TILE SETTER 12 DIAGNOSIS CRITERIA MMB ng/ml Relative Index (RI) NON-AMI < or = 5 N/A MONTERO ZONE > 5 < or = 4 AMI > 5 > 4 13 Troponin I Reference Interva l for [place] LOCI: 99th Percentile= 0.00-0.045 ng/ml Risk Stratification: [...] LITTLE GFR LEFT ESRD GFR <15 ON SOFT TILE SETTER Procedures Date Code Description Status 10/23/2020 21208 Office/Outpatient New Moderate M DM 45-59 Minutes Completed 10/23/2020 65585 EKG/Interpretation & Report Comp leted 01/27/2019 [id number] Bone Mineral Density Test Comple Ini3 Digital Description No Information Available Encounters Type Date Location Provider Dx Diagnosis Office Visit 10/23/2020 8:00a [facility] P[facility] Keating M.D. Z85.3 Personal history of [...] cified Tamara Keating M.D. 10/23/2020 R13.10 Dysphagia, mariaelenaified Tamara Keating M.D. 10/23/2020 E03.9 Hypothyroidism, unspecified Monica Keating M.D. 10/23/2020 Z13.89 Encounter for screening for othe r disorder Tamara Keating M.D. 10/23/2020 M19.90 Unspecified osteoarthritis, unsp ecified site Tamara Keating M.D. Plan of Treatment Future Appointment(s):* 01/23/2021 8:30 am - [facility] 10/23/2020 - Tamara Keating M.D.* Z85.3 [...] vaccines. Her vaccine record is obtained from [facility] and shows she has had the COVID vaccine, Shingles, Pneumonia shots, but no evidence of a Tetanus, consider booster. Diet/exercise, calcium are reviewed. Functional Status Description No Information Available Mental Status Description No Information Available Referrals Refer to Reason for Referral Status Appt Date [facility] CONSULT FOR RT OVARIAN C YST Created [address] [place] [address] [phone] Alexy Tipton MD BUSINESS TECHNOLOGY ANALYST CONSULT FOR ALLERGIC DERMATITIS Pat ient Notified 12/06/2020 [facility] [address],[place] [address] [phone] Jalen Zamora MD CONSULT FOR SCREENING COLONOSCOPY Patien t Notified 12/19/2020 [address] [facility] [address] [phone] Christopher Lora MD CARDIAC ECHO WITH DOPPLER DX : MURMUR NO PRIOR AUTH REQ PER [employer] Sent 01/16/2021 [facility] [address], [facility] [place] [phone]
--- OUTSIDE RECORDS SUMMARY | 2021-02-17 07:32 | CCD | Continuity of Care Document ---
Author Author Marycruz ZAMORA M.D. Organization Unknown Address [address] [place] [address] Phone [phone] Care Team Providers Care Quality Assurance Analyst Name Role Phone Tamara Keating M.D. AUTM [phone] Problems Active Problems Provider Date Screening for malignant neoplasm of colon Jalen montana M.D. Onset: 12/19/2020 Social History Type Date Description Comments Sex Unknown ETOH Use Drinks 3 Alcoholic Beverages Per Week Tobacco Use Start: Unknown End: Unknown Patient is a former smoker QUIT 1987 Allergies, Adverse Reactions, Alerts Active Allergies Criticality Reaction | Severity Comments Date Heparin Unable to assess criticality 12/19/2020 Medications Active Medications SIG Qnty Indications Ordering Provide r Date Gaviscon Extra Strength 160-105mg Chewtabs 1 tab by mouth four times a day before meals,and at bedtime 360u nits Jalen Zamora M.D. 12/19/2020 Sutab [id number] Tablets as directed 1box Jalen Zamora M.D. 12/19/2020 Losartan Potassium 50mg Tablets Tamara Keating M.D. Levothyroxine Sodium 137mcg Tablets Tamara Keating M.D. Potassium Chloride Genevieve ER 10Meq Tablets ER Tamara Keating M.D. Hydrochlorothiazide 12.5mg Tablets Tamara Keating M.D. Levocetirizine Dihydrochloride 5mg Tablets Alexy Tipton Omeprazole 40mg Capsules Tamara Muro M.D. Immunizations Description No Information Available Vital Signs Date Vital Result Comment 12/19/2020 1:27pm Height 62 inches 5'2" Weight 187.00 lb BP Systolic 134 mmHg BP Diastolic 78 mmHg Heart Rate 68 /min BMI (Body Mass Index) 34.2 kg/m2 Weight 84.823 kg Body Temperature 93.9 F Results Description No Information Available Procedures Description No Information Available Medical Devices Description No Information Available Encounters Description No Information Available Assessments Date Code Description Provider 12/19/2020 Z12.11 Screening for malignant neoplasm of colon Jalen Zamora M.D. 12/19/2020 K21.9 Gastroesophageal reflux disease Jalen Zamora M.D. Plan of Treatment Future Appointment(s):* 02/17/2021 9:15 am - Jalen Zamora M.D. at Main Office 12/19/2020 - Jalen Zamora M.D.* Z12.11 Screening for malignant neoplasm of colon* Comments:* 70 yo wf who presents for a screening colonoscopy/egd for heartburn. Last scope was in 2010. No c/o abdominal pain, weight loss, change in bowel habits, or rectal bleeding. No family h/o colon cancer. No h/o chest pain, or sob. Plan:1.Schedule patient for a colonoscopy + egd.2.Informed consent given to the patient.3.Pt. advised to stop aspirin,plavix, and anticoagulants at least 3 to 7 days prior to the procedure. * K21.9 Gastroesophageal reflux disease* Comments:* As above. Functional Status Description No Information Available Mental Status Description No Information Available Referrals Description No Information Available
--- OUTSIDE RECORDS SUMMARY | 2021-02-17 07:32 | CCD ---
Continuity of Care Document (CCD) Created on: 01/21/2021 Marycruz Ramirez External Reference #: [id number] : [id number] Sex: Female Author Author Lab Schedule, Marycruz Organization Unknown Address [address] [address] Phone Unavailable Care Team Providers Care Director Erp Name Role Phone Tamara Keating [facility] [phone] Problems Active Problems Provider Date Essential hypertension [...] Date Facility Test Result H/L Range Note Laboratory test finding 01/07/2021 [facility] [address] [place] [address] [phone] CA 125 3.8 U/ML Normal <30.2 1 Human Epididymis Protein 4 01/07/2021 [facility] Center [address] [place] [address] [phone] He4 45.3 pmol/L Normal 0.0-96.5 2 Liver Profile 11/05/2020 [facility] [address] [place] [address] [phone] Ast/Sgot 26 U/L Normal 7-37 Alt/SGPT 52 U/L Normal 12-78 Alkaline Phosphatase 81 U/L Normal 45-117 Bilirubin,Total 0.6 mg/dL Normal 0.2-1.0 Bilirubin,Direct < 0.1 mg/dL Normal 0.0-0.2 Total Protein 7.0 GM/DL Normal 6.4-8.2 Albumin 3.7 GM/DL Normal 3.2-5.2 Albumin/Globulin Ratio 1.1 Low 1.2-2.2 Ua W/ Reflex To Culture 11/05/[address] [address] [phone] Appearance, Urine RFX CLEAR Normal Clear Color, Urine RFX STRAW Normal Yellow PH,Urine RFX 6.0 units Normal 5.0-9.0 Specific [place] Ur Auto RFX 1.005 Normal 1.002-1.035 Protein, [...] Normal 0-1 Gats (Negative Strep Screen) 11/05/[address] [address] [phone] Gats Culture (Neg Strep SCR) FULL REPORT IN L <SEE N OTE> Normal 3 Laboratory test finding 11/05/2020 [facility] [address] [place] [address] [phone] Platelet Estimate NORMAL Normal Normal Differential 11/05/2020 [facility] [address] [place] [address] [phone] Neutrophils 56 % Normal 28-66 Lymphocytes 27 % Normal 16-44 Monocytes 8 % High 0-5 Eosinophils 1 % Normal 0-3 Basophils 1 % Normal 0-1 Atypical Lymph 7 % High 0-5 RBC Morphology NORMAL Normal CBC With Differential 11/05/[address] [address] [phone] White Blood Count 14.8 10 High 4.0-10.0 [...] % Normal 0-0 Laboratory test finding 11/05/[address] [address] [phone] Gisela Strep A NEGATIVE Normal Negative Respiratory Panel 11/05/2020 [facility] [address] [place] [address] [phone] Respiratory Panel This respiratory <SEE NOTE> 4 Laboratory test finding 11/05/[address] [address] [phone] Amylase 17 U/L Low 25-115 5 Lipase 167 U/L Normal 73-393 6 Thyroid Stimulating Hormone 1.390 uIU/ML Normal 0.358-3.740 7 Free T4 1.41 ng/dL Normal 0.76-1.46 8 Basic Metabolic Profile 11/05/[address] [address] [phone] Glucose, Fasting 88 mg/dL Normal 70-100 Blood [...] mg/dL Low 8.8-10.2 Cardiac Marker Panel 11/05/2020 [facility] [address] [place] [address] [phone] CPK Creatine Phosphokinase 76 U/L Normal 26-19 2 CK-MB Value Mass < 1.0 NG/ML Normal <3.6 MB/CK Relative Index 1.32 Normal < Or =4 10 Troponin I < 0.02 NG/ML Normal < 0.10 11 Laboratory test finding 10/23/2020 [facility] [address] [place] [address] [phone] Lipase 181 U/L Normal 73-393 Complete Blood Count 10/23/2020 [facility] Pad Machine Operator: [place] [address] [phone] WBC 7.1 x10*3/UL 4.1 - 10.9 RBC [...] 4.4 x10*3/UL 2.0 - 7.8 A1c 10/23/2020 [facility] Pad Machine Operator: [place] [address] [phone] Hba1c 5.8 % High <5.7 12 Est Avg Glucose 120 mg/dL High 60 - 110 Laboratory test finding 10/23/2020 [facility] Pad Machine Operator: [place] [address] [phone] Magnesium 2.0 mg/dL 1.8 - 2.4 Comprehensive Chem Profile 10/23/2020 [facility] Pad Machine Operator: [place] [address] [phone] Glucose 110 mg/dL High 74 - 99 [...] 60 mL/min >60 14 Lipid Profile 10/23/2020 [facility] Pad Machine Operator: Dr Nomi [place]agon [place] [id number] [phone] Cholesterol 242 mg/dL High 131 - 200 Triglycerides 76 mg/dL 30 - 150 HDL Cholesterol 67 mg/dL High 35 - 60 LDL (Calculated) 160 CALC High 50 - 159 Laboratory test finding 10/23/2020 [facility] Pad Machine Operator: [place] [address] [phone] Thyroid Stimulating Hormone 0.51 uIU/mL 0.3 6 - 3.74 Ua Dipstick Only 10/23/2020 [facility] Pad Machine Operator: [place] [address] [phone] Urine Color YELLOW Yellow Urine Appearance CLEAR Clear Urine PH 7.0 units 5.0 - 9.0 Urine Specific [place] 1.015 1.005 - 1.030 Urine Leukocytes NEGATIVE Negative Urine Blood NEGATIVE Negative Urine Protein NEGATIVE Negative -Trace Urine Glucose NEGATIVE mg/dL Negative Urine Nitrite NEGATIVE Negative Urine Ketone NEGATIVE mg/dL Negative Urine Bilirubin NEGATIVE Negative Urine Urobilinogen 0.2 mg/dL 0.2 - 1.0 1 THE CA 125 ASSAY IS PERFORME D ON THE [employer] BY CHEMILUMINESCENCE AND SHOULD NOT BE COMPARED INTERCHANGEABLY WITH OTHER METHODS. IT SHOULD NOT BE USED ALONE A SCREENING TEST OR DIAGNOSIS FOR THE PRESENCE OR ABSENCE OF MALIGNANT DISEASE. PREDICTIONS OF DISEASE RECURRENCE SHOULD NOT BE BASED SOLELY ON VALUES OBTAINED FROM SERIAL PATIENT SERUM VALUES. 2 [employer] Electroche miluminescence Immunoassay (ECLIA) . Values obtained with different assay methods or kits cannot be used interchangeably. Results cannot be interpreted as absolute evidence of the presence or absence of malignant disease. Performed at: [address] [id number] Pad Machine Operator: Brian Zimmerman MD, Phone: [phone] FULL REPORT IN LAB NOTES (eC [...] ELAINE on 11/05/20 at 0948. @Unreceived by [employer] on 11/05/20 at 1017. 6 SPECIMEN TO BE RECOLLECTED D UE TO HEMOLYSIS. LAB ASSIST at 1017 SPECIMEN TO BE RECOLLECTED DUE TO HEMOLYSIS. @Previously received by [facility] on 11/05/20 at 0948. @Unreceived by [employer] on 11/05/20 at 1017. 7 SPECIMEN TO BE RECOLLECTED D UE TO HEMOLYSIS. LAB ASSIST at 1017 SPECIMEN TO BE RECOLLECTED DUE TO HEMOLYSIS. @Previously received by [facility] on 11/05/20 at 0948. @Unreceived by [facility] on 11/05/20 at 1017. 8 SPECIMEN TO BE RECOLLECTED D UE TO HEMOLYSIS. LAB ASSIST at 1017 SPECIMEN TO BE RECOLLECTED DUE TO HEMOLYSIS. @Previously received by [facility] on 11/05/20 at 0948. @Unreceived by [facility] on 11/05/20 at 1017. 9 Units are mL/min/1.73 m2 Chronic Kidney Disease Staging per NKF: Stage I & II GFR >=60 Normal to Mildly Decreased Stage III GFR 30-59 Moderately Decreased Stage IV GFR 15-29 Severely Decreased Stage V GFR <15 Very Little GFR Left ESRD GFR <15 on FILE MACHINE OPERATOR 10 DIAGNOSIS CRITERIA MMB ng/ml Relative Index (RI) NON-AMI < or = 5 N/A MONTERO ZONE > 5 < or = 4 AMI > 5 > 4 11 Troponin I Reference Interva l for Siemens [id number] LOCI: 99th Percentile= 0.00-0.045 ng/ml Risk Stratification: [...] LITTLE GFR LEFT ESRD GFR <15 ON FILE MACHINE OPERATOR Procedures Date Code Description Status 10/23/2020 07247 Office/Outpatient New Moderate M DM 45-59 Minutes Completed 10/23/2020 22549 EKG/Interpretation & Report Comp leted 01/27/2019 [id number] Bone Mineral Density Test Comple [facility] Description No Information Available Encounters Type Date Location Provider Dx Diagnosis Office Visit 10/23/2020 8:00a [facility] Marshal Keating M.D. Z85.3 Personal [...] 8:30 am - Tamara Keating M.D. at [facility] 10/23/2020 - Tamara Keating M.D.* Z85.3 [...] vaccines. Her vaccine record is obtained from [facility] and shows she has had the COVID vaccine, Shingles, Pneumonia shots, but no evidence of a Tetanus, consider booster. Diet/exercise, calcium are reviewed. Functional Status Description No Information Available Mental Status Description No Information Available Referrals Refer to Reason for Referral Status Appt Date [facility] CONSULT FOR RT OVARIAN C YST Created [address] [place] [address] [phone] Alexy Tipton MD FINANCIAL COACH CONSULT FOR ALLERGIC DERMATITIS Pat ient Notified 12/06/2020 [facility] [address] [address],[place] [address] [phone] Jalen Zamora MD CONSULT FOR SCREENING COLONOSCOPY Patien t Notified 12/19/2020 [address] [facility] [address] [phone] Christopher Lora MD CARDIAC ECHO WITH DOPPLER DX : MURMUR NO PRIOR AUTH REQ PER [employer] Sent 01/16/2021 [facility] [address], [place] [address] [phone]
--- OUTSIDE RECORDS SUMMARY | 2021-02-17 07:32 | CCD | Continuity of Care Document ---
Author Author Marycruz Keating M.D. Organization Unknown Address [address] [place] [address] Phone [phone] Care Team Providers Care Van Owner Operator Name Role Phone Tamara Keating MD [facility] [phone] Problems Active Problems Provider Date Essential hypertension [...] criticality causes her t o clot 10/23/2020 Doxycycline Unable to assess criticality Nausea 02/11/2021 Medications Active Medications SIG Qnty Indications Ordering Provide r Date Xyzal Allergy 24HR 5mg Tablets 1 by mouth every day and 1 po qd prn rat trapper Jennifer Coker 01/23/[address] [...] CPT Code Status Date Vaccine Lot # [id number] Given 01/23/2021 Influenza Vaccin e Quadrivalent Preser/Antibiotic Free Im Use [id number] Vital Signs Date Vital Result Comment 02/11/2021 7:56am BP Systolic 136 mmHg LT Arm BP Diastolic 80 mmHg LT Arm Heart Rate 64 /min Height 62 inches 5'2" Weight 188.00 lb O2 Saturation Level with Exercise 97 % RM Air BMI (Body Mass Index) 34.4 kg/m2 01/23/2021 8:22am BP Systolic 126 mmHg LT Arm BP Diastolic 86 mmHg LT Arm Heart Rate 64 /min Height 62 inches 5'2" Weight 186.50 lb BMI (Body Mass Index) 34.1 kg/m2 Results Test Acquired Date Facility Test Result H/L Range Note Coronavirus 2019 Nasopharygeal 02/12/[address] [address] [phone] Coronavirus 2019 Nasopharygeal ASSAY INFORMATIO <SEE N OTE> 1 Basic Metabolic Panel 01/21/2021 [facility] Construction Controller: Dr Nomi Aragon [place] [id number] [phone] Glucose 99 mg/dL 74 - 99 2 BUN 18 mg/dL 7 - 18 Creatinine 0.9 mg/dL 0.6 - 1.3 Sodium 143 mEq/L 136 - 145 Potassium 4.0 mEq/L 3.5 - 5.1 Chloride 104 mEq/L 98 - 107 Carbon Dioxide 24 mEq/L 21 - 32 Calcium 9.5 mg/dL 8.5 - 10.1 GFR >= 60 mL/min >60 GFR >= 60 mL/min >60 3 Lipid Profile 01/21/2021 [facility] Construction Controller: Dr Nomi Aragon [place] [id number] [phone] Cholesterol 237 mg/dL High 131 - 200 Triglycerides 93 mg/dL 30 - 150 HDL Cholesterol 62 mg/dL High 35 - 60 LDL (Calculated) 156 CALC 50 - 159 Laboratory test finding 01/07/[address] [address] [phone] CA 125 3.8 U/ML Normal <30.2 4 Human Epididymis Protein 4 01/07/2021 [facility] ical Center [address] [place], [place] [address] [phone] He4 45.3 pmol/L Normal 0.0-96.5 5 Liver Profile 11/05/2020 [facility] nter [address] [place] [address] [phone] Ast/Sgot 26 U/L Normal 7-37 Alt/SGPT 52 U/L Normal 12-78 Alkaline Phosphatase 81 U/L Normal 45-117 Bilirubin,Total 0.6 mg/dL Normal 0.2-1.0 Bilirubin,Direct < 0.1 mg/dL Normal 0.0-0.2 Total Protein 7.0 GM/DL Normal 6.4-8.2 Albumin 3.7 GM/DL Normal 3.2-5.2 Albumin/Globulin Ratio 1.1 Low 1.2-2.2 Ua W/ Reflex To Culture 11/05/[address] [address] [phone] Appearance, Urine RFX CLEAR Normal Clear Color, Urine RFX STRAW Normal Yellow PH,Urine RFX 6.0 units Normal 5.0-9.0 Specific Captiva Ur Auto RFX 1.005 Normal 1.002-1.035 Protein, [...] Normal 0-1 Gats (Negative Strep Screen) 11/05/[address] [address] [phone] Gats Culture (Neg Strep SCR) FULL REPORT IN L <SEE N OTE> Normal 6 Laboratory test finding 11/05/2020 [facility] [address] [place] [address] [phone] Platelet Estimate NORMAL Normal Normal Differential 11/05/2020 [facility] nter [address] [place] [address] [phone] Neutrophils 56 % Normal 28-66 Lymphocytes 27 % Normal 16-44 Monocytes 8 % High 0-5 Eosinophils 1 % Normal 0-3 Basophils 1 % Normal 0-1 Atypical Lymph 7 % High 0-5 RBC Morphology NORMAL Normal CBC With Differential 11/05/[address] [address] [phone] White Blood Count 14.8 10 High 4.0-10.0 [...] % Normal 0-0 Laboratory test finding 11/05/[address] [address] [phone] Gisela Strep A NEGATIVE Normal Negative Respiratory Panel 11/05/2020 [facility] nter [address] [place] [address] [phone] Respiratory Panel This respiratory <SEE NOTE> 7 Laboratory test finding 11/05/[address] [address] [phone] Amylase 17 U/L Low 25-115 8 Lipase 167 U/L Normal 73-393 9 Thyroid Stimulating Hormone 1.390 uIU/ML Normal 0.358-3.740 10 Free T4 1.41 ng/dL Normal 0.76-1.46 11 Basic Metabolic Profile 11/05/[address] [address] [phone] Glucose, Fasting 88 mg/dL Normal 70-100 Blood Urea Nitrogen 24 mg/dL High 7-18 Creatinine For GFR 0.83 mg/dL Normal 0.55-1.30 Glomerular Filtration Rate > 60.0 Normal >45 1 2 Sodium Level 140 mEq/L Normal 136-145 Potassium Serum 4.0 mEq/L Normal 3.5-5.1 Chloride Level 105 mEq/L Normal 98-107 Carbon Dioxide Level 29 mEq/L Normal 21-32 Anion Gap 6 mEq/L Low 8-16 Calcium Level 8.5 mg/dL Low 8.8-10.2 Cardiac Marker Panel 11/05/2020 [facility] [address] [place] [address] [phone] CPK Creatine Phosphokinase 76 U/L Normal 26-19 2 CK-MB Value Mass < 1.0 NG/ML Normal <3.6 MB/CK Relative Index 1.32 Normal < Or =4 13 Troponin I < 0.02 NG/ML Normal < 0.10 14 Laboratory test finding 10/23/2020 [facility] [address] [place] [address] [phone] Lipase 181 U/L Normal 73-393 Complete Blood Count 10/23/2020 [facility] Construction Controller: [place] [address] [phone] WBC 7.1 x10*3/UL 4.1 - 10.9 RBC [...] 4.4 x10*3/UL 2.0 - 7.8 A1c 10/23/2020 [facility] Construction Controller: [place] [address] [phone] Hba1c 5.8 % High <5.7 15 Est Avg Glucose 120 mg/dL High 60 - 110 Laboratory test finding 10/23/2020 [facility], Construction Controller: [place] [address] [phone] Magnesium 2.0 mg/dL 1.8 - 2.4 Comprehensive Chem Profile 10/23/2020 [facility] Construction Controller: [place] [address] [phone] Glucose 110 mg/dL High 74 - 99 16 BUN 22 mg/dL High 7 - 18 [...] mL/min >60 GFR >= 60 mL/min >60 17 Lipid Profile 10/23/2020 [facility] Construction Controller: [place] [address] [phone] Cholesterol 242 mg/dL High 131 - 200 Triglycerides 76 mg/dL 30 - 150 HDL Cholesterol 67 mg/dL High 35 - 60 LDL (Calculated) 160 CALC High 50 - 159 Laboratory test finding 10/23/2020 [facility], Construction Controller: [place] [address] [phone] Thyroid Stimulating Hormone 0.51 uIU/mL 0.3 6 - 3.74 Ua Dipstick Only 10/23/2020 [facility] , Construction Controller: [place] [address] [phone] Urine Color YELLOW Yellow Urine Appearance CLEAR Clear Urine PH 7.0 units 5.0 - 9.0 Urine Specific Captiva 1.015 1.005 - 1.030 Urine Leukocytes NEGATIVE Negative Urine Blood NEGATIVE Negative Urine Protein NEGATIVE Negative -Trace Urine Glucose NEGATIVE mg/dL Negative Urine Nitrite NEGATIVE Negative Urine Ketone NEGATIVE mg/dL Negative Urine Bilirubin NEGATIVE Negative Urine Urobilinogen 0.2 mg/dL 0.2 - 1.0 1 ASSAY INFORMATION: Real Time RT-PCR NOTE: The COVID-19 assay has been cleared by the U.S. Food and Drug Administration under the Emergency Use Authorization (EUA). Traveler | [facility] and [facility] are designated as high complexity laboratories by the Clinical Laboratory Improvement Amendments of 1988(CLIA) and are qualified to perform this test. Not Detected 2 100-125 mg/dL PRE-DIABET ES/FASTING >126 mg/dL DIABETES/FASTING 3 CHRONIC KIDNEY DISEASE STAGI NG PER NKF STAGE I & II GFR >= 60 NORMAL TO MILDLY DECREASED STAGE III GFR 30-59 MODERATELY DECREASED STAGE IV GFR 15-29 SEVERELY DECREASED STAGE V GFR <15 VERY LITTLE GFR LEFT ESRD GFR <15 ON SUPERVISOR PIPELINE MAINTENANCE 4 THE CA 125 ASSAY IS PERFORME D ON THE [employer] BY CHEMILUMINESCENCE AND SHOULD NOT BE COMPARED INTERCHANGEABLY WITH OTHER METHODS. IT SHOULD NOT BE USED ALONE A SCREENING TEST OR DIAGNOSIS FOR THE PRESENCE OR ABSENCE OF MALIGNANT DISEASE. PREDICTIONS OF DISEASE RECURRENCE SHOULD NOT BE BASED SOLELY ON VALUES OBTAINED FROM SERIAL PATIENT SERUM VALUES. 5 [facility] Electroche miluminescence Immunoassay (ECLIA) . Values obtained with different assay methods or kits cannot be used interchangeably. Results cannot be interpreted as absolute evidence of the presence or absence of malignant disease. Performed at: [address] [id number] Construction Controller: Brian Zimmerman MD, Phone: [phone] FULL REPORT IN LAB NOTES (eC W and [facility]). NEGATIVE FOR STREP PYOGENES (GROUP A) 7 This respiratory PCR panel d etects Influenza [...] and pneumonia. ORGANISM 1: PARAINFLUENZA 3 (PIV3) 8 SPECIMEN TO BE RECOLLECTED D UE TO HEMOLYSIS. LAB ASSIST at 1017 SPECIMEN TO BE RECOLLECTED DUE TO HEMOLYSIS. @Previously [facility] by [facility] on 11/05/20 at 0948. @Unreceived by [facility] on 11/05/20 at 1017. 9 SPECIMEN TO BE RECOLLECTED D UE TO HEMOLYSIS. LAB ASSIST at 1017 SPECIMEN TO BE RECOLLECTED DUE TO HEMOLYSIS. @Previously [facility] by [facility] on 11/05/20 at 0948. @Unreceived by [facility] on 11/05/20 at 1017. 10 SPECIMEN TO BE RECOLLECTED D UE TO HEMOLYSIS. LAB ASSIST at 1017 SPECIMEN TO BE RECOLLECTED DUE TO HEMOLYSIS. @[facility] by [facility] on 11/05/20 at 0948. @Unreceived by [facility] on 11/05/20 at 1017. 11 SPECIMEN TO BE RECOLLECTED D UE TO HEMOLYSIS. LAB ASSIST at 1017 SPECIMEN TO BE RECOLLECTED DUE TO HEMOLYSIS. @[facility] by [facility] on 11/05/20 at 0948. @Unreceived by [facility] on 11/05/20 at 1017. 12 Units are mL/min/1.73 m2 Chronic Kidney Disease Staging per NKF: Stage I & II GFR >=60 Normal to Mildly Decreased Stage III GFR 30-59 Moderately Decreased Stage IV GFR 15-29 Severely Decreased Stage V GFR <15 Very Little GFR Left ESRD GFR <15 on SUPERVISOR PIPELINE MAINTENANCE 13 DIAGNOSIS CRITERIA MMB ng/ml Relative Index (RI) NON-AMI < or = 5 N/A MONTERO ZONE > 5 < or = 4 AMI > 5 > 4 14 Troponin I Reference Interva l for [employer] LOCI: 99th Percentile= 0.00-0.045 ng/ml Risk Stratification: <= 0.10 ng/ml Decreased Risk for Adverse Clinical Events. 0.10-1.50 ng/ml Increased Risk for Adv erse Clinical Events. Evaluation of additional criterion and/or repeat testing in 2-6 hours is suggested to rule out myocardial damage. >= 1.50 ng/ml Indicative of Myocardial Injury. 15 Lab Result Notes: Pre-Diabetes 5.7 - 6.4 % Diabetes = or > 6.5% 16 100-125 mg/dL PRE-DIABET ES/FASTING >126 mg/dL DIABETES/FASTING 17 CHRONIC KIDNEY DISEASE STAGI NG PER NKF STAGE I & II GFR >= 60 NORMAL TO MILDLY DECREASED STAGE III GFR 30-59 MODERATELY DECREASED STAGE IV GFR 15-29 SEVERELY DECREASED STAGE V GFR <15 VERY LITTLE GFR LEFT ESRD GFR <15 ON SUPERVISOR PIPELINE MAINTENANCE Procedures Date Code Description Status 01/23/2021 61489 Office/Outpatient Established Mo d MDM 30-39 Min Completed 10/23/2020 93798 Office/Outpatient New Moderate M DM 45-59 Minutes Completed 10/23/2020 26304 EKG/Interpretation & Report Comp leted 01/27/2019 [id number] Bone Mineral Density Test Comple SwarmBuild Description No Information Available Encounters Type Date Location Provider Dx Diagnosis Office Visit 01/23/2021 8:30a [facility] PAmrikCAmrik Keating M.D. I10 Essential (primary) hyperten wen R73.09 [...] Impacted cerumen, bilateral Office Visit 10/23/2020 8:00a [facility] PLeanna Keating M.D. Z85.3 Personal history [...] M.D. 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 10/23/2020 R01.1 Cardiac murmur, unspecified [...] 05/27/2021 7:40 am - Lab Schedule at [facility] * 05/29/2021 8:30 am - Tamara Keating M.D. at [facility] * 05/29/2021 8:00 am - Nurse #2 at [facility] 01/23/2021 - Tamara Keating M.D.* [...] FOR RT OVARIAN C YST Created [address] [place] [address] [phone] Alexy Tipton MD [employer] CONSULT FOR ALLERGIC DERMATITIS Pat ient Notified 12/06/2020 [facility] [address] [place] [address] [phone] Jalen Zamora MD CONSULT FOR SCREENING COLONOSCOPY Patien t Notified 12/19/2020 [address] [facility] [address] [phone] Christopher Lora MD CARDIAC ECHO WITH DOPPLER DX : MURMUR NO PRIOR AUTH REQ PER [employer] Sent 01/16/2021 [facility] [address], [place] [address] [phone]
--- OUTSIDE RECORDS SUMMARY | 2021-02-17 07:32 | CCD ---
Author Author [facility] Organization [facility] Address Unknown Phone Unavailable Care Team Providers Care Line Installer Name Role Phone Jhony Franco Unavailable PROBLEMS No Information ALLERGIES Allergen (clinical drug ingredient) Drug/Non Drug Allergy do cumented on EMR Reaction Allergy Type Onset Date Status heparin Heparin Unknown Drug Allergy Active ENCOUNTERS from 1950 to 2021-01-17 Encounter Location Date Provider Diagnosis [facility] [address] [place] [address] [place] [address] Dec, Jhony Franco Right ovarian cyst N 83.201 IMMUNIZATIONS No Information SOCIAL HISTORY Tobacco Use: Social History Observation Description Date Details (start date - stop date) Former Smoker Sex Assigned At : Social History Observation Description Sex Assigned At Unknown Domestic Violence: Question Answer Notes Status: No history of abuse Tobacco Use: Question Answer Notes Are you a: former smoker quit in 1987 How long has it been since you last smoked? > 10 years REASON FOR REFERRAL No Information VITAL SIGNS Weight 187 lbs Dec, Height 62 in Dec, BMI 34.2 kg/m2 Dec, Blood pressure systolic 136 mm Hg Dec, Blood pressure diastolic 80 mm Hg Dec, MEDICATIONS Medication SIG (Take, Route, Frequency, Duration) Notes Start Da te End Date Status hydroCHLOROthiazide 12.5 MG 1 capsule in the morning Orally Once a da y Active Omeprazole 40 MG 1 capsule 30 minutes before morning meal Orally On a day Active Potassium Chloride ER 10 MEQ 1 tablet with food Orally Twice a day Active Synthroid 137 MCG 1 tablet in the morning on an empty stom ach Orally Once a day Active Multivitamin - 1 tablet Orally Once a day Active Vitamin D3 50 MCG (2000 UT) 1 tablet Orally Once a day Active Xyzal Allergy 24HR 5 MG 1 tablet in the evening Orally Once a day Active Zinc 50 MG 1 tablet Orally Once a day Active Losartan Potassium 50 MG 1 tablet Orally Once a day Active Albuterol Sulfate 108 (90 Base) MCG/ACT 1 puff as needed Inh alation every 4 hrs Active Calcium 600 MG 1 tablet with meals Orally Twice a day Active PROCEDURES No Information RESULTS Component Value Reference Range CA 125 Reviewed date:01/15/2021 15:54:39 Interpretation: Performing Lab:[facility], [facility], [facility] [address] [facility] [address] , ,[place] [address] CA 125 3.8 <30.2 HUMAN EPIDIDYMIS PROTEIN 4 Reviewed date:01/15/2021 15:54:39 Interpretation: Performing Lab:[facility], [facility], [facility] [address] [facility] [address] , ,[place] [address] HE4 45.3 0.0-96.5 REASON FOR VISIT REFERRAL FROM [facility] RT OVARIAN CYST MEDICAL (GENERAL) HISTORY Type Description Date Medical History 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 5 months d/t complications after 01/2011 Hospitalization History childbirth Goals Section No Information Health Concerns No Information MEDICAL EQUIPMENT No Information MENTAL STATUS No Information FUNCTIONAL STATUS No Information ASSESSMENTS Encounter Date Diagnosis Assessment Notes Treatment Notes Treatm ent Clinical Notes Dec, Right ovarian cyst (ICD-10 - N83.201) Asymptomatic. Small complex right ovarian cyst. Plan is to follow with serial US (timing depending on findings). Repeat ordered. Scheduled for 01/16. CA-125, HE-4 ordered. If labs are low risk and pelvic US reveals it is stable in size/regressing, then we will continue with expectant management. If significant growth occurs, and/or she becomes symptomatic in the presence of a persistent adnexal mass, surgery will be considered. PLAN OF TREATMENT Treatment Notes Assessment Notes Clinical Notes Right ovarian cyst Asymptomatic. Small complex right ovarian cyst. Plan is to follow with serial US (timing depending on findings). Repeat ordered. Scheduled for 01/16. CA-125, HE-4 ordered. If labs are low risk and pelvic US reveals it is stable in size/regressing, then we will continue with expectant management. If significant growth occurs, and/or she becomes symptomatic in the presence of a persistent adnexal mass, surgery will be considered. Treatment Notes Test Name Order Date WWBC Pelvis non-OB COMPLETE US 2021-01-07 Next Appt Details TBD Reason: Insurance Providers Payer Name Payer Address Payer Phone Insured Name Patient Relati onship to Insured Coverage Start Date Coverage End Date AETNA MEDICARE AETNA [id number] INSURANCE [employer] [address] [facility] [phone] OTILIA VASQUEZ self
--- OUTSIDE RECORDS SUMMARY | 2021-02-17 07:32 | CCD | Continuity of Care Document ---
Author Author Marycruz ZAMORA M.D. Organization Unknown Address [address] [place] [address] Phone [phone] Care Team Providers Care Pickle Cutter Name Role Phone Tamara Keating M.D. AUTM [phone] Problems Active Problems Provider Date Screening for [...] 360u nits Jalen Zamora M.D. 12/19/2020 [place] [phone] Tablets as directed 1box Jalen Zamora M.D. [...] F Results Description No Information Available Procedures Date Code Description Status 12/19/2020 01580 Office/Outpatient New Moderate M DM 45-59 Minutes Completed Medical Devices Description No Information Available Encounters Type Date Location Provider Dx Diagnosis Office Visit 12/19/2020 1:15p Main Office Jalen Zamora M.D. Z 12.11 Encounter for screening for malignant neoplasm of colon K21.9 Gastro-esophageal reflux dis ease without esophagitis Assessments Date Code Description Provider 12/19/2020 Z12.11 [...]
--- OUTSIDE RECORDS SUMMARY | 2021-02-17 07:32 | CCD | Continuity of Care Document ---
Author Marycruz Green Organization Unknown Address [address], [place] [address] Phone [phone] Care Team Providers Care Wide Area Network Systems Administrator Name Role Phone Tamara Keating MD AUT Unavailable Problems Description No Information Available Social History Type Date Description Comments Sex Unknown Tobacco Use Start: Unknown End: Unknown Patient is a former smoker Tobacco Use Start: Unknown End: Patient is a former smoker Smoking Status Reviewed: 12/06/20 Patient is a former smoker Allergies, Adverse Reactions, Alerts Active Allergies Criticality Reaction | Severity Comments Date Heparin Unable to assess criticality patient reports clotting 12/06/2020 Medications Active Medications SIG Qnty Indications Ordering Provide r Date Levocetirizine Dihydrochloride 5mg Tablets take one tablet by mouth twice a day 90tabs L50.3 Olive Tipton M.D. 12/06/2020 Levothyroxine Sodium 137mcg Tablet s 1 tab by mouth once daily. Alexy Tipton M.D. 0 11/18/[address] One capsule every day by mouth. Tamara Keating MD Losartan Potassium 50mg Tablets One tab by mouth once a day. Canelo Lockwood M.D. Hydrochlorothiazide 12.5mg Tablets One tablet by mouth once a day. Canelo Lockwood M.D. Albuterol Sulfate HFA 108(90Base) mcg/Act Aerosol 2 puffs inhalation route every 4-6 hours as needed. 8.5units Randall Farooq, Immunizations Description No Information Available Vital Signs Date Vital Result Comment 12/06/2020 10:22am Weight 190.00 lb Height 62 inches 5'2" Heart Rate 71 /min BP Systolic 151 mmHg BP Diastolic 69 mmHg BMI (Body Mass Index) 34.7 kg/m2 Results Description No Information Available Procedures Date Code Description Status 12/06/2020 75273 Office/Outpatient New Moderate M DM 45-59 Minutes Completed Medical Devices Description No Information Available Encounters Type Date Location Provider Dx Diagnosis Office Visit 12/06/2020 10:15a Main Office Alexy Tipton M.D. L50.3 Dermatographic urticaria J31.0 Chronic rhinitis Assessments Date Code Description Provider 12/06/2020 L50.3 Dermatographic urticaria Alexy Tipton M.D. 12/06/2020 J31.0 Chronic rhinitis Alexy berry M.D. Plan of Treatment 12/06/2020 - Alexy Tipton M.D.* L50.3 Dermatographic urticaria* New Medication:* Levocetirizine Dihydrochloride 5 mg - take one tablet by mouth twice a day * Comments:* I explained that intense episodes of itching and rash that she is developing at the area of scratching are related to significant dermatographia that this patient presents with at this time. For that reason avoidance of scratching and use of daily antihistamine is necessary. I explained that food allergy is not a cause of urticaria breakouts in this situation but certain foods can at times trigger hives or increase sensitivity without classic/allergic/IgE mediated mechanism. The foods known to lower the threshold for allergic cells to release histamine include alcohol, coffee, chocolate and lecithin in certain fruits. Most of the reactions to strawberries are caused by lecithin in strawberries that is a direct irritant for the mast cells. Therefore avoidance of foods contributing to sensitivity may be reasonable at this time. * Recommendations:* With evidence of significant dermatographia this patient should try to refrain from scratching if possible as any skin irritation will cause more hives and more itching in return. In most patients dermatographic urticaria is considered to be chronic condition that frequently persists for years and therefore use of daily, long acting antihistamine (such as Xyzal) should be considered in order to suppress her skin sensitivity. * J31.0 Chronic rhinitis* Recommendations:* May consider to come back for environmental test if her rhinitis symptoms start exacerbating. For now should use antihistamine as needed itching and sneezing. May need to add [id number] Flonase for congestion. * All * Comments:* Time spent:Reviewing notes and labs from patient's PCP: 10 minutesFace to face discussion: 30 minutesDocumenting the visit: 10 minutes * Follow up:* As needed. Functional Status Description No Information Available Mental Status Description No Information Available Referrals Description No Information Available
--- OUTSIDE RECORDS SUMMARY | 2021-02-17 07:32 | CCD | Continuity of Care Document ---
Author Author Marycruz Keating M.D. Organization Unknown Address [address] [facility] [address] [place] [address] Phone [phone] Care Team Providers Care Divisional Merchandising Manager Name Role Phone Tamara Keating MD [facility] [phone] Problems Active Problems Provider Date Essential hypertension [...] every day and 1 po qd prn heel top lift splitter Jennifer Coker 01/23/[address] 1 by mouth every day 30caps Tamara Keating M.D. 12/04/19 21 Losartan Potassium 50mg Tablets 1 by mouth every day 90tabs Tamara Keating M.D. 10/24/19 21 Synthroid 137mcg Tablets 1 by mouth every day Jose 90tabs Tamara Kaeting M.D. 10/24/19 21 Hydrochlorothiazide 12.5mg Tablets 1 [...] CPT Code Status Date Vaccine Lot # [id number] Given 01/23/2021 Influenza Vaccin e Quadrivalent Preser/Antibiotic Free Im Use [id number] Vital Signs Date Vital Result Comment 02/11/2021 [...] Result H/L Range Note Lipid Profile 01/21/2021 [facility] Fruit Grader Operator: [place] [address] [phone] Cholesterol 237 mg/dL High 131 - 200 Triglycerides 93 mg/dL 30 - 150 HDL Cholesterol 62 mg/dL High 35 - 60 LDL (Calculated) 156 CALC 50 - 159 Basic Metabolic Panel 01/21/2021 [facility] Fruit Grader Operator: Dr Nomi Aragon [place] [id number] [phone] Glucose 99 mg/dL 74 - 99 1 [...] mL/min >60 2 Laboratory test finding 01/07/2021 [facility] [address] [place] [address] [phone] CA 125 3.8 U/ML Normal <30.2 3 Human Epididymis Protein 4 01/07/2021 [facility] [address] [place] [address] [phone] He4 45.3 pmol/L Normal 0.0-96.5 4 Liver Profile 11/05/2020 [facility] [address] [place] [address] [phone] Ast/Sgot 26 U/L Normal 7-37 Alt/SGPT 52 U/L Normal 12-78 Alkaline Phosphatase 81 U/L Normal 45-117 Bilirubin,Total 0.6 mg/dL Normal 0.2-1.0 Bilirubin,Direct < 0.1 mg/dL Normal 0.0-0.2 Total Protein 7.0 GM/DL Normal 6.4-8.2 Albumin 3.7 GM/DL Normal 3.2-5.2 Albumin/Globulin Ratio 1.1 Low 1.2-2.2 Ua W/ Reflex To Culture 11/05/[address] [address] [phone] Appearance, Urine RFX CLEAR Normal Clear Color, Urine RFX STRAW Normal Yellow PH,Urine RFX 6.0 units Normal 5.0-9.0 Specific [place] Ur Auto RFX 1.005 Normal 1.002-1.035 Protein, [...] 0-1 Gats (Negative Strep Screen) 11/05/[address] [address] [phone] Gats Culture (Neg Strep SCR) FULL REPORT IN L <SEE N OTE> Normal 5 Laboratory test finding 11/05/[address] [address] [phone] Platelet Estimate NORMAL Normal Normal Differential 11/05/2020 [facility] [address] [place] [address] [phone] Neutrophils 56 % Normal 28-66 Lymphocytes 27 % Normal 16-44 Monocytes 8 % High 0-5 Eosinophils 1 % Normal 0-3 Basophils 1 % Normal 0-1 Atypical Lymph 7 % High 0-5 RBC Morphology NORMAL Normal CBC With Differential 11/05/[address] [address] [phone] White Blood Count 14.8 10 High 4.0-10.0 [...] % Normal 0-0 Laboratory test finding 11/05/2020 [facility] [address] [place] [address] [phone] Gisela Strep A NEGATIVE Normal Negative Respiratory Panel 11/05/2020 [facility] [address] [place] [address] [phone] Respiratory Panel This respiratory <SEE NOTE> 6 Laboratory test finding 11/05/[address] [address] [phone] Amylase 17 U/L Low 25-115 7 Lipase 167 U/L Normal 73-393 8 Thyroid Stimulating Hormone 1.390 uIU/ML Normal 0.358-3.740 9 Free T4 1.41 ng/dL Normal 0.76-1.46 10 Basic Metabolic Profile 11/05/[address] [address] [phone] Glucose, Fasting 88 mg/dL Normal 70-100 Blood [...] mg/dL Low 8.8-10.2 Cardiac Marker Panel 11/05/2020 [facility] C enter [address] [place] [address] [phone] CPK Creatine Phosphokinase 76 U/L Normal 26-19 2 CK-MB Value Mass < 1.0 NG/ML Normal <3.6 MB/CK Relative Index 1.32 Normal < Or =4 12 Troponin I < 0.02 NG/ML Normal < 0.10 13 Laboratory test finding 10/23/2020 [facility] [address] [place] [address] [phone] Lipase 181 U/L Normal 73-393 Complete Blood Count 10/23/2020 [facility] Fruit Grader Operator: [place] [address] [phone] WBC 7.1 x10*3/UL 4.1 - 10.9 RBC [...] 4.4 x10*3/UL 2.0 - 7.8 A1c 10/23/2020 [facility] Fruit Grader Operator: Dr Nomi [place] [address] [phone] Hba1c 5.8 % High <5.7 14 Est Avg Glucose 120 mg/dL High 60 - 110 Laboratory test finding 10/23/2020 [facility] Fruit Grader Operator: [place] [address] [phone] Magnesium 2.0 mg/dL 1.8 - 2.4 Comprehensive Chem Profile 10/23/2020 [facility] Fruit Grader Operator: [place] [address] [phone] Glucose 110 mg/dL High 74 - 99 [...] 60 mL/min >60 16 Lipid Profile 10/23/2020 [facility] , Fruit Grader Operator: Dr Nomi Aragon [place] [address]7801 [phone] Cholesterol 242 mg/dL High 131 - 200 Triglycerides 76 mg/dL 30 - 150 HDL Cholesterol 67 mg/dL High 35 - 60 LDL (Calculated) 160 CALC High 50 - 159 Laboratory test finding 10/23/2020 [facility], Fruit Grader Operator: [place] [address] [phone] Thyroid Stimulating Hormone 0.51 uIU/mL 0.3 6 - 3.74 Ua Dipstick Only 10/23/2020 [facility] , Fruit Grader Operator: [place] [address] [phone] Urine Color YELLOW Yellow Urine Appearance CLEAR Clear Urine PH 7.0 units 5.0 - 9.0 Urine Specific [place] 1.015 1.005 - 1.030 Urine Leukocytes NEGATIVE [...] LITTLE GFR LEFT ESRD GFR <15 ON DATA SOFTWARE ENGINEER 3 THE CA 125 ASSAY IS PERFORME D ON THE ParLevel SystemsAUR BY CHEMILUMINESCENCE AND SHOULD NOT BE COMPARED [...] or absence of malignant disease. Performed at: [facility] [id number] Fruit Grader Operator: Brian Zimmerman MD, Phone: [phone] FULL REPORT IN LAB NOTES (eC [...] ELAINE on 11/05/20 at 0948. @Unreceived by ADRIANA on 11/05/20 at 1017. 8 SPECIMEN TO BE RECOLLECTED D UE TO HEMOLYSIS. LAB ASSIST at 1017 SPECIMEN TO BE RECOLLECTED DUE TO HEMOLYSIS. @Previously received by CHICOVINITAARLET on 11/05/20 at 0948. @Unreceived by VINITA on 11/05/20 at 1017. 9 SPECIMEN TO BE RECOLLECTED D UE TO HEMOLYSIS. LAB ASSIST at 1017 SPECIMEN TO BE RECOLLECTED DUE TO HEMOLYSIS. @Previously received by TIM on 11/05/20 at 0948. @Unreceived by VINITA on 11/05/20 at 1017. 10 SPECIMEN TO BE RECOLLECTED D UE TO HEMOLYSIS. LAB ASSIST at 1017 SPECIMEN TO BE RECOLLECTED DUE TO HEMOLYSIS. @Previously received by TIM on 11/05/20 at 0948. @Unreceived by VINITA on 11/05/20 at 1017. 11 Units are mL/min/1.73 m2 Chronic Kidney Disease Staging per NKF: Stage I & II GFR >=60 Normal to Mildly Decreased Stage III GFR 30-59 Moderately Decreased Stage IV GFR 15-29 Severely Decreased Stage V GFR <15 Very Little GFR Left ESRD GFR <15 on DATA SOFTWARE ENGINEER 12 DIAGNOSIS CRITERIA MMB ng/ml Relative Index (RI) NON-AMI < or = 5 N/A MONTERO ZONE > 5 < or = 4 AMI > 5 > 4 13 Troponin I Reference Interva l for Siemens [employer]Fetch LOCI: 99th Percentile= 0.00-0.045 ng/ml Risk Stratification: [...] LITTLE GFR LEFT ESRD GFR <15 ON DATA SOFTWARE ENGINEER Procedures Date Code Description Status 01/23/2021 32994 Office/Outpatient Established Mo d MDM 30-39 Min Completed 10/23/2020 44850 Office/Outpatient New Moderate M DM 45-59 Minutes Completed 10/23/2020 89329 EKG/Interpretation & Report Comp leted 01/27/2019 [id number] Bone Mineral Density Test Comple Arradiance Description No Information Available Encounters Type Date Location Provider Dx Diagnosis Office Visit 01/23/2021 8:30a [facility] PLeanna Keating M.D. I10 Essential (primary) hyperten wen [...] Impacted cerumen, bilateral Office Visit 10/23/2020 [facility]a [facility] Z85.3 Personal history of malignan [...] Keating M.D. 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 10/23/2020 R01.1 Cardiac murmur, [...] 05/27/2021 7:40 am - Lab Schedule at [facility] * 05/29/2021 8:30 am - Tamara Keating M.D. at [facility] * 05/29/2021 8:00 am - Nurse #2 at [facility] 01/23/2021 - Tamara Keating M.D.* [...] FOR RT OVARIAN C YST Created [address] [place] [address] [phone] Alexy Tipton MD PATIENT CASE MANAGER CONSULT FOR ALLERGIC DERMATITIS Pat ient Notified 12/06/2020 [facility] [address],[place] [address] [phone] Jalen Zamora MD CONSULT FOR SCREENING COLONOSCOPY Patien t Notified 12/19/2020 [facility] [address] [phone] Christopher Lora MD CARDIAC ECHO WITH DOPPLER DX : MURMUR NO PRIOR AUTH REQ PER [employer] Sent 01/16/2021 [facility] [address], [place] [address] [phone]
--- OUTSIDE RECORDS SUMMARY | 2021-02-17 07:32 | CCD | Continuity of Care Document ---
Author Author Marycruz Keating M.D. 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 Jennifer Coker 01/23/[address] [...] CPT Code Status Date Vaccine Lot # [id number] Given 01/23/2021 Influenza Vaccin e Quadrivalent Preser/Antibiotic Free Im Use [id number] Vital Signs Date Vital Result Comment 01/23/2021 [...] Result H/L Range Note Lipid Profile 01/21/2021 [facility] Cyberathlete: Dr Nomi Aragon [place], [place] [address] [phone] Cholesterol 237 mg/dL High 131 - 200 Triglycerides 93 mg/dL 30 - 150 HDL Cholesterol 62 mg/dL High 35 - 60 LDL (Calculated) 156 CALC 50 - 159 Basic Metabolic Panel 01/21/2021 [facility] Cyberathlete: Dr Nomi Aragon [place] [id number] [phone] Glucose 99 mg/dL 74 - 99 1 [...] mL/min >60 2 Laboratory test finding 01/07/[address] [address] [phone] CA 125 3.8 U/ML Normal <30.2 3 Human Epididymis Protein 4 01/07/2021 [facility] [address] [place] [address] [phone] He4 45.3 pmol/L Normal 0.0-96.5 4 Liver Profile 11/05/2020 [facility] nter [address] [place] [address] [phone] Ast/Sgot 26 U/L Normal 7-37 Alt/SGPT 52 U/L Normal 12-78 Alkaline Phosphatase 81 U/L Normal 45-117 Bilirubin,Total 0.6 mg/dL Normal 0.2-1.0 Bilirubin,Direct < 0.1 mg/dL Normal 0.0-0.2 Total Protein 7.0 GM/DL Normal 6.4-8.2 Albumin 3.7 GM/DL Normal 3.2-5.2 Albumin/Globulin Ratio 1.1 Low 1.2-2.2 Ua W/ Reflex To Culture 11/05/[address] [address] [phone] Appearance, Urine RFX CLEAR Normal Clear Color, Urine RFX STRAW Normal Yellow PH,Urine RFX 6.0 units Normal 5.0-9.0 Specific [place] Ur Auto RFX 1.005 Normal 1.002-1.035 Protein, [...] Normal 0-1 Gats (Negative Strep Screen) 11/05/[address] 3897947 [phone] Gats Culture (Neg Strep SCR) FULL REPORT IN L <SEE N OTE> Normal 5 Laboratory test finding 11/05/[address] [address]7771 [phone] Platelet Estimate NORMAL Normal Normal Differential 11/05/2020 [facility] nter [address] [place] [phone] Neutrophils 56 % Normal 28-66 Lymphocytes 27 % Normal 16-44 Monocytes 8 % High 0-5 Eosinophils 1 % Normal 0-3 Basophils 1 % Normal 0-1 Atypical Lymph 7 % High 0-5 RBC Morphology NORMAL Normal CBC With Differential 11/05/[address] [phone] White Blood Count 14.8 10 High 4.0-10.0 [...] Laboratory test finding 11/05/2020 [facility] [address] [place] [address] [phone] Gisela Strep A NEGATIVE Normal Negative Respiratory Panel 11/05/2020 [facility] nter [address] [place] [address] [phone] Respiratory Panel This respiratory <SEE NOTE> 6 Laboratory test finding 11/05/[address] [address] [phone] Amylase 17 U/L Low 25-115 7 Lipase 167 U/L Normal 73-393 8 Thyroid Stimulating Hormone 1.390 uIU/ML Normal 0.358-3.740 9 Free T4 1.41 ng/dL Normal 0.76-1.46 10 Basic Metabolic Profile 11/05/[address] [address] [phone] Glucose, Fasting 88 mg/dL Normal 70-100 Blood [...] mg/dL Low 8.8-10.2 Cardiac Marker Panel 11/05/2020 [facility] enter [address] [place] [address] [phone] CPK Creatine Phosphokinase 76 U/L Normal 26-19 2 CK-MB Value Mass < 1.0 NG/ML Normal <3.6 MB/CK Relative Index 1.32 Normal < Or =4 12 Troponin I < 0.02 NG/ML Normal < 0.10 13 Laboratory test finding 10/23/2020 [facility] [address] [place], [place] 1126003 [phone] Lipase 181 U/L Normal 73-393 Complete Blood Count 10/23/2020 [facility] Cyberathlete: [place] [address] [phone] WBC 7.1 x10*3/UL 4.1 - 10.9 RBC [...] 4.4 x10*3/UL 2.0 - 7.8 A1c 10/23/2020 [facility] Cyberathlete: [place] [address] [phone] Hba1c 5.8 % High <5.7 14 Est Avg Glucose 120 mg/dL High 60 - 110 Laboratory test finding 10/23/2020 [facility] Cyberathlete: [place] [address] [phone] Magnesium 2.0 mg/dL 1.8 - 2.4 Comprehensive Chem Profile 10/23/2020 [facility] Cyberathlete: [place] [address] [phone] Glucose 110 mg/dL High 74 - 99 [...] 60 mL/min >60 16 Lipid Profile 10/23/2020 [facility] , Cyberathlete: [place] [address] [phone] Cholesterol 242 mg/dL High 131 - 200 Triglycerides 76 mg/dL 30 - 150 HDL Cholesterol 67 mg/dL High 35 - 60 LDL (Calculated) 160 CALC High 50 - 159 Laboratory test finding 10/23/2020 [facility], Cyberathlete: [place] [address] [phone] Thyroid Stimulating Hormone 0.51 uIU/mL 0.3 6 - 3.74 Ua Dipstick Only 10/23/2020 [facility] Cyberathlete: [place] [address] [phone] Urine Color YELLOW Yellow Urine Appearance CLEAR Clear Urine PH 7.0 units 5.0 - 9.0 Urine Specific [place] 1.015 1.005 - 1.030 Urine Leukocytes NEGATIVE [...] LITTLE GFR LEFT ESRD GFR <15 ON SOFTWARE LICENSING ANALYST 3 THE CA 125 ASSAY IS PERFORME D ON THE [employer] BY CHEMILUMINESCENCE AND SHOULD NOT BE COMPARED [...] or absence of malignant disease. Performed at: [address] [id number] Cyberathlete: Brian Zimmerman MD, Phone: [phone] FULL REPORT IN LAB NOTES (eC [...] @Unreceived by ADRIANA on 11/05/20 at 1017. 9 SPECIMEN TO BE RECOLLECTED D UE TO HEMOLYSIS. LAB ASSIST at 1017 SPECIMEN TO BE RECOLLECTED DUE TO HEMOLYSIS. @Previously received by ELAINE on 11/05/20 at 0948. @Unreceived by ADRIANA9 on 11/05/20 at 1017. 10 SPECIMEN TO [...] Little GFR Left ESRD GFR <15 on SOFTWARE LICENSING ANALYST 12 DIAGNOSIS CRITERIA MMB ng/ml Relative Index (RI) NON-AMI < or = 5 N/A MONTERO ZONE > 5 < or = 4 AMI > 5 > 4 13 Troponin I Reference Interva l for Siemens Interactif Vis[employer] LOCI: 99th Percentile= 0.00-0.045 ng/ml Risk Stratification: [...] LITTLE GFR LEFT ESRD GFR <15 ON SOFTWARE LICENSING ANALYST Procedures Date Code Description Status 10/23/2020 34993 Office/Outpatient New Moderate M DM 45-59 Minutes Completed 10/23/2020 29874 EKG/Interpretation & Report Comp leted 01/27/2019 [id number] Bone Mineral Density Test Comple BettrLife Description No Information Available Encounters Type Date Location Provider Dx Diagnosis Office Visit 10/23/2020 8[facility] Z85.3 Personal history of malignan [...] Cardiac murmur, unspecified Monica Keating M.D. 10/23/2020 Z85.3 Personal history of malignant ne [...] mariaelenaified Tamara Keating M.D. 10/23/2020 E03.9 Hypothyroidism, mariaelenaified Monica Keating M.D. 10/23/2020 Z13.89 Encounter for screening for othe r disorder Tamara Keating M.D. 10/23/2020 M19.90 Unspecified osteoarthritis, unsp ecified site Tamara Keating M.D. Plan of Treatment Future Appointment(s):* 05/27/2021 7:40 am - Lab Schedule at [facility] * 05/29/2021 8:30 am - Tamara Keating M.D. at [facility] * 05/29/2021 8:00 am - Nurse #2 at [facility] 01/23/2021 - Tamara Keating M.D.* [...] every day and 1 po qd prn Functional Status Description No Information Available Mental Status Description No Information Available Referrals Refer to Reason for Referral Status Appt Date [facility] CONSULT FOR RT OVARIAN C YST Created [address] [place] [address] [phone] Alexy Tipton MD OPHTHALMIC ASST CONSULT FOR ALLERGIC DERMATITIS Pat ient Notified 12/06/2020 [facility] [address] [address],[place] [address] [phone] Jalen Zamora MD CONSULT FOR SCREENING COLONOSCOPY Patien t Notified 12/19/2020 [address] [facility] [address] [phone] Christopher Lora MD CARDIAC ECHO WITH DOPPLER DX : MURMUR NO PRIOR AUTH REQ PER [employer] Sent 01/16/2021 [facility] [address], [place] [phone]
--- OUTSIDE RECORDS SUMMARY | 2021-02-17 07:33 | CCD | Continuity of Care Document ---
Author Marycruz Green Organization Unknown Address [address] [place] [address] Phone [phone] Care Team Providers Care Disability Specialist Name Role Phone Tamara Keating MD AUT [...] Ordering Provide r Date Omeprazole 40mg Capsules Tamara Muro MD Losartan Potassium 50mg Tablets Canelo Lockwood M.D. Hydrochlorothiazide 12.5mg Tablets Canelo Lockwood M.D. Albuterol Sulfate HFA 108(90Base) mcg/Act Aerosol Randall Farooq S r. Immunizations Description No Information Available Vital Signs Date Vital Result Comment 12/06/2020 10:22am Weight 190.00 lb Height 62 inches 5'2" Heart Rate 71 /min BP Systolic 151 mmHg BP Diastolic 69 mmHg BMI (Body Mass Index) 34.7 kg/m2 Results Description No Information Available Procedures Description No Information Available Medical Devices Description No Information Available Encounters Description No Information Available Assessments Description No Information Available Plan of Treatment No Information Available Functional Status Description No Information Available Mental Status Description No Information Available Referrals Description No Information Available
--- OUTSIDE RECORDS SUMMARY | 2021-02-17 07:33 | CCD ---
Author Author [facility] Organization [facility] Address Unknown Phone Unavailable Care Team Providers Care Buckle Frame Shaper Name Role Phone Rossi Zamora MD Unavailable Unavailable Rossi Zamora MD Unavailable Unavailable Rossi Zamora MD Unavailable Unavailable Rossi Zamora MD Unavailable Unavailable Rossi Zamora MD Unavailable Unavailable Rossi Zamora MD Unavailable Unavailable Rossi Zamora MD Unavailable Unavailable Rossi Zamora MD Unavailable Unavailable Rossi Zamora MD Unavailable Unavailable Rossi Zamora MD Unavailable Unavailable Rossi Zamora MD Unavailable Unavailable Rossi Zamora MD Unavailable Unavailable Rossi Zamora MD Unavailable Unavailable Rossi Zamora MD Unavailable Unavailable Rossi Zamora MD Unavailable Unavailable Rossi Zamora MD Unavailable Unavailable Rossi Zamora MD Unavailable Unavailable Rossi Zamora MD Unavailable Unavailable Rossi Zamora MD Unavailable Unavailable Rossi Zamora MD Unavailable Unavailable Rossi Zamora MD Unavailable Unavailable Rossi Zamora MD Unavailable Unavailable Rossi Zamora MD Unavailable Unavailable Rossi Zamora MD Unavailable Unavailable Rossi Zamora MD Unavailable Unavailable Rossi Zamora MD Unavailable Unavailable Rossi Zamora MD Unavailable Unavailable Rossi Zamora MD Unavailable Unavailable Rossi Zamora MD Unavailable Unavailable Rossi Zamora MD Unavailable Unavailable Rossi Zamora MD Unavailable Unavailable Rossi Zamora MD Unavailable Unavailable Sera, S Jalen ULLOA Unavailable Unavailable Sera, S Jalen MD Unavailable Unavailable Sera, S Jalen MD Unavailable Unavailable Sera, S Jalen MD Unavailable Unavailable Sera, S Jalen MD Unavailable Unavailable Sera, S Jalen MD Unavailable Unavailable Sera, S Jalen MD Unavailable Unavailable Sera, S Jalen MD Unavailable Unavailable Sera, S Jalen MD Unavailable Unavailable Sera, S Jalen MD Unavailable Unavailable Sera, S Jalen MD Unavailable Unavailable Sera, S Jalen MD Unavailable Unavailable Sera, S Jalen MD Unavailable Unavailable Sera, S Jalen MD Unavailable Unavailable Sera, S Jalen MD Unavailable Unavailable Sera, S Jalen MD Unavailable Unavailable Sera, S Jalen MD Unavailable Unavailable Sera, S Jalen MD Unavailable Unavailable LETTIERE, A CECILE PA Unavailable Unavailable LETTIERE, A CECILE PA Unavailable Unavailable LETTIERE, A CECILE PA Unavailable Unavailable LETTIERE, A CECILE PA Unavailable Unavailable LETTIERE, A CECILE PA Unavailable Unavailable LETTIERE, A CECILE PA Unavailable Unavailable LETTIERE, A CECILE PA Unavailable Unavailable LETTIERE, A CECILE PA Unavailable Unavailable LETTIERE, A CECILE PA Unavailable Unavailable LETTIERE, A CECILE PA Unavailable Unavailable LETTIERE, A CECILE PA Unavailable Unavailable LETTIERE, A CECILE PA Unavailable Unavailable LETTIERE, A CECILE PA Unavailable Unavailable LETTIERE, A CECILE PA Unavailable Unavailable LETTIERE, A CECILE PA Unavailable Unavailable LETTIERE, A CECILE PA Unavailable Unavailable LETTIERE, A CECILE PA Unavailable Unavailable LETTIERE, A CECILE PA Unavailable Unavailable LETTIERE, A CECILE PA Unavailable Unavailable LETTIERE, A CECILE PA Unavailable Unavailable LETTIERE, A CECILE PA Unavailable Unavailable LETTIERE, A CECILE PA Unavailable Unavailable LETTIERE, A CECILE PA Unavailable Unavailable LETTIERE, A CECILE PA Unavailable Unavailable LETTIERE, A CECILE PA Unavailable Unavailable LETTIERE, A CECILE PA Unavailable Unavailable LETTIERE, A CECILE PA Unavailable Unavailable LETTIERE, A CECILE PA Unavailable Unavailable LETTIERE, A CECILE PA Unavailable Unavailable LETTIERE, A CECILE PA Unavailable Unavailable LETTIERE, A CECILE PA Unavailable Unavailable KACI MARIN MD Unavailable Unavailable KACI MARIN MD Unavailable Unavailable KACI MARIN MD Unavailable Unavailable KACI MARIN MD Unavailable Unavailable KACI MARIN MD Unavailable Unavailable KACI MARIN MD Unavailable Unavailable CHROSTOWSKIBEKACI MD Unavailable Unavailable CHROSTOWSKIBEKACI MD Unavailable Unavailable CHROSTOWSKIBEKACI MD Unavailable Unavailable CHROSTOWSKIKACI MD Unavailable Unavailable CHROSTOWSKIBEKACI MD Unavailable Unavailable CHROSTOWSKIKACI MD Unavailable Unavailable CHROSTOWSKIBEKACI MD Unavailable Unavailable CHROSTOWSKIBEKACI MD Unavailable Unavailable CHROSTOWSKIBEKACI MD Unavailable Unavailable CHROSTOWSKIBEKACI MD Unavailable Unavailable CHROSTOWSKIBEKACI MD Unavailable Unavailable CHROSTOWSKIBEKACI MD Unavailable Unavailable CHROSTOWSKIBEKACI MD Unavailable Unavailable CHROSTOWSKIBEKACI MD Unavailable Unavailable CHROSTOWSKIBEKACI MD Unavailable Unavailable CHROSTOWSKIBEKACI MD Unavailable Unavailable CHROSTOWSKIKACI MD Unavailable Unavailable CHROSTOWSKIKACI MD Unavailable Unavailable CHROSTOWSKIBEKACI MD Unavailable Unavailable CHROSTOWSKIBEKACI MD Unavailable Unavailable CHROSTOWSKIBEKACI MD Unavailable Unavailable CHROSTOWSKIKACI MD Unavailable Unavailable CHROSTOWSKIBEKACI MD Unavailable Unavailable CHROSTOWSKIKACI MD Unavailable Unavailable CHROSTOWSKIBEKACI MD Unavailable Unavailable CHROSTOWSKIBEKACI MD Unavailable Unavailable CHROSTOWSKIBEKACI MD Unavailable Unavailable CHROSTOWSKIKACI MD Unavailable Unavailable CHROSTOWSKIKACI MD Unavailable Unavailable CHROSTOWSKIKACI MD Unavailable Unavailable CHROSTOWSKIKACI MD Unavailable Unavailable CHROSTOWSKIKACI MD Unavailable Unavailable CHROSTOWSKIKACI MD Unavailable Unavailable Monster Keating MD Unavailable Unavailable Monster Keating MD Unavailable Unavailable Monster Keating MD Unavailable Unavailable Monster Keating MD Unavailable Unavailable Monster Keating MD Unavailable Unavailable Monster Keating MD Unavailable Unavailable Monster Keating MD Unavailable Unavailable Monster Keating MD Unavailable Unavailable Monster Keating MD Unavailable Unavailable Monster Keating MD Unavailable Unavailable Monster Keating MD Unavailable Unavailable Monster Keating MD Unavailable Unavailable Monster Keating MD Unavailable Unavailable Monster Keating MD Unavailable Unavailable Monster Keating MD Unavailable Unavailable Monster Keating MD Unavailable Unavailable Monster Keating MD Unavailable Unavailable ZuriMonster MD Unavailable Unavailable ZuriMonster MD Unavailable Unavailable ZuriMonster MD Unavailable Unavailable ZuriMonster MD Unavailable Unavailable ZuriMonster MD Unavailable Unavailable ZuriMonster MD Unavailable Unavailable ZuriMonster MD Unavailable Unavailable ZuriMonster MD Unavailable Unavailable ZuriMonster MD Unavailable Unavailable ZuriMonster MD Unavailable Unavailable ZuriMonster MD Unavailable Unavailable ZuriMonster MD Unavailable Unavailable ZuriMonster MD Unavailable Unavailable ZuriMonster MD Unavailable Unavailable ZuriMonster MD Unavailable Unavailable ZuriMonster MD Unavailable Unavailable ZuriMonster MD Unavailable Unavailable ZuriMonster MD Unavailable Unavailable ZuriMonster MD Unavailable Unavailable ZuriMonster MD Unavailable Unavailable Monster Keating MD Unavailable Unavailable Monster Keating MD Unavailable Unavailable Monster Keating MD Unavailable Unavailable ZuriMonster jay MD Unavailable Unavailable Monster Keating MD Unavailable Unavailable Monster Keating MD Unavailable Unavailable Monster Keating MD Unavailable Unavailable Monster Keating MD Unavailable Unavailable Monster Keating MD Unavailable Unavailable Monster Keating MD Unavailable Unavailable Monster Keating MD Unavailable Unavailable Monster Keating MD Unavailable Unavailable Monster Keating MD Unavailable Unavailable Monster Keating MD Unavailable Unavailable Monster Keating MD Unavailable Unavailable Monster Keating MD Unavailable Unavailable Monster Keating MD Unavailable Unavailable Monster Keating MD Unavailable Unavailable Monster Keating MD Unavailable Unavailable Monster Keating MD Unavailable Unavailable Monster Keating MD Unavailable Unavailable Monster Keating MD Unavailable Unavailable Monster Keating MD Unavailable Unavailable Monster Keating MD Unavailable Unavailable ZuriMonster MD Unavailable Unavailable Monster Keating MD Unavailable Unavailable Monster Keating MD Unavailable Unavailable Monster Keating MD Unavailable Unavailable Monster Keating MD Unavailable Unavailable ZuriMonster MD Unavailable Unavailable Zuri, Monster Mcdonald MD Unavailable Unavailable Zuri, M Tamara MD Unavailable Unavailable Zuri, M Tamara MD Unavailable Unavailable Zuri, M Tamara MD Unavailable Unavailable Zuri, M Tamara MD Unavailable Unavailable Zuri, M Tamara MD Unavailable Unavailable Zuri, M Tamara MD Unavailable Unavailable Zuri, M Tamara MD Unavailable Unavailable Zuri, M Atmara MD Unavailable Unavailable Zuri, M Tamara MD Unavailable Unavailable Zuri, M Tamara MD Unavailable Unavailable Zuri, M Tamara MD Unavailable Unavailable Zuri, M Tamara MD Unavailable Unavailable Zuri, M Tamara MD Unavailable Unavailable Zuri, M Tamara MD Unavailable Unavailable Zuri, M Tamara MD Unavailable Unavailable Zuri, M Tamara MD Unavailable Unavailable Re-disclosure Warning The records that you are about to access may contain information from federally-assisted alcohol or drug abuse programs. If such information is present, then the following federally mandated warning applies: This information has been disclosed to you from records protected by federal confidentiality rules (42 CFR part 2). The federal rules prohibit you from making any further disclosure of this information unless further disclosure is expressly permitted by the written consent of the person to whom it pertains or as otherwise permitted by 42 CFR part 2. A general authorization for the release of medical or other information is NOT sufficient for this purpose. The Federal rules restrict any use of the information to criminally investigate or prosecute any alcohol or drug abuse patient.The records that you are about to access may contain highly sensitive health information, the redisclosure of which is protected by Article 27-F of the [facility] Public Health law. If you continue you may have access to information: Regarding HIV / AIDS; Provided by facilities licensed or operated by the [facility] Office of Mental Health; or Provided by the [facility] Office for People With Developmental Disabilities. If such information is present, then the following [facility] mandated warning applies: This information has been disclosed to you from confidential records which are protected by state law. State law prohibits you from making any further disclosure of this information without the specific written consent of the person to whom it pertains, or as otherwise permitted by law. Any unauthorized further disclosure in violation of state law may result in a fine or longterm sentence or both. A general authorization for the release of medical or other information is NOT sufficient authorization for further disc losure. Family History Family Member Name Family Member Gender Family Member Status Date o f Status Description Data Source(s) Unknown Male Problem MED[facility] ([facility] ) () Unknown Unknown Problem [facility] ([facility]) Encounters Encounter Providers Location Date Indications Data Source(s ) Outpatient Attender: Tamara Langford 08:30:00 AM EDT MED[facility] ([facility] ) Outpatient [address] [address] 01/07/2021 12:00:00 AM EDT eCW1 ([facility]) Outpatient Attender: Jalen Zamora MD Main Office 12/19/2020 01:15:00 PM EDT MED[facility] ([facility]) Outpatient Attender: KACI MARIN MD Main Office 12/06/2020 10:15:00 AM EDT [facility] ([facility]) Outpatient Attender: CECILE Dietrich jagjit 10/30/2020 08:00:00 AM EDT [facility] ([facility]) Outpatient Attender: Tamara Langford 08:00:00 AM EDT MED[facility] ([facility] ) Immunizations Vaccine Date Status Description Data Source(s) Influenza, injectable, MDCK, preservative free, jus valent 01/23/2021 08:32:00 AM EDT completed [facility] ([facility]) COVID-19 VACCINE Moderna 07/01/2020 12:00:00 AM EDT completed [facility] Vaccine Series Complete: YESThis Data wa s Submitted to [facility] Via [employer] [facility]. COVID-19 VACCINE, MRNA-1273, LNP-S (MODERNA)/PF 07/01/2020 1 2:00:00 AM EDT completed [facility] COVID-19 VACCINE Moderna 05/31/2020 12:00:00 AM EST completed [facility] Vaccine Series Complete: NOThis Data was Submitted to [facility] Via [employer]. COVID-19 VACCINE, MRNA-1273, LNP-S (MODERNA)/PF 05/31/2020 1 2:00:00 AM EST completed [facility] Medications Medication Brand Name Start Date Product Form Dose Route Admi nistrative Instructions Pharmacy Instructions Status Indications Reaction Description Data Source(s) Administration Of Flu Vaccine 01/23/2021 12:00:00 AM EDT completed [facility] Medication administered onsite levocetirizine dihydrochloride 5 MG Oral Tablet [Xyzal] Xyza l Allergy 24HR 01/23/2021 12:00:00 AM EDT ORAL active MED[facility] ([facility]) Sutab Sutab 12/19/2020 12:00:00 AM EDT active [facility] ([facility]) Aluminum Hydroxide 160 MG / magnesium carbonate 105 MG Chewable Tablet Gaviscon Extra Strength 12/19/2020 12:00:00 AM EDT ORAL active [facility] ([facility]) levocetirizine dihydrochloride 5 MG Oral Tablet Levocetirizi ne Dihydrochloride 12/06/2020 12:00:00 AM EDT ORAL active [facility] ([facility]) Omeprazole 40 MG Delayed Release Oral Capsule Omeprazole 12/03/2020 12:00:00 AM EDT ORAL active MED[facility] ([facility]) Omeprazole 20 MG Delayed Release Oral Capsule Omeprazole 11/29/2020 12:00:00 AM EDT ORAL completed [facility] ([facility]) Prednisone 20 MG Oral Tablet Prednisone 10/30/2020 12:00:00 AM EDT active MEDENT ([facility]) 60 ACTUAT Albuterol 0.09 MG/ACTUAT Metered Dose Inhaler Albu terol Sulfate HFA 10/30/2020 12:00:00 AM EDT RESPIRATORY active MEDENT ([facility], [facility]) Doxycycline Monohydrate 100 MG Oral Tablet Doxycycline Monoh ydrate 10/30/2020 12:00:00 AM EDT ORAL active M EDENT ([facility], [facility]) Cholecalciferol 2000 UNT Oral Capsule Vitamin D3 Super Stren gth 10/23/2020 12:00:00 AM EDT ORAL active M EDENT ([facility]) Multi For Her 50+ 10/23/2020 12:00:00 AM EDT active [facility] ([facility]) Fexofenadine hydrochloride 180 MG Oral Tablet Fexofenadine H CL 10/23/2020 12:00:00 AM EDT ORAL completed [facility] ([facility]) Levothyroxine Sodium 0.137 MG Oral Tablet [Synthroid] Synthr oid 10/23/2020 12:00:00 AM EDT ORAL active M EDENT ([facility]) Losartan Potassium 50 MG Oral Tablet Losartan Potassium 10/2020 12:00:00 AM EDT ORAL active MED[facility] ([facility]) Klor-Con M10 Klor-Con M10 10/23/2020 12:00:00 AM EDT ORAL active MED[facility] ([facility]) Hydrochlorothiazide 12.5 MG Oral Tablet Hydrochlorothiazide 10/23/2020 12:00:00 AM EDT ORAL active [facility] ([facility]) Calcium 10/23/2020 12:00:00 AM EDT active MED[facility] ([facility]) Covid-19 vaccine, Unspecified 06/21/2020 12:00:00 AM EST completed [facility]) Medication administered onsite Covid-19 vaccine, Unspecified 05/21/2020 12:00:00 AM EST completed [facility]) Medication administered onsite Insurance Providers Payer name Policy type / Coverage type Policy ID Covered libertarian ID Covered libertarian's relationship to calle Policy Calle Plan Information BCBS ROLANDOCA MARIA DEL ROSARIO PPO [phone] [id number] SP [id number] [employer]URANCE [id number] SP [id number] AETNA MEDICARE [id number] SP [id number] AETNA MEDICARE [id number] SP [id number] Aetna Medicare Commercial [id number] Self [id number] AETNA MEDICARE [id number] SP [id number] AETNA MEDICARE [id number] SP [id number] AETNA MEDICARE [id number] SP [id number] AETNA MEDICARE [id number] SP [id number] Cancer Services Program Commercial [id number] Self [id number] AETNA MEDICARE [id number] SP [id number] AETNA MEDICARE O [id number] S [id number] Cancer Services Program Commercial [id number] Self [id number] MEDICARE [id number] SP [id number] Aetna Ppo/Pos/Nap/MC Medigap Part B [id number] Self [id number] Medicare Natl Gov't Servi Medicare Primary [id number] Self [id number] AETNA MEDICARE [id number] SP MEBPO DIJ AETNA MEDICARE [id number] SP [id number] D1J AETNA MEDICARE -O/P [id number] AETNA MEDICARE O [id number] S [id number] AETNA MEDICARE [id number] SP [id number] Problems, Conditions, and Diagnoses Code Display Name Description Problem Type Effective Dates Data Source(s) 422454746 Screening for malignant neoplasm of colo n Screening for malignant neoplasm of colon Problem 12/19/2020 12:00:00 AM EDT MEDENT ([facility]) [id number] Hypothyroidism Hypothyroidism Problem 10/23/2020 12:00: 00 AM EDT MED[facility] ([facility]) [id number] Pure hypercholesterolemia Pure hypercholesterolemia Pr oblem 10/23/2020 12:00:00 AM EDT MED[facility] ([facility]) [id number] Abnormal glucose level Abnormal glucose level Problem 10/23/2020 12:00:00 AM EDT MED[facility] ([facility]) [id number] Essential hypertension Essential hypertension Problem 10/23/2020 12:00:00 AM EDT [facility] ([facility]) Surgeries/Procedures Procedure Description Date Indications Data Source(s) OFFICE OUTPATIENT VISIT 25 MINUTES 01/23/2021 12:00:00 AM EDT MED[facility] ([facility]) OFFICE OUTPATIENT NEW 45 MINUTES 12/19/2020 12:00:00 A M EDT MED[facility] ([facility]) OFFICE OUTPATIENT NEW 45 MINUTES 12/06/2020 12:00:00 A M EDT [facility] ([facility]) OFFICE OUTPATIENT NEW 30 MINUTES 10/30/2020 12:00:00 A M EDT [facility] ([facility], [facility]) ECG ROUTINE ECG W/LEAST 12 LDS W/I&R 10/23/2020 12:00: 00 AM EDT MED[facility] ([facility]) OFFICE OUTPATIENT NEW 45 MINUTES 10/23/2020 12:00:00 A M EDT [facility] ([facility]) Results ID Date Data Source [id number] 02/12/2021 09:20:00 AM EDT [facility] ([facility] Name Value Range Interpretation Code Description Data Toma rce(s) Supporting Document(s) Coronavirus 2019 Nasopharygeal Laboratory test result [facility] ([facility]) ASSAY INFORMATION: Real Time RT-PCR NOTE: The COVID-19 assay has been cleared by the U.S. Food and Drug Administration under the Emergency Use Authorization (EUA). [facility] and [facility] are designated as high complexity laboratories by the Clinical Laboratory Improvement Amendments of 1988(CLIA) and are qualified to perform this test. Not Detected ID Date Data Source [id number] 01/21/2021 08:45:00 AM EDT [facility] ([facility] Name Value Range Interpretation Code Description Data Toma rce(s) Supporting Document(s) Cholesterol [Mass/volume] in Serum or Plasma 237 mg/dL 131-200 [facility] ([facility]) Triglyceride [Mass/volume] in Serum or Plasma 93 mg/dL 30-150 [facility] ([facility] Cholesterol in LDL [Mass/volume] in Serum or Plasma by calcu lation 156 CALC 50-159 [facility] ([facility]) Cholesterol in HDL [Mass/volume] in Serum or Plasma 62 mg/dL 35-60 [facility] ([facility]) ID Date Data Source [id number] 01/21/2021 08:45:00 AM EDT [facility] ([facility]) Name Value Range Interpretation Code Description Data Toma rce(s) Supporting Document(s) Glucose [Mass/volume] in Serum or Plasma 99 mg/dL 74-99 [facility] ([facility]) 100-125 mg/dL PRE-DIABETES/FASTING >126 mg/dL DIABETES/FASTING Creatinine 0.9 mg/dL 0.6-1.3 [facility] ([facility]) Sodium [Moles/volume] in Serum or Plasma 143 meq/L 136-145 [facility] ([facility]) Urea nitrogen [Mass/volume] in Serum or Plasma 18 mg/dL 7-18 [facility] ([facility]) Chloride [Moles/volume] in Serum or Plasma 104 meq/L 98-107 [facility] ([facility]) Potassium [Moles/volume] in Serum or Plasma 4.0 meq/L 3.5-5.1 [facility] ([facility]) Carbon dioxide, total [Moles/volume] in Serum or Plasma 24 meq/L 21 -32 [facility] ([facility]) Calcium [Mass/volume] in Serum or Plasma 9.5 mg/dL 8.5-10.1 [facility] ([facility] Glomerular filtration rate/1.73 sq M pre dicted among non-blacks [Volume Rate/Area] in Serum or Plasma by Creatinine-based formula (MDRD) Laboratory test result [facility] ([facility] Glomerular filtration rate/1.73 sq M pre dicted among blacks [Volume Rate/Area] in Serum or Plasma by Creatinine-based formula (MDRD) Laboratory test result [facility] ([facility] <content>CHRONIC KIDNEY DISEASE STAGING PER NKF</content>
<content></content>
<content>STAGE I & II GFR >= 60 NORMAL TO MILDLY DECREASED</content>
<content>STAGE III GFR 30-59 MODERATELY DECREASED</content>
<content>STAGE IV GFR 15-29 SEVERELY DECREASED</content>
<content>STAGE V GFR <15 VERY LITTLE GFR LEFT</content>
<content>ESRD GFR <15 ON ON CAR SUPERVISOR</content>
<content></content> ID Date Data Source [id number] 01/07/2021 11:17:00 AM EDT [facility] ([facility]) Name Value Range Interpretation Code Description Data Toma rce(s) Supporting Document(s) Laboratory test finding (navigational concept) 45.3 pmol/L 0.0-96.5 [facility] ([facility]) [facility] Electrochemiluminescen ce Immunoassay (ECLIA) . Values obtained with different assay methods or kits cannot be used interchangeably. Results cannot be interpreted as absolute evidence of the presence or absence of malignant disease. Performed at: [address] [id number] Guide Excursion: Brian Zimmerman MD, Phone: [phone] ID Date Data Source [id number] 01/07/2021 11:17:00 AM EDT [facility] ([facility]) Name Value Range Interpretation Code Description Data Toma rce(s) Supporting Document(s) Cancer Ag 125 [Units/volume] in Serum or Plasma 3.8 U/ML [facility] ([facility]) THE CA 125 ASSAY IS PERFORMED ON THE [facility] BY CHEMILUMINESCENCE AND SHOULD NOT BE COMPARED INTERCHANGEABLY WITH OTHER METHODS. IT SHOULD NOT BE USED ALONE A SCREENING TEST OR DIAGNOSIS FOR THE PRESENCE OR ABSENCE OF MALIGNANT DISEASE. PREDICTIONS OF DISEASE RECURRENCE SHOULD NOT BE BASED SOLELY ON VALUES OBTAINED FROM SERIAL PATIENT SERUM VALUES. ID Date Data Source [id number] [id number] 01/07/2021 12:00:00 AM EDT eCW1 ( [facility]) Name Value Range Interpretation Code Description Data Toma rce(s) Supporting Document(s) 45.3 0.0-96.5 HE4 eC ([facility]) ID Date Data Source CA [id number] 01/07/2021 12:00:00 AM EDT eCW1 ([facility]) Name Value Range Interpretation Code Description Data Toma rce(s) Supporting Document(s) 3.8 <30.2 CA 125 eCW1 ([facility]) ID Date Data Source [id number] 11/05/2020 01:26:00 PM EDT [facility] ([facility]) Name Value Range Interpretation Code Description Data Toma rce(s) Supporting Document(s) Color, Urine RFX Laboratory test result [facility] ([facility]) Appearance, Urine RFX Laboratory test result [facility] ([facility]) PH,Urine RFX 6.0 units 5.0-9.0 [facility] ([facility]) Protein, Urine Auto RFX Laboratory test result [facility] Specific [place] [facility] Auto RFX 1.005 1.002-1.035 [facility] ([facility] Glucose, Urine (Ua) Auto RFX Laboratory test result [facility] ([facility] Ketone, Urine Auto RFX Laboratory test result [facility] ([facility] Urobilinogen, Urine Auto RFX 0.2 mg/dL 0.0-2.0 [facility] ([facility] Bilirubin, Urine Auto RFX Laboratory test result [facility] ([facility]) Nitrite, Urine Auto RFX Laboratory test result [facility] Leukocyte Esterase Ur Auto RFX Laboratory test result [facility] ([facility]) WBC, Urine Auto RFX 0 /HPF 0-3 [facility] ([facility]) Blood, Urine Blood RFX Laboratory test result [facility] Bacteria, Urine Auto RFX Laboratory test result [facility] ([facility]) RBC, Urine Auto RFX 1 /HPF 0-3 [facility] ([facility]) Squam Epithelial Cell Ur Aurfx 0 /HPF 0-6 [facility] ([facility]) Hyaline Cast, Urine Auto RFX 0 /LPF 0-1 M [facility]ENT ([facility]) ID Date Data Source [id number] 11/05/2020 01:26:00 PM EDT [facility] ([facility]) Name Value Range Interpretation Code Description Data Toma rce(s) Supporting Document(s) Laboratory test finding (navigational concept) Laboratory test result [facility] ([facility], [facility]) Laboratory test finding (navigational concept) Laboratory test result [facility] ([facility], [facility]) Laboratory test finding (navigational concept) 1.005 1.002-1.035 [facility] ([facility], [facility]) Laboratory test finding (navigational concept) 6.0 units 5.0-9.0 [facility] ([facility], [facility]) Laboratory test finding (navigational concept) Laboratory test result [facility] ([facility], [facility]) Laboratory test finding (navigational concept) Laboratory test result [facility] ([facility], [facility]) Laboratory test finding (navigational concept) Laboratory test result [facility] ([facility], [facility]) Laboratory test finding (navigational concept) Laboratory test result [facility] ([facility], [facility]) Laboratory test finding (navigational concept) 0.2 mg/dL 0.0-2.0 [facility] ([facility], [facility]) Laboratory test finding (navigational concept) Laboratory test result [facility] ([facility], [facility]) Laboratory test finding (navigational concept) Laboratory test result [facility] ([facility], [facility]) Laboratory test finding (navigational concept) Laboratory test result [facility] ([facility], [facility]) Laboratory test finding (navigational concept) 0 /HPF 0-3 [facility] ([facility], [facility]) Laboratory test finding (navigational concept) Laboratory test result [facility] ([facility], [facility]) Laboratory test finding (navigational concept) 1 /HPF 0-3 [facility] ([facility], [facility]) Laboratory test finding (navigational concept) 0 /LPF 0-1 [facility] ([facility], [facility]) Laboratory test finding (navigational concept) 0 /HPF 0-6 [facility] ([facility], [facility]) ID Date Data Source [id number] 11/05/2020 11:20:00 AM EDT [facility] ([facility]) Name Value Range Interpretation Code Description Data Toma rce(s) Supporting Document(s) Gats Culture (Neg Strep SCR) Laboratory test result [facility] FULL REPORT IN LAB NOTES (eCW and [facility] ). NEGATIVE FOR STREP PYOGENES (GROUP A) ID Date Data Source [id number] 11/05/2020 11:20:00 AM EDT [facility] ([facility]) Name Value Range Interpretation Code Description Data Toma rce(s) Supporting Document(s) Gats Culture (Neg Strep SCR) Laboratory test result [facility] ([facility]) FULL REPORT IN LAB NOTES (eCW and [facility] ). NEGATIVE FOR STREP PYOGENES (GROUP A) ID Date Data Source [id number] 11/05/2020 11:05:00 AM EDT [facility] ([facility]) Name Value Range Interpretation Code Description Data Toma rce(s) Supporting Document(s) CPK Creatine Phosphokinase 76 U/L 26-192 [facility] ([facility] CK-MB Value Mass Laboratory test result [facility] ([facility]) Troponin I Laboratory test result [facility] ([facility] <content>Troponin I Reference Interval f or Siemens Lafferty LOCI:</content>
<content></content>
<content>99th Percentile= 0.00-0.045 ng/ml</content>
<content></content>
<content>Risk Stratification:</content>
<content><= 0.10 ng/ml Decreased Risk for Adverse Clinical</content>
<content>Events.</content>
<content>0.10-1.50 ng/ml Increased Risk for Adverse Clinical</content>
<content>Events. Evaluation of additional</content>
<content>criterion and/or repeat testing in 2-6</content>
<content>hours is suggested to rule out myocardial</content>
<content>damage.</content>
<content>>= 1.50 ng/ml Indicative of Myocardial Injury.</content>
<content></content> MB/CK Relative Index 1.32 [facility] ([facility] <content>DIAGNOSIS CRITERIA</content>
<content>MMB ng/ml Relative Index (RI)</content>
<content>NON-AMI < or = 5 N/A</content>
<content>MONTERO ZONE > 5 < or = 4</content>
<content>AMI > 5 > 4</content>
<content></content> ID Date Data Source [id number] 11/05/2020 11:05:00 AM EDT [facility] ([facility]) Name Value Range Interpretation Code Description Data Toma rce(s) Supporting Document(s) Blood Urea Nitrogen 24 mg/dL 7-18 [facility] ([facility]) Creatinine For GFR 0.83 mg/dL 0.55-1.30 [facility] Glucose, Fasting 88 mg/dL 70-100 [facility] ([facility]) Glomerular Filtration Rate Laboratory test result [facility] ([facility]) <content>Units are mL/min/1.73 m2</content>
<content></content>
<content>Chronic Kidney Disease Staging per NKF:</content>
<content></content>
<content>Stage I & II GFR >=60 Normal to Mildly Decreased</content>
<content>Stage III GFR 30- 59 Moderately Decreased</content>
<content>Stage IV GFR 15-29 Severely Decreased</content>
<content>Stage V GFR <15 Very Little GFR Left</content>
<content>ESRD GFR <15 on ON CAR SUPERVISOR</content>
<content></content> Sodium Level 140 meq/L 136-145 [facility] ([facility]) Carbon Dioxide Level 29 meq/L 21-32 [facility] ([facility]) Potassium Serum 4.0 meq/L 3.5-5.1 [facility] ([facility]) Chloride Level 105 meq/L 98-107 [facility] ([facility]) Calcium Level 8.5 mg/dL 8.8-10.2 [facility] ([facility]) Anion Gap 6 meq/L 8-16 [facility]) ID Date Data Source [id number] 11/05/2020 11:05:00 AM EDT [facility] ([facility]) Name Value Range Interpretation Code Description Data Toma rce(s) Supporting Document(s) Amylase [Enzymatic activity/volume] in Serum or Plasma 17 U/L 25- 115 [facility] ([facility] SPECIMEN TO BE RECOLLECTED DUE TO HEMOLY SIS. LAB ASSIST at 1017 SPECIMEN TO BE RECOLLECTED DUE TO HEMOLYSIS. @Previously received by Char SoftwareVINITAMedGenesis [employer]9 on 11/05/20 at 0948. @Unreceived by [email or web address] on 11/05/20 at 1017. Thyrotropin [Units/volume] in Serum or Plasma by Detec tion limit <= 0.05 mIU/L 1.390 uIU/ML 0.358-3.740 [facility] ([facility] SPECIMEN TO BE RECOLLECTED DUE TO HEMOLY SIS. LAB ASSIST at 1017 SPECIMEN TO BE RECOLLECTED DUE TO HEMOLYSIS. @Previously received by Char SoftwareLAKISHA on 11/05/20 at 0948. @Unreceived by [email or web address] on 11/05/20 at 1017. Lipoprotein lipase [Enzymatic activity/volume] in Serum or P lasma 167 U/L 73-393 [facility] ([facility] SPECIMEN TO BE RECOLLECTED DUE TO HEMOLY SIS. LAB ASSIST at 1017 SPECIMEN TO BE RECOLLECTED DUE TO HEMOLYSIS. @Previously received by Char [email or web address] on 11/05/20 at 0948. @Unreceived by [email or web address] on 11/05/20 at 1017. Thyroxine (T4) free [Mass/volume] in Serum or Plasma 1.41 ng/dL 0.76- 1.46 [facility] ([facility] SPECIMEN TO BE RECOLLECTED DUE TO HEMOLY SIS. LAB ASSIST at 1017 SPECIMEN TO BE RECOLLECTED DUE TO HEMOLYSIS. @Previously received by [email or web address] on 11/05/20 at 0948. @Unreceived by [email or web address] on 11/05/20 at 1017. ID Date Data Source [id number] 11/05/2020 11:05:00 AM EDT [facility] ([facility] Name Value Range Interpretation Code Description Data Toma rce(s) Supporting Document(s) Ast/Sgot 26 U/L 7-37 [facility] Alkaline Phosphatase 81 U/L 45-117 [facility] Alt/SGPT 52 U/L 12-78 [facility]) Bilirubin,Total 0.6 mg/dL 0.2-1.0 [facility] ([facility]) Bilirubin,Direct Laboratory test result 0.0-0.2 [facility] ([facility]) Total Protein 7.0 GM/DL 6.4-8.2 [facility] ([facility]) Albumin 3.7 GM/DL 3.2-5.2 [facility] Albumin/Globulin Ratio 1.1 1.2-2.2 [facility] ([facility]) ID Date Data Source [id number] 11/05/2020 11:05:00 AM EDT [facility] ([facility]) Name Value Range Interpretation Code Description Data Toma rce(s) Supporting Document(s) Amylase [Enzymatic activity/volume] in Serum or Plasma 17 U/L 25- 115 [facility] ([facility]) SPECIMEN TO BE RECOLLECTED DUE TO HEMOLY SIS. LAB ASSIST at 1017 SPECIMEN TO BE RECOLLECTED DUE TO HEMOLYSIS. @Previously received by Char SoftwareVINITAMOUNT NITTANY MEDICAL CENTERLinda on 11/05/20 at 0948. @Unreceived by [facility]360[facility]9 on 11/05/20 at 1017. Thyrotropin [Units/volume] in Serum or Plasma 1.390 uIU/ML 0.358-3.74 0 [facility] ([facility]) SPECIMEN TO BE RECOLLECTED DUE TO HEMOLY SIS. LAB ASSIST at 1017 SPECIMEN TO BE RECOLLECTED DUE TO HEMOLYSIS. @Previously received by Char SoftwareLAKISHA on 11/05/20 at 0948. @Unreceived by Cor[facility]360[facility]9 on 11/05/20 at 1017. Lipoprotein lipase [Enzymatic activity/volume] in Serum or P lasma 167 U/L 73-393 [facility] ([facility], [facility]) SPECIMEN TO BE RECOLLECTED DUE TO HEMOLY SIS. LAB ASSIST at 1017 SPECIMEN TO BE RECOLLECTED DUE TO HEMOLYSIS. @Previously received by [place]DOU[place] [id number] on 11/05/20 at 0948. @Unreceived by [place] [id number] on 11/05/20 at 1017. Thyroxine (T4) free [Mass/volume] in Serum or Plasma 1.41 ng/dL 0.76- 1.46 [facility] ([facility]) SPECIMEN TO BE RECOLLECTED DUE TO HEMOLY SIS. LAB ASSIST at 1017 SPECIMEN TO BE RECOLLECTED DUE TO HEMOLYSIS. @Previously received by [place] [id number] on 11/05/20 at 0948. @Unreceived by [place] [id number] on 11/05/20 at 1017. ID Date Data Source [id number] 11/05/2020 11:05:00 AM EDT [facility] ([facility]) Name Value Range Interpretation Code Description Data Toma rce(s) Supporting Document(s) Glucose, Fasting 88 mg/dL 70-100 [facility] ([facility]) Blood Urea Nitrogen 24 mg/dL 7-18 [facility] ([facility]) Glomerular Filtration Rate Laboratory test result [facility] ([facility]) <content>Units are mL/min/1.73 m2</content>
<content></content>
<content>Chronic Kidney Disease Staging per NKF:</content>
<content></content>
<content>Stage I & II GFR >=60 Normal to Mildly Decreased</content>
<content>Stage III GFR 30- 59 Moderately Decreased</content>
<content>Stage IV GFR 15-29 Severely Decreased</content>
<content>Stage V GFR <15 Very Little GFR Left</content>
<content>ESRD GFR <15 on ON CAR SUPERVISOR</content>
<content></content> Creatinine For GFR 0.83 mg/dL 0.55-1.30 [facility] ([facility], [facility]) Sodium Level 140 meq/L 136-145 [facility] ([facility]) Potassium Serum 4.0 meq/L 3.5-5.1 [facility] ([facility]) Chloride Level 105 meq/L 98-107 [facility] ([facility], [facility]) Carbon Dioxide Level 29 meq/L 21-32 [facility] ([facility], [facility]) Anion Gap 6 meq/L 8-16 [facility] ([facility], [facility]) Calcium Level 8.5 mg/dL 8.8-10.2 [facility] ([facility], [facility]) ID Date Data Source [id number] 11/05/2020 11:05:00 AM EDT [facility] ([facility], [facility]) Name Value Range Interpretation Code Description Data Toma rce(s) Supporting Document(s) Ast/Sgot 26 U/L 7-37 [facility] ([facility], [facility]) Alt/SGPT 52 U/L 12-78 [facility] ([facility], [facility]) Alkaline Phosphatase 81 U/L 45-117 [facility] ([facility], [facility]) Bilirubin,Total 0.6 mg/dL 0.2-1.0 [facility] ([facility], [facility]) Total Protein 7.0 GM/DL 6.4-8.2 [facility] ([facility], [facility]) Albumin 3.7 GM/DL 3.2-5.2 [facility] ([facility], [facility]) Bilirubin,Direct Laboratory test result 0.0-0.2 [facility] ([facility]) Albumin/Globulin Ratio 1.1 1.2-2.2 [facility] ([facility]) ID Date Data Source [id number] 11/05/2020 11:05:00 AM EDT [facility] ([facility], [facility]) Name Value Range Interpretation Code Description Data Toma rce(s) Supporting Document(s) CPK Creatine Phosphokinase 76 U/L 26-192 [facility] ([facility], [facility]) MB/CK Relative Index 1.32 [facility] ([facility], [facility]) <content>DIAGNOSIS CRITERIA</content>
<content>MMB ng/ml Relative Index (RI)</content>
<content>NON-AMI < or = 5 N/A</content>
<content>MONTERO ZONE > 5 < or = 4</content>
<content>AMI > 5 > 4</content>
<content></content> CK-MB Value Mass Laboratory test result [facility] ([facility], [facility]) Troponin I Laboratory test result [facility] ([facility], [facility]) <content>Troponin I Reference Interval f or Siemens Lafferty LOCI:</content>
<content></content>
<content>99th Percentile= 0.00-0.045 ng/ml</content>
<content></content>
<content>Risk Stratification:</content>
<content><= 0.10 ng/ml Decreased Risk for Adverse Clinical</content>
<content>Events.</content>
<content>0.10-1.50 ng/ml Increased Risk for Adverse Clinical</content>
<content>Events. Evaluation of additional</content>
<content>criterion and/or repeat testing in 2-6</content>
<content>hours is suggested to rule out myocardial</content>
<content>damage.</content>
<content>>= 1.50 ng/ml Indicative of Myocardial Injury.</content>
<content></content> ID Date Data Source [id number] 11/05/2020 10:04:00 AM EDT [facility] ([facility]) Name Value Range Interpretation Code Description Data Toma rce(s) Supporting Document(s) Respiratory Panel Laboratory test result [facility] ([facility] This respiratory PCR panel detects Influ claudio A H1, H3 and 2009 H1 viruses, [...] and pneumonia. ORGANISM 1: PARAINFLUENZA 3 (PIV3) ID Date Data Source [id number] 11/05/2020 10:04:00 AM EDT [facility] Name Value Range Interpretation Code Description Data Toma rce(s) Supporting Document(s) SARS-CoV-2 (COVID 19) NEGATIVE - SARS-CoV-2 (COVID19) [facility] This lab was ordered by [facility] a nd reported by [facility]. ID Date Data Source [id number] 11/05/2020 10:04:00 AM EDT [facility] ([facility]) Name Value Range Interpretation Code Description Data Toma rce(s) Supporting Document(s) Respiratory Panel Laboratory test result [facility] ([facility]) This respiratory PCR panel detects Influ claudio A H1, H3 and 2009 H1 viruses, [...] and pneumonia. ORGANISM 1: PARAINFLUENZA 3 (PIV3) ID Date Data Source [id number] 11/05/2020 09:53:00 AM EDT [facility] ([facility]) Name Value Range Interpretation Code Description Data Toma rce(s) Supporting Document(s) Laboratory test finding (navigational concept) Laboratory test result [facility] ([facility]) ID Date Data Source [id number] 11/05/2020 09:42:00 AM EDT [facility] ([facility]) Name Value Range Interpretation Code Description Data Toma rce(s) Supporting Document(s) White Blood Count 14.8 10 4.0-10.0 [facility] ([facility]) Red Blood Count 5.30 10 4.00-5.40 [facility] ([facility]) Hematocrit 49.7 % 36.0-47.0 [facility] ([facility]) Hemoglobin 16.5 g/dL 12.0-15.5 [facility] ([facility]) Mean Corpuscular Volume 93.8 fl 80.0-96.0 [facility] ([facility]) Mean Corpuscular Hemoglobin 31.1 pg 27.0-33.0 OR DENT ([facility]) Mean Corpuscular HGB Conc 33.2 g/dL 32.0-36.5 MED[facility] NT ([facility]) Red Cell Distribution Width 13.1 % 11.5-14.5 OR [facility] ([facility]) Nucleated Red Blood Cell % 0.0 % 0-0 [facility] ([facility]) Platelet Count, Automated 237 10 150-450 [facility] ([facility]) ID Date Data Source [id number] 11/05/2020 09:42:00 AM EDT [facility] ([facility]) Name Value Range Interpretation Code Description Data Toma rce(s) Supporting Document(s) Neutrophils 56 % 28-66 [facility] ([facility]) Lymphocytes 27 % 16-44 [facility] ([facility]) Eosinophils 1 % 0-3 [facility] ([facility]) Monocytes 8 % 0-5 [facility] Atypical Lymph 7 % 0-5 [facility] ([facility]) RBC Morphology Laboratory test result OR DENT ([facility]) Basophils 1 % 0-1 [facility] ID Date Data Source [id number] 11/05/2020 09:42:00 AM EDT [facility] ([facility]) Name Value Range Interpretation Code Description Data Toma rce(s) Supporting Document(s) Platelets [#/volume] in Blood by Estimate Laboratory test result [facility] ([facility]) ID Date Data Source [id number] 11/05/2020 09:42:00 AM EDT [facility] ([facility]) Name Value Range Interpretation Code Description Data Toma rce(s) Supporting Document(s) Platelets [#/volume] in Blood by Estimate Laboratory test result [facility] ([facility], [facility]) Not an Urgent Care Patient ID Date Data Source [id number] 11/05/2020 09:42:00 AM EDT [facility] ([facility], [facility]) Name Value Range Interpretation Code Description Data Toma rce(s) Supporting Document(s) White Blood Count 14.8 10 4.0-10.0 [facility] ([facility], [facility]) Not an Urgent Care Patient Red Blood Count 5.30 10 4.00-5.40 [facility] ([facility], [facility]) Not an Urgent Care Patient Mean Corpuscular Volume 93.8 fl 80.0-96.0 M EDENT ([facility], [facility]) Not an Urgent Care Patient Hematocrit 49.7 % 36.0-47.0 [facility] ([facility], [facility]) Not an Urgent Care Patient Hemoglobin 16.5 g/dL 12.0-15.5 [facility] ([facility], [facility]) Not an Urgent Care Patient Mean Corpuscular Hemoglobin 31.1 pg 27.0-33.0 [facility] ([facility], [facility]) Not an Urgent Care Patient Mean Corpuscular HGB Conc 33.2 g/dL 32.0-36.5 [facility] ([facility], [facility]) Not an Urgent Care Patient Red Cell Distribution Width 13.1 % 11.5-14.5 [facility] ([facility], [facility]) Not an Urgent Care Patient Platelet Count, Automated 237 10 150-450 [facility] ([facility], [facility]) Not an Urgent Care Patient Nucleated Red Blood Cell % 0.0 % 0-0 [facility] ([facility], [facility]) Not an Urgent Care Patient ID Date Data Source [id number] 11/05/2020 09:42:00 AM EDT [facility] ([facility]) Name Value Range Interpretation Code Description Data Toma rce(s) Supporting Document(s) Neutrophils 56 % 28-66 [facility] ([facility], [facility]) Not an Urgent Care Patient Lymphocytes 27 % 16-44 [facility] ([facility], [facility]) Not an Urgent Care Patient Basophils 1 % 0-1 [facility] ([facility], [facility]) Not an Urgent Care Patient Monocytes 8 % 0-5 [facility] ([facility], [facility]) Not an Urgent Care Patient Eosinophils 1 % 0-3 [facility] ([facility], [facility]) Not an Urgent Care Patient RBC Morphology Laboratory test result [facility] ([facility]) Not an Urgent Care Patient Atypical Lymph 7 % 0-5 [facility] ([facility], [facility]) Not an Urgent Care Patient ID Date Data Source [id number] 10/23/2020 09:00:00 AM EDT [facility] ([facility]) Name Value Range Interpretation Code Description Data Toma rce(s) Supporting Document(s) Lipoprotein lipase [Enzymatic activity/volume] in Serum or P lasma 181 U/L 73-393 [facility] ([facility]) ID Date Data Source [id number] 10/23/2020 08:58:00 AM EDT [facility] ([facility]) Name Value Range Interpretation Code Description Data Toma rce(s) Supporting Document(s) Urine Color Laboratory test result [facility] ([facility]) Urine Appearance Laboratory test result [facility] ([facility]) Urine PH 7.0 units 5.0-9.0 [facility] Urine Leukocytes Laboratory test result [facility] ([facility]) Urine Blood Laboratory test result [facility] ([facility]) Specific gravity of Urine 1.015 1.005-1.030 OR [facility] ([facility]) Glucose [Presence] in Urine Laboratory test result [facility] ([facility]) Urine Nitrite Laboratory test result [facility] ([facility]) Urine Protein Laboratory test result 0-0 [facility] ([facility]) Urine Ketone Laboratory test result [facility] ([facility] Urine Urobilinogen 0.2 mg/dL 0.2-1.0 [facility] ([facility]) Bilirubin.total [Mass/volume] in Serum or Plasma Laboratory test resu lt [facility] ([facility]) ID Date Data Source [id number] 10/23/2020 08:58:00 AM EDT [facility] ([facility]) Name Value Range Interpretation Code Description Data Toma rce(s) Supporting Document(s) Thyrotropin [Units/volume] in Serum or Plasma by Detec tion limit <= 0.05 mIU/L 0.51 uIU/mL 0.36-3.74 [facility] ([facility] ID Date Data Source [id number] 10/23/2020 08:58:00 AM EDT [facility] ([facility]) Name Value Range Interpretation Code Description Data Toma rce(s) Supporting Document(s) Cholesterol [Mass/volume] in Serum or Plasma 242 mg/dL 131-200 [facility] ([facility]) Triglyceride [Mass/volume] in Serum or Plasma 76 mg/dL 30-150 [facility] ([facility]) Cholesterol in LDL [Mass/volume] in Serum or Plasma by calcu lation 160 CALC 50-159 [facility] ([facility]) Cholesterol in HDL [Mass/volume] in Serum or Plasma 67 mg/dL 35-60 [facility] ([facility]) ID Date Data Source [id number] 10/23/2020 08:58:00 AM EDT [facility] ([facility]) Name Value Range Interpretation Code Description Data Toma rce(s) Supporting Document(s) Glucose [Mass/volume] in Serum or Plasma 110 mg/dL 74-99 [facility] ([facility]) 100-125 mg/dL PRE-DIABETES/FASTING >126 mg/dL DIABETES/FASTING Creatinine 0.8 mg/dL 0.6-1.3 [facility] Sodium [Moles/volume] in Serum or Plasma 142 meq/L 136-145 [facility] ([facility]) Urea nitrogen [Mass/volume] in Serum or Plasma 22 mg/dL 7-18 [facility] ([facility]) Potassium [Moles/volume] in Serum or Plasma 4.2 meq/L 3.5-5.1 [facility] ([facility]) Chloride [Moles/volume] in Serum or Plasma 104 meq/L 98-107 [facility] ([facility]) Carbon dioxide, total [Moles/volume] in Serum or Plasma 29 meq/L 21 -32 [facility] ([facility]) Calcium [Mass/volume] in Serum or Plasma 9.2 mg/dL 8.5-10.1 [facility] ([facility]) Total Bilirubin 0.5 mg/dL 0.2-1.0 [facility] ([facility]) Alkaline phosphatase isoenzyme [Units/volume] in Serum or Pl asma 89 mg/dL 46-116 [facility] ([facility]) Albumin [Mass/volume] in Serum or Plasma 4.1 g/dL 3.4-5.0 [facility] ([facility]) Aspartate aminotransferase [Enzymatic activity/volume] in Serum or Plasma 23 U/L 15-37 [facility] ([facility] ) Alanine aminotransferase [Enzymatic activity/volume] in Seru m or Plasma 29 U/L 12-78 [facility] ([facility]) Proteinase 3 Ab [Units/volume] in Serum 7.3 g/dL 6.4-8.2 [facility] ([facility]) Glomerular filtration rate/1.73 sq M pre dicted among blacks [Volume Rate/Area] in Serum or Plasma by Creatinine-based formula (MDRD) Laboratory test result [facility] ([facility]) <content>CHRONIC KIDNEY DISEASE STAGING PER NK[facility]</content>
<content></content>
<content>STAGE I & II GFR >= 60 NORMAL TO MILDLY DECREASED</content>
<content>STAGE III GFR 30-59 MODERATELY DECREASED</content>
<content>STAGE IV GFR 15-29 SEVERELY DECREASED</content>
<content>STAGE V GFR <15 VERY LITTLE GFR LEFT</content>
<content>ESRD GFR <15 ON ON CAR SUPERVISOR</content>
<content></content> A/G Ratio 1.28 CALC 1.00-1.90 [facility] ([facility]) Glomerular filtration rate/1.73 sq M pre dicted among non-blacks [Volume Rate/Area] in Serum or Plasma by Creatinine-based formula (MDRD) Laboratory test result [facility] ([facility] ID Date Data Source [id number] 10/23/2020 08:58:00 AM EDT [facility] ([facility] Name Value Range Interpretation Code Description Data Toma rce(s) Supporting Document(s) Magnesium 2.0 mg/dL 1.8-2.4 [facility] ([facility]) ID Date Data Source [id number] 10/23/2020 08:58:00 AM EDT [facility] ([facility] Name Value Range Interpretation Code Description Data Toma rce(s) Supporting Document(s) Hemoglobin A1c/Hemoglobin.total in Blood 5.8 % [facility] ([facility]) Lab Result Notes: Pre-Diabetes 5.7 - 6.4 % Diabetes = or > 6.5% Glucose mean value [Mass/volume] in Blood Estimated fr om glycated hemoglobin 120 mg/dL 60-110 [facility] ID Date Data Source [id number] 10/23/2020 08:58:00 AM EDT [facility] ([facility] Name Value Range Interpretation Code Description Data Toma rce(s) Supporting Document(s) Leukocytes [#/volume] in Blood by Automated count 7.1 x10*3/UL 4.1-10 .9 [facility] ([facility] Erythrocytes [#/volume] in Blood by Automated count 4.41 x10*6/UL 4.2 0-6.30 [facility] Hemoglobin [Mass/volume] in Blood 13.7 g/dL 12.0-18.0 [facility] ([facility] MCV 90.7 fL 80.0-97.0 [facility] ([facility]) Hematocrit [Volume Fraction] of Blood by Automated count 40.0 % 3 7.0-51.0 [facility] ([facility]) MCH 31.1 pg 26.0-32.0 [facility] ([facility]) MCHC 34.3 g/dL 31.0-38.0 [facility] ([facility]) Erythrocyte distribution width [Ratio] by Automated count 13.2 % 11.6-13.7 [facility] ([facility] Platelets [#/volume] in Blood by Automated count 195 x10*3/UL 140-440 [facility] ([facility] Lymph % 30.1 % 10.0-58.5 [facility] ([facility]) MPV 8.0 FL 7.8-11.0 [facility] ([facility]) Neut % 62.1 % 37.0-92.0 [facility] ([facility]) Mid % 7.8 % 1.7-9.3 [facility] ([facility]) Lymph # 2.1 x10*3/UL 0.6-4.1 [facility] ([facility]) Neut # 4.4 x10*3/UL 2.0-7.8 [facility] ([facility]) Mid # 0.6 x10*3/UL 0.1-0.6 [facility] ([facility]) ID Date Data Source [id number] 10/23/2020 08:58:00 AM EDT [facility] ([facility]) Name Value Range Interpretation Code Description Data Toma rce(s) Supporting Document(s) Hemoglobin A1c/Hemoglobin.total in Blood Laboratory test result [facility] ([facility]) Magnesium, Serum Laboratory test result [facility] ([facility]) Procedure Social History Code Duration Value Status Description Data Source(s ) Smoking 01/07/2021 12:00:00 AM EDT Former Smoker completed Former Smoker eCW1 ([facility]) Smoking 12/06/2020 12:00:00 AM EDT Patient is a former smoker completed Patient is a former smoker [facility] ([facility] ) Smoking 10/30/2020 12:00:00 AM EDT Patient is a former smoker completed Patient is a former smoker [facility] ([facility]) Smoking 10/23/2020 12:00:00 AM EDT Patient is a former smoker completed Patient is a former smoker [facility] ([facility]) Vital Signs ID Date Data Source UNK Name Value Range Interpretation Code Description Data Source(s) Systolic blood pressure 136 mm[Hg] 136 mm[Hg] M [facility] ([facility]) LT Arm Body mass index (BMI) [Ratio] 34.4 kg/m2 34.4 k g/m2 [facility] ([facility]) Diastolic blood pressure 80 mm[Hg] 80 mm[Hg] [facility] ([facility]) LT Arm Heart rate 64 /min 64 /min [facility] ([facility]) Body height 62 [in_i] 62 [in_i] [facility] ([facility]) 5'2" Body weight 188.00 [lb_av] 188.00 [lb_av] [facility] ([facility]) Oxygen saturation in Arterial blood by Pulse oximetry --post exerci se 97 % 97 % [facility] ([facility]) RM Air Systolic blood pressure 126 mm[Hg] 126 mm[Hg] [facility] ([facility]) LT Arm Diastolic blood pressure 86 mm[Hg] 86 mm[Hg] [facility] ([facility]) LT Arm Heart rate 64 /min 64 /min [facility] ([facility]) Body height 62 [in_i] 62 [in_i] [facility] ([facility]) 5'2" Body weight 186.50 [lb_av] 186.50 [lb_av] [facility] ([facility]) Body mass index (BMI) [Ratio] 34.1 kg/m2 34.1 k g/m2 [facility] ([facility]) Body weight 187 [lb_av] 187 [lb_av] eCW1 ([facility]) Body height 62 [in_i] 62 [in_i] W1 ([facility]) Body mass index (BMI) [Ratio] 34.2 kg/m2 34.2 k g/m2 eCW1 ([facility]) Systolic blood pressure 136 mm[Hg] 136 mm[Hg] e CW1 ([facility]) Diastolic blood pressure 80 mm[Hg] 80 mm[Hg] eCW1 ([facility]) Body height 62 [in_i] 62 [in_i] [facility] ([facility]) 5'2" Body weight 187.00 [lb_av] 187.00 [lb_av] [facility] ([facility]) Systolic blood pressure 134 mm[Hg] 134 mm[Hg] M [facility] ([facility]) Diastolic blood pressure 78 mm[Hg] 78 mm[Hg] [facility] ([facility]) Heart rate 68 /min 68 /min [facility] ([facility]) Body mass index (BMI) [Ratio] 34.2 kg/m2 34.2 k g/m2 [facility] ([facility]) Body weight 84.823 kg 84.823 kg [facility] ([facility]) Body temperature 93.9 [degF] 93.9 [degF] [facility] ([facility]) Body weight 190.00 [lb_av] 190.00 [lb_av] [facility] ([facility]) Body height 62 [in_i] 62 [in_i] [facility] ([facility] 5'2" Heart rate 71 /min 71 /min [facility] Systolic blood pressure 151 mm[Hg] 151 mm[Hg] M [facility] ([facility]) Diastolic blood pressure 69 mm[Hg] 69 mm[Hg] [facility] ([facility]) Body mass index (BMI) [Ratio] 34.7 kg/m2 34.7 k g/m2 [facility] ([facility]) Diastolic blood pressure 85 mm[Hg] 85 mm[Hg] [facility] ([facility]) Body height 62 [in_i] 62 [in_i] [facility] ([facility], [facility]) 5'2" Body mass index (BMI) [Ratio] 32.9 kg/m2 32.9 k g/m2 [facility] ([facility], [facility]) Heart rate 71 /min 71 /min [facility] ([facility], [facility]) Respiratory rate 17 /min 17 /min [facility] ( [facility], [facility]) Oxygen saturation in Arterial blood by Pulse oximetry 98 % 98 % [facility] ([facility], [facility]) Body temperature 98.0 [degF] 98.0 [degF] [facility] ([facility], [facility]) Body weight 180.00 [lb_av] 180.00 [lb_av] [facility] T ([facility], [facility]) Systolic blood pressure 122 mm[Hg] 122 mm[Hg] M [facility] ([facility], [facility]) Body mass index (BMI) [Ratio] 34.2 kg/m2 34.2 k g/m2 [facility] ([facility]) Systolic blood pressure 124 mm[Hg] 124 mm[Hg] [facility] ([facility]) Diastolic blood pressure 72 mm[Hg] 72 mm[Hg] [facility] ([facility]) Heart rate 81 /min 81 /min [facility] ([facility]) Body height 62 [in_i] 62 [in_i] [facility] ([facility]) 5'2" Body weight 187.00 [lb_av] 187.00 [lb_av] [facility] ([facility])
[2021-02-17] MEDS ORDERED: LIDOCAINE 2% 100MG/5ML SDV (FOR ANES.) As Ordered ONE (08:20)
[2021-02-17] MEDS ORDERED: propofoL 200 MG/20 ML VIAL As Ordered ONE ×2 (08:20→08:21)
--- NOTE | 2021-02-17 08:54 | ROOR ---
Patient Name: Marycruz Ramirez Procedure Date: 02/17/2021 8:38 AM Date of : 1950 Age: 70 Room: [facility] Gender: Female Note Status: Finalized Procedure: Upper Endoscopy + Biopsies Indications: Heartburn, Exclusion of Jung's esophagus Providers: Jalen Zamora MD Referring MD: Tamara MORENO MD Requesting Provider: Medicines: Monitored Anesthesia Care Complications: No immediate complications. Procedure: Pre-Anesthesia Assessment: - The heart rate, respiratory rate, oxygen saturations, blood pressure, adequacy of pulmonary ventilation, and response to care were monitored throughout the procedure. The Endoscope was introduced through the mouth, and advanced to the second part of duodenum. The upper GI endoscopy was accomplished without difficulty. The patient tolerated the procedure well. Findings: The Z-line was regular and was found 35 cm from the incisors. Multiple biopsies were obtained with cold forceps for evaluation to rule out Jung's Esophagus randomly at the gastroesophageal junction. A small hiatal hernia was present. No other significant abnormalities were identified in a careful examination of the stomach. The exam of the duodenum was otherwise normal. Impression: - Z-line regular, 35 cm from the incisors. - Small hiatal hernia. - Multiple biopsies were obtained at the gastroesophageal junction. - The examination was otherwise normal. Recommendation: - Patient has a contact number available for emergencies. The signs and symptoms of potential delayed complications were discussed with the patient. Return to normal activities tomorrow. Written discharge instructions were provided to the patient. - High fiber diet. - Discharge patient to home. - Follow an antireflux regimen. - Continue present medications. - Await pathology results. - Telephone GI clinic for pathology results in 1 week. - Return to referring physician. - The findings and recommendations were discussed with the patient. Procedure Code(s): --- Professional --- 17733, Esophagogastroduodenoscopy, flexible, transoral; with biopsy, single or multiple Diagnosis Code(s): --- Professional --- K44.9, Diaphragmatic hernia without obstruction or gangrene R12, Heartburn CPT copyright 2019 [employer]. All rights reserved. The codes documented in this report are preliminary and upon clinical coder review may be revised to meet current compliance requirements. Jalen Zamora MD Jalen Zamora MD 02/17/2021 8:54:41 AM Electronically signed by Jalen Zamora MD Number of Addenda: 0 Note Initiated On: 02/17/2021 8:38 AM Estimated Blood Loss: Estimated blood loss: none.
--- NOTE | 2021-02-17 09:16 | ROOR ---
Patient Name: Marycruz Ramirez Procedure Date: 02/17/2021 8:39 AM Date of : 1950 Age: 70 Room: [facility] Gender: Female Note Status: Finalized Procedure: Total Colonoscopy to Cecum + Cold Snare Polypectomy + Hemoclips Indications: Screening for colorectal malignant neoplasm, Last colonoscopy: 2010 Providers: Jalen Zamora MD Referring MD: Tamara MORENO MD Requesting Provider: Medicines: Monitored Anesthesia Care Complications: No immediate complications. Procedure: Pre-Anesthesia Assessment: - The heart rate, respiratory rate, oxygen saturations, blood pressure, adequacy of pulmonary ventilation, and response to care were monitored throughout the procedure. The Colonoscope was introduced through the anus and advanced to the cecum, identified by appendiceal orifice and ileocecal valve. The colonoscopy was performed without difficulty. The patient tolerated the procedure well. The quality of the bowel preparation was good. Findings: The perianal and digital rectal examinations were normal. Non-bleeding internal hemorrhoids were found during retroflexion. The hemorrhoids were small and Grade I (internal hemorrhoids that do not prolapse). Scattered small-mouthed diverticula were found in the recto-sigmoid colon, sigmoid colon and descending colon. A small polyp was found at 60 cm proximal to the anus. The polyp was sessile. The polyp was removed with a cold snare. Resection and retrieval were complete. To prevent bleeding after the polypectomy, one hemostatic clip was successfully placed. There was no bleeding at the end of the procedure. The exam was otherwise without abnormality on direct and retroflexion views. Impression: - Non-bleeding internal hemorrhoids. - Diverticulosis in the recto-sigmoid colon, in the sigmoid colon and in the descending colon. - One small polyp at 60 cm proximal to the anus, removed with a cold snare. Resected and retrieved. Clip was placed. - The examination was otherwise normal on direct and retroflexion views. - The exam was otherwise normal to the cecum. Recommendation: - Patient has a contact number available for emergencies. The signs and symptoms of potential delayed complications were discussed with the patient. Return to normal activities tomorrow. Written discharge instructions were provided to the patient. - High fiber diet. - Discharge patient to home. - Continue present medications. - Await pathology results. - Repeat colonoscopy in 5 years for surveillance based on pathology results. - Return to referring physician. - Telephone GI clinic for pathology results in 1 week. - The findings and recommendations were discussed with the patient. Procedure Code(s): --- Professional --- 94460, Colonoscopy, flexible; with removal of tumor(s), polyp(s), or other lesion(s) by snare technique Diagnosis Code(s): --- Professional --- Z12.11, Encounter for screening for malignant neoplasm of colon K64.0, First degree hemorrhoids K63.5, Polyp of colon K57.30, Diverticulosis of large intestine without perforation or abscess without bleeding CPT copyright 2019 [employer]. All rights reserved. The codes documented in this report are preliminary and upon operations vocational instructor review may be revised to meet current compliance requirements. Jalen Zamora MD Jalen Zamora MD 02/17/2021 9:16:31 AM Electronically signed by Jalen Zamroa MD Number of Addenda: 0 Note Initiated On: 02/17/2021 8:39 AM Estimated Blood Loss: Estimated blood loss: none.
[2021-02-17 09:40] VITALS: BP 178/86
== END 2021-02-17 09:51 | disposition home or self-care (01) ==
LOC: M OPP 07:28
PROVIDERS: ATTEND Internal Medicine Gastroenterology
DX: Z12.11 Encounter for screening for malignant neoplasm of colon (principal); D12.6 Benign neoplasm of colon, unspecified; K57.30 Diverticulosis of large intestine without perforation or abscess without bleeding; K64.8 Other hemorrhoids; K44.9 Diaphragmatic hernia without obstruction or gangrene; R12 Heartburn; Z79.899 Other long term (current) drug therapy; Z88.8 Allergy status to other drugs, medicaments and biological substances; Z85.3 Personal history of malignant neoplasm of breast; Z87.891 Personal history of nicotine dependence

== ENCOUNTER → 2021-05-27 | Outpatient (REF) | payer MEDICARE ==
[~2021-05-27] MED LIST changes: +LOSA50TA28; -LOSA50TA88; -NS 1,000 ML IV ONE
== END ==
LOC: M LAB REF 16:15
PROVIDERS: ATTEND Internal Medicine
DX: Z01.89 Encounter for other specified special examinations (principal)

== ENCOUNTER → 2022-12-16 | Outpatient (REF) | payer MEDICARE | LOC: M LAB REF 12:09 | PROVIDERS: ATTEND Physician Assistant Medical | DX: N39.0 Urinary tract infection, site not specified (principal) ==

== ENCOUNTER → 2023-01-20 | Outpatient (REF) | payer MEDICARE ==
[2023-01-20 20:24] LABS: ATYPICAL LYMPH 9 % (0-5); LYMPHOCYTES 51 % (16-44); METAMYELOCYTES 1 % (0-0); MONOCYTES 2 % (0-5); NEUTROPHILS 36 % (28-66); PLATELET ESTIMATE NORMAL (NORMAL)
== END ==
LOC: M LAB REF 16:16
PROVIDERS: ATTEND Internal Medicine
DX: R61 Generalized hyperhidrosis (principal); D72.9 Disorder of white blood cells, unspecified

== ENCOUNTER → 2023-01-21 | Outpatient (REF) | payer MEDICARE ==
[2023-01-21 14:08] LABS: APPEARANCE, URINE CLEAR (CLEAR); BACTERIA, URINE AUTO NEGATIVE (NEGATIVE); BILIRUBIN, URINE AUTO NEGATIVE (NEGATIVE); BLOOD, URINE BLOOD NEGATIVE (NEGATIVE); COLOR, URINE COLORLESS (YELLOW); GLUCOSE, URINE (UA) AUTO NEGATIVE (NEGATIVE); KETONE, URINE AUTO NEGATIVE (NEGATIVE); LEUKOCYTE ESTERASE, URINE AUTO NEGATIVE (NEGATIVE); NITRITE, URINE AUTO NEGATIVE (NEGATIVE); PROTEIN, URINE AUTO NEGATIVE (NEGATIVE); RBC, URINE AUTO 0 /HPF (0-3); SPECIFIC GRAVITY URINE AUTO 1.002 (1.002-1.035); SQUAMOUS EPITHELIAL CELL UR AU 0 /HPF (0-6); UROBILINOGEN, URINE AUTO 0.2 mg/dL (0.0-2.0); WBC, URINE AUTO 0 /HPF (0-3)
== END ==
LOC: M LAB REF 12:03
PROVIDERS: ATTEND Internal Medicine
DX: R53.81 Other malaise (principal); R35.0 Frequency of micturition; J30.9 Allergic rhinitis, unspecified

== ENCOUNTER → 2023-01-21 | Outpatient (CLI) | payer MEDICARE | LOC: M PLAIMG 12:26 | PROVIDERS: ATTEND Internal Medicine | DX: J30.9 Allergic rhinitis, unspecified (principal) ==

== ENCOUNTER → 2023-01-25 | Outpatient (REF) | payer MEDICARE | LOC: M LAB REF 11:27 | PROVIDERS: ATTEND Internal Medicine | DX: D72.829 Elevated white blood cell count, unspecified (principal) ==

== ENCOUNTER → 2023-02-17 | Outpatient (REF) | payer MEDICARE | LOC: M LAB REF 13:21 | PROVIDERS: ATTEND Internal Medicine | DX: D72.821 Monocytosis (symptomatic) (principal); D72.820 Lymphocytosis (symptomatic) ==

== ENCOUNTER → 2023-02-24 | Outpatient (REF) | payer MEDICARE | LOC: M LAB REF 09:43 | PROVIDERS: ATTEND Internal Medicine | DX: D72.820 Lymphocytosis (symptomatic) (principal) ==

== ENCOUNTER → 2023-07-23 | Outpatient (REF) | payer MEDICARE ==
[2023-07-23 18:49] LABS: BASOPHILS 1 % (0-1); EOSINOPHILS 3 % (0-3); LYMPHOCYTES 51 % (16-44); NEUTROPHILS 22 % (28-66)
[2023-07-23 18:56] LABS: PLATELET ESTIMATE NORMAL (NORMAL)
[2023-07-23 18:57] LABS: ATYPICAL LYMPH 21 % (0-5); MONOCYTES 2 % (0-5)
== END ==
LOC: M LAB REF 17:22
PROVIDERS: ATTEND Internal Medicine
DX: D72.829 Elevated white blood cell count, unspecified (principal)

== ENCOUNTER → 2023-08-04 | Outpatient (CLI) | payer MEDICARE ==
[~2023-08-04] MED LIST changes: +E-Z-GAS II EFFERVESCENT PACKET (SODIUM BICARB./CITRIC ACID/SIMETHICONE) As Ordered ONE; +E-Z-HD 98% w/w 340GM SUSP BTL As Ordered ONE; +E-Z-PAQUE 96% w/w SUSP 176GM BTL As Ordered ONE
== END ==
LOC: M RAD 09:53
PROVIDERS: ATTEND Internal Medicine
DX: R13.10 Dysphagia, unspecified (principal)

== ENCOUNTER 2023-08-25 13:14 | Day surgery (SDC) | payer MEDICARE ==
[~2023-08-25] VITALS: Ht 157.5 cm; Wt 82.1 kg
[~2023-08-25 13:14] MED LIST changes: +D3 S1CAP PO; -E-Z-GAS II EFFERVESCENT PACKET (SODIUM BICARB./CITRIC ACID/SIMETHICONE) As Ordered ONE; -E-Z-HD 98% w/w 340GM SUSP BTL As Ordered ONE; -E-Z-PAQUE 96% w/w SUSP 176GM BTL As Ordered ONE; +LIDOCAINE 2% 100MG/5ML SDV (FOR ANES.) As Ordered ONE; +ULTR5TAB PO; +propofoL 200 MG/20 ML VIAL As Ordered ONE
[2023-08-25] MEDS: NS 1,000 ML IV ONE (13:33)
[2023-08-25] MEDS ORDERED: fentaNYL 100 MCG/2 ML INJECTION As Ordered ONE (13:53)
[2023-08-25 14:57] VITALS: TEMP 97.7
[2023-08-25 15:15] VITALS: BP 155/73; O2SAT 96
== END 2023-08-25 15:18 | disposition home or self-care (01) ==
LOC: M OPP 13:14
PROVIDERS: ATTEND Internal Medicine Gastroenterology
DX: R13.10 Dysphagia, unspecified (principal); K44.9 Diaphragmatic hernia without obstruction or gangrene; K21.9 Gastro-esophageal reflux disease without esophagitis; I10 Essential (primary) hypertension; C85.80 Other specified types of non-Hodgkin lymphoma, unspecified site; Z85.3 Personal history of malignant neoplasm of breast; Z79.899 Other long term (current) drug therapy; Z79.890 Hormone replacement therapy; Z90.13 Acquired absence of bilateral breasts and nipples; Z87.891 Personal history of nicotine dependence; Z88.8 Allergy status to other drugs, medicaments and biological substances
CPT/HCPCS: 43239; J3010

== ENCOUNTER → 2024-07-31 | Outpatient (REF) | payer MEDICARE ==
[~2024-07-31] MED LIST changes: -LIDOCAINE 2% 100MG/5ML SDV (FOR ANES.) As Ordered ONE; -propofoL 200 MG/20 ML VIAL As Ordered ONE
[2024-07-31 19:31] LABS: ATYPICAL LYMPH 19 % (0-5); EOSINOPHILS 1 % (0-3); LYMPHOCYTES 57 % (16-44); METAMYELOCYTES 1 % (0-0); MONOCYTES 4 % (0-5); NEUTROPHILS 18 % (28-66)
[2024-07-31 19:33] LABS: PLATELET ESTIMATE NORMAL (NORMAL)
== END ==
LOC: M LAB REF 14:08
PROVIDERS: ATTEND Internal Medicine
DX: D72.9 Disorder of white blood cells, unspecified (principal)

== ENCOUNTER → 2024-08-01 | Outpatient (CLI) | payer MEDICARE | LOC: M PLAIMG 12:10 | PROVIDERS: ATTEND Internal Medicine | DX: M17.11 Unilateral primary osteoarthritis, right knee (principal) ==

== ENCOUNTER → 2024-10-31 | Outpatient (REF) | payer MEDICARE | LOC: M LAB REF 17:43 | PROVIDERS: ATTEND Internal Medicine | DX: R42 Dizziness and giddiness (principal); R53.83 Other fatigue; K92.2 Gastrointestinal hemorrhage, unspecified ==

== ENCOUNTER 2024-11-27 12:12 | Day surgery (SDC) | payer MEDICARE ==
[~2024-11-27] VITALS: Ht 157.5 cm; Wt 82.6 kg
[~2024-11-27 12:12] MED LIST changes: +AMLO2.5T3 PO; +CHEL100T4 PO; -HYDR12.55; +HYDR12.55 PO; -LEVOTAB10; +LEVOTAB10 PO; +NIAC500T29 PO; -OMEP40CA4; +OMEP40CA4 PO; +OYST500C PO; +SPIR-10 PO; +SYNT125T PO; -SYNT137T7; +SYNT137T7 PO; +ZINC220CA PO
[2024-11-27] MEDS ORDERED: LIDOCAINE 1% MDV 20 ML VIAL As Ordered ONE (14:32)
[2024-11-27 14:53] VITALS: TEMP 98.4
[2024-11-27 15:10] VITALS: BP 133/84; O2SAT 96
== END 2024-11-27 15:12 | disposition home or self-care (01) ==
LOC: M OPP 12:12
PROVIDERS: ATTEND Internal Medicine Gastroenterology
DX: R13.10 Dysphagia, unspecified (principal); Z88.8 Allergy status to other drugs, medicaments and biological substances; Z79.899 Other long term (current) drug therapy